=== PATIENT | female | born 1960 | race Caucasian/White ===

== ENCOUNTER 2024-10-27 21:26 | Emergency (ER) | payer MEDICARE, SELFPAY ==
[2024-10-27 21:26] VITALS: BP 152/59; PULSE 66; RESP 18; TEMP 36.5; O2SAT 98; BMI 31.6
--- NOTE | 2024-10-27 21:36 | [facility].EDGENADL ---
Discharge Plan Disposition Patient Disposition: Home, Self-Care Prescriptions Prescriptions: New amoxicillin-pot clavulanate 875-125 mg tablet 1 tab PO BID 7 Days Qty: 14 0RF No Action acetaminophen [Tylenol] 325 mg tablet 650 mg PO Q6H PRN (Reason: fever or pain) Qty: 90 0RF lidocaine [Aspercreme (lidocaine)] 4 % adhesive patch,medicated 2 patch topical DAILY Qty: 60 0RF melatonin 5 mg capsule 5 mg PO QHS Qty: 90 0RF donepezil 10 mg tablet 10 mg PO DAILY Qty: 90 3RF quetiapine 25 mg tablet 25 mg PO DAILY Qty: 90 3RF quetiapine 50 mg tablet 50 mg PO HS Qty: 90 3RF quetiapine 25 mg tablet 12.5 mg PO QAM Qty: 90 2RF amlodipine 5 mg tablet 5 mg PO DAILY Qty: 90 3RF cetirizine [All Day Allergy (cetirizine)] 10 mg tablet 10 mg PO DAILY Qty: 90 0RF memantine 10 mg tablet 10 mg PO BID Qty: 180 3RF mesalamine 1.2 gram tablet,delayed release (DR/EC) 2.4 g PO DAILY Qty: 180 0RF montelukast 10 mg tablet 10 mg PO HS Qty: 90 3RF olmesartan-hydrochlorothiazide 40-12.5 mg tablet 1 tab PO DAILY Qty: 90 3RF propranolol 10 mg tablet 10 mg PO TID Qty: 270 3RF divalproex [Depakote] 250 mg tablet,delayed release (DR/EC) 250 mg PO TID Qty: 90 2RF lorazepam 0.5 mg tablet 0.5 mg PO TID Qty: 90 0RF Referrals Follow up/Referrals: Danielito Castle MD [Primary Care Provider] - See instructions Activity Restrictions/Add. Instructions Additional Instructions/Restrictions: Please take antibiotics as prescribed for treatment of urinary tract infection. The CT scan showed that there was a mild age-indeterminate compression deformity of T12 and L1. No evidence of spinal cord injury or other injury on full CT scans. Labs otherwise normal. Clinical Impressions Clinical Impression: Acute UTI, Falls frequently, T12 compression fracture, Compression fracture of L1 vertebra Print Language Print Language: Yoruba Discharge ED Provider: Collin Segovia General Adult HPI <Adam Arauz MD - Last Filed: 10/28/24 00:20> General Chief complaint: Fall Stated complaint: fall x3 Time Seen by Provider: 10/27/24 21:55 History of Present Illness HPI narrative: Patient is a 64-year-old past medical history of type 2 diabetes, hypertension, dementia presenting for multiple falls. Patient unable to provide medical history due to baseline mental status, per EMS patient has had 3 falls today, with the most recent being unwitnessed but patient being found down by her [facility] roommate. Patient pointed to her right hip when asked if she was in pain. Related Data Previous Rx's ?Medication ?Instructions ?Recorded acetaminophen 325 mg tablet 650 mg (2 x 325 mg) PO Q6H PRN 07/20/24 (Tylenol) fever or pain #90 tabs amlodipine 5 mg tablet 5 mg PO DAILY #90 tabs 07/20/24 cetirizine 10 mg tablet (All Day 10 mg PO DAILY #90 tabs 07/20/24 Allergy (cetirizine)) donepezil 10 mg tablet 10 mg PO DAILY #90 tabs 07/20/24 lidocaine 4 % topical patch 2 patch topical DAILY #60 ea 07/20/24 (Aspercreme (lidocaine)) melatonin 5 mg capsule 5 mg PO QHS #90 caps 07/20/24 memantine 10 mg tablet 10 mg PO BID #180 tabs 07/20/24 mesalamine 1.2 gram tablet,delayed 2.4 g (2 x 1.2 gram) PO DAILY #180 07/20/24 release tabs montelukast 10 mg tablet 10 mg PO HS #90 tabs 07/20/24 olmesartan 40 1 tab PO DAILY #90 tabs 07/20/24 mg-hydrochlorothiazide 12.5 mg tablet propranolol 10 mg tablet 10 mg PO TID #270 tabs 07/20/24 quetiapine 25 mg tablet 12.5 mg (1/2 x 25 mg) PO QAM #90 07/20/24 tabs quetiapine 25 mg tablet 25 mg PO DAILY #90 tabs 07/20/24 quetiapine 50 mg tablet 50 mg PO HS #90 tabs 07/20/24 divalproex 250 mg tablet,delayed 250 mg PO TID #90 tabs 09/26/24 release (Depakote) lorazepam 0.5 mg tablet 0.5 mg PO TID #90 tabs 10/24/24 amoxicillin 875 mg-potassium 1 tab PO BID 7 days #14 tabs 10/28/24 clavulanate 125 mg tablet Allergies Allergy/AdvReac Type Severity Reaction Status Date / Time iodine Allergy Mild Verified 09/26/24 16:49 Sulfa (Sulfonamide Allergy Mild Verified 09/26/24 16:49 Antibiotics) [facility] <Adam Arauz MD - Last Filed: 10/28/24 00:20> [facility] Disclaimer: The information contained in this section may have been updated after the patient was seen, as this information can be updated by other users. Medical History Unable to care for self Impaired functional mobility, balance, and endurance Abdominal aortic aneurysm (AAA) History of vaginal delivery x 2 Abnormal colonoscopy July 2022, polyps x 3 Benign colonic polyp Dementia Seizure disorder Crohn's disease Diabetes mellitus, type II Hyperlipidemia Hypertension Surgical History History of total knee replacement right History of cholecystectomy Social History Smoking Status: Never smoker alcohol intake: current substance use type: denies use current occupational status: retired Travel in the last 8 weeks: None marital status: Have you lived/traveled outside [place] in past 30 days?: No Contact w/someone who lives/traveled outside US past 30 days?: No Exposure to someone with infectious disease in past 14 days?: No Do you have a fever (greater than 100.4 F or 38 C)?: No Have you tested positive for COVID-19: No Exposed to someone with COVID-19 in past 14 days?: No Do you have a sore throat?: No Do you have a cough?: No Do you have any weakness?: No Do you have any diarrhea?: No Are you experiencing any unusual bleeding?: No Do you have any muscle aches/pain?: No Do you have any abdominal pain?: No Are you experiencing loss of taste or smell?: No Other Medical History Have you received the Pneumonia Vaccine: No (unknown) <Adam Arauz MD - Last Filed: 10/28/24 00:20> ROS Obtained: Yes unobtainable due to mental condition Physical Exam <Adam Arauz MD - Last Filed: 10/28/24 00:20> General General appearance: in no apparent distress and other (Sleepy but arousable) Head Head exam: atraumatic Eye Eye exam: Present normal appearance and PERRL; Absent scleral icterus, conjunctival redness, jaundice or conjunctival injection ENT ENT exam: Present normal exam and normal oropharynx Neck Neck exam: Present other (C-collar in place, no obvious grimacing to C-spine palpation) Chest Chest inspection: Present normal inspection and symmetric chest wall rise; Absent tenderness (No grimacing to palpation of chest wall) Respiratory Respiratory exam: Present normal lung sounds bilaterally; Absent respiratory distress, wheezes or stridor Cardiovascular Cardiovascular exam: Present regular rate and normal rhythm Abdominal Exam Abdominal exam: Present soft; Absent distention, tenderness, guarding or rebound Extremities Exam Extremities exam: Present tenderness (Possible tenderness to right hip) Neurological Exam Neurological exam: Present other (Opens eyes to voice, follows directions, confused at baseline, withdraws to pain in all 4 extremities) Skin Skin exam: Present warm and dry Medical Decision Making <Adam Arauz MD - Last Filed: 10/28/24 00:20> Medical Records Screening: Per USPSTF and CDC recommendations, given the prevalence of disease in our region, it is our hospital?s policy to screen for HIV and viral Hepatitis for all patients aged 18 and over and those with ongoing risk factors. Vital Signs: 10/27/24 21:26 10/27/24 22:08 10/27/24 22:21 Temperature 97.7 F Temperature Source Oral Pulse Rate 58 L 64 Pulse Rate [Right] 66 Respiratory Rate 18 Blood Pressure 144/68 H 164/81 H Blood Pressure [Right Arm] 152/59 H Blood Pressure Mean 89 Blood Pressure Mean [Right Arm] 90 Blood Pressure Position [Right Arm] Supine 02 Sat by Pulse Oximetry 98 92 L 98 Oxygen Delivery Method Room Air 10/27/24 22:30 10/27/24 23:01 10/27/24 23:44 Temperature Temperature Source Pulse Rate 60 56 L 56 L Pulse Rate [Right] Respiratory Rate Blood Pressure 141/78 H 118/61 125/60 Blood Pressure [Right Arm] Blood Pressure Mean 89 81 77 Blood Pressure Mean [Right Arm] Blood Pressure Position [Right Arm] 02 Sat by Pulse Oximetry 96 93 L 95 Oxygen Delivery Method 10/28/24 00:00 10/28/24 00:37 Temperature Temperature Source Pulse Rate 56 L 65 Pulse Rate [Right] Respiratory Rate Blood Pressure 105/60 L 122/78 Blood Pressure [Right Arm] Blood Pressure Mean 70 85 Blood Pressure Mean [Right Arm] Blood Pressure Position [Right Arm] 02 Sat by Pulse Oximetry 93 L 70 L Oxygen Delivery Method Lab Data Lab Results 10/27/24 21:13: WBC 12.6 H, RBC 4.91, Hgb 13.7, Hct 41.8, MCV 85.1, MCH 27.9, MCHC 32.8, RDW 16.7, Plt Count 317, MPV 12.0 H, Neut % (Auto) 74.5, Lymph % (Auto) 13.0, [place] % (Auto) 10.3 H, Eos % (Auto) 0.2, Baso % (Auto) 1.6, Neut # (Auto) 9.4 H, Lymph # (Auto) 1.6, Carson # (Auto) 1.3 H, Eos # (Auto) 0.0, Baso # (Auto) 0.2, PT 11.4, INR 1.02, APTT 27.2, Sodium 139, Potassium 3.7, Chloride 107, Carbon Dioxide 28, Anion Gap 7.7, BUN 18 H, Creatinine 1.10 H, Estimated Creat Clear 69, Estimated GFR 50 L, Est GFR ( Amer) 60, Glucose 137 H, Calcium 9.3, Total Bilirubin 0.6, AST 26, ALT 19, Alkaline Phosphatase 67, Total Creatine Kinase 56, Troponin I < 0.01, Total Protein 6.7, Albumin 3.6, Globulin 3.1, Albumin/Globulin Ratio 1.2, Lipase 92 10/27/24 22:15: VBG pH 7.45 H, VBG pCO2 41.3, VBG pO2 21.2 L, VBG HCO3 28.1, VBG Total CO2 29.4 H, VBG O2 Saturation 42.6 L, VBG Base Excess 4.2 H, VBG Lactic Acid 1.7, Urine Color Yellow, Urine Appearance Clear, Urine pH 7.0, Ur Specific [place] 1.020, Urine Protein 1+ A, Urine Glucose (UA) Negative, Urine Ketones 1+, Urine Blood Negative, Urine Nitrate Positive A, Urine Bilirubin Negative, Urine Urobilinogen 1.0, Ur Leukocyte Esterase Trace, Urine RBC 20-50, Urine WBC 50-100, Ur Squamous Epith Cells 10-20, Amorphous Sediment 4+, Urine Bacteria 1+, Urine Mucus 2+ 10/27/24 21:13 10/27/24 21:13 Orders (Tests/Meds): ED MEDICATIONS Generic Name Dose Route Start Last Admin Trade Name Freq PRN Reason Stop Dose Admin Sodium Chloride 10 ml 10/27/24 22:03 Sodium Chloride 0.9% 10ml Flush Syringe IV 11/26/24 22:02 NEEDED PRN Maintain IV Site Discontinued Medications Generic Name Dose Route Start Last Admin Trade Name Freq PRN Reason Stop Dose Admin Ceftriaxone Sodium 1 gm/ 50 mls @ 100 mls/hr 10/28/24 00:11 10/28/24 00:17 Sodium Chloride IV 10/28/24 00:40 100 mls/hr ONCE ONE Administration ORDERS Category Date Time Status CT abdomen pelvis wo con Stat Cat Scan 10/27/24 22:[address] bony pelvis Stat Cat Scan 10/27/24 22:[address] cervical spine wo con Stat Cat Scan 10/27/24 22:[address] chest wo con Stat Cat Scan 10/27/24 22:[address] head/brain wo con Stat Cat Scan 10/27/24 22:[address] lumbar spine wo con Stat Cat Scan 10/27/24 22:[address] thoracic spine wo con Stat Cat Scan 10/27/24 22:03 Completed XR chest portable Stat Exams 10/27/24 22:03 Completed XR femur RT 2V Stat Exams 10/27/24 22:16 Completed XR knee RT 3V Stat Exams 10/27/24 22:16 Completed XR pelvis 1-2V Stat Exams 10/27/24 22:03 Completed Activated Partial Thrombo Time Stat Lab 10/27/24 21:13 Completed Complete Blood Count Auto Diff Stat Lab 10/27/24 21:13 Completed Comprehensive Metabolic Panel Stat Lab 10/27/24 21:13 Completed Creatine Kinase Stat Lab 10/27/24 21:13 Completed Lipase Stat Lab 10/27/24 21:13 Completed Prothrombin Time INR Stat Lab 10/27/24 21:13 Completed Troponin I Stat Lab 10/27/24 21:13 Completed Urinalysis and Microscopic Stat Lab 10/27/24 22:15 Completed Urine Culture Stat Micro 10/27/24 22:15 Received Venous Blood Gas Stat RT 10/27/24 22:15 Completed Medical Decision Narrative: In summary, this 64-year-old female presents to the emergency department today with fall. On initial evaluation patient is confused at baseline, no obvious deformities of extremity, no obvious grimacing to abdomen or chest wall. Due to being unable to get a good history based on patient's mental status CTs, labs and x-rays were ordered. Differential diagnosis includes but is not limited to intracranial injury, spinal cord injury, intra-abdominal injury, intrathoracic injury. Labs personally reviewed demonstrate mildly elevated creatinine, but appropriate for age, mild leukocytosis, urinalysis concerning for UTI. XR personally interpreted demonstrates no obvious pelvic or leg fracture or pneumothorax. CT imaging personally interpreted demonstrate no large intracranial hemorrhage, stroke, pneumoperitoneum, pneumothorax or dissection. On reassessment similar to previous exam, mental status unchanged, labs concerning for possible UTI, patient will be sent home on antibiotics.. <Collin Segovia MD - Last Filed: 10/28/24 01:22> Medical Records Medical records reviewed: Yes I reviewed the patient's medical records. Jonnathan Inquiry Pt receiving controlled substance: No Vital Signs: 10/27/24 21:26 10/27/24 22:08 10/27/24 22:21 Temperature 97.7 F Temperature Source Oral Pulse Rate 58 L 64 Pulse Rate [Right] 66 Respiratory Rate 18 Blood Pressure 144/68 H 164/81 H Blood Pressure [Right Arm] 152/59 H Blood Pressure Mean 89 Blood Pressure Mean [Right Arm] 90 Blood Pressure Position [Right Arm] Supine 02 Sat by Pulse Oximetry 98 92 L 98 Oxygen Delivery Method Room Air 10/27/24 22:30 10/27/24 23:01 10/27/24 23:44 Temperature Temperature Source Pulse Rate 60 56 L 56 L Pulse Rate [Right] Respiratory Rate Blood Pressure 141/78 H 118/61 125/60 Blood Pressure [Right Arm] Blood Pressure Mean 89 81 77 Blood Pressure Mean [Right Arm] Blood Pressure Position [Right Arm] 02 Sat by Pulse Oximetry 96 93 L 95 Oxygen Delivery Method 10/28/24 00:00 10/28/24 00:37 Temperature Temperature Source Pulse Rate 56 L 65 Pulse Rate [Right] Respiratory Rate Blood Pressure 105/60 L 122/78 Blood Pressure [Right Arm] Blood Pressure Mean 70 85 Blood Pressure Mean [Right Arm] Blood Pressure Position [Right Arm] 02 Sat by Pulse Oximetry 93 L 70 L Oxygen Delivery Method Lab Data Lab Results 10/27/24 21:13: WBC 12.6 H, RBC 4.91, Hgb 13.7, Hct 41.8, MCV 85.1, MCH 27.9, MCHC 32.8, RDW 16.7, Plt Count 317, MPV 12.0 H, Neut % (Auto) 74.5, Lymph % (Auto) 13.0, Carson % (Auto) 10.3 H, Eos % (Auto) 0.2, Baso % (Auto) 1.6, Neut # (Auto) 9.4 H, Lymph # (Auto) 1.6, Carson # (Auto) 1.3 H, Eos # (Auto) 0.0, Baso # (Auto) 0.2, PT 11.4, INR 1.02, APTT 27.2, Sodium 139, Potassium 3.7, Chloride 107, Carbon Dioxide 28, Anion Gap 7.7, BUN 18 H, Creatinine 1.10 H, Estimated Creat Clear 69, Estimated GFR 50 L, Est GFR ( Amer) 60, Glucose 137 H, Calcium 9.3, Total Bilirubin 0.6, AST 26, ALT 19, Alkaline Phosphatase 67, Total Creatine Kinase 56, Troponin I < 0.01, Total Protein 6.7, Albumin 3.6, Globulin 3.1, Albumin/Globulin Ratio 1.2, Lipase 92 10/27/24 22:15: VBG pH 7.45 H, VBG pCO2 41.3, VBG pO2 21.2 L, VBG HCO3 28.1, VBG Total CO2 29.4 H, VBG O2 Saturation 42.6 L, VBG Base Excess 4.2 H, VBG Lactic Acid 1.7, Urine Color Yellow, Urine Appearance Clear, Urine pH 7.0, Ur Specific [place] 1.020, Urine Protein 1+ A, Urine Glucose (UA) Negative, Urine Ketones 1+, Urine Blood Negative, Urine Nitrate Positive A, Urine Bilirubin Negative, Urine Urobilinogen 1.0, Ur Leukocyte Esterase Trace, Urine RBC 20-50, Urine WBC 50-100, Ur Squamous Epith Cells 10-20, Amorphous Sediment 4+, Urine Bacteria 1+, Urine Mucus 2+ Orders (Tests/Meds): ED MEDICATIONS Generic Name Dose Route Start Last Admin Trade Name Freq PRN Reason Stop Dose Admin Sodium Chloride 10 ml 10/27/24 22:03 Sodium Chloride 0.9% 10ml Flush Syringe IV 11/26/24 22:02 NEEDED PRN Maintain IV Site Discontinued Medications Generic Name Dose Route Start Last Admin Trade Name Freq PRN Reason Stop Dose Admin Ceftriaxone Sodium 1 gm/ 50 mls @ 100 mls/hr 10/28/24 00:11 10/28/24 00:17 Sodium Chloride IV 10/28/24 00:40 100 mls/hr ONCE ONE Administration ORDERS Category Date Time Status CT abdomen pelvis wo con Stat Cat Scan 10/27/24 22:[address] bony pelvis Stat Cat Scan 10/27/24 22:[address] cervical spine wo con Stat Cat Scan 10/27/24 22:[address] chest wo con Stat Cat Scan 10/27/24 22:[address] head/brain wo con Stat Cat Scan 10/27/24 22:[address] lumbar spine wo con Stat Cat Scan 10/27/24 22:[address] thoracic spine wo con Stat Cat Scan 10/27/24 22:03 Completed XR chest portable Stat Exams 10/27/24 22:03 Completed XR femur RT 2V Stat Exams 10/27/24 22:16 Completed XR knee RT 3V Stat Exams 10/27/24 22:16 Completed XR pelvis 1-2V Stat Exams 10/27/24 22:03 Completed Activated Partial Thrombo Time Stat Lab 10/27/24 21:13 Completed Complete Blood Count Auto Diff Stat Lab 10/27/24 21:13 Completed Comprehensive Metabolic Panel Stat Lab 10/27/24 21:13 Completed Creatine Kinase Stat Lab 10/27/24 21:13 Completed Lipase Stat Lab 10/27/24 21:13 Completed Prothrombin Time INR Stat Lab 10/27/24 21:13 Completed Troponin I Stat Lab 10/27/24 21:13 Completed Urinalysis and Microscopic Stat Lab 10/27/24 22:15 Completed Urine Culture Stat Micro 10/27/24 22:15 Received Venous Blood Gas Stat RT 10/27/24 22:15 Completed Medical Decision Narrative: In summary, this 64-year-old female presents to the emergency department today with fall. On initial evaluation patient is confused at baseline, no obvious deformities of extremity, no obvious grimacing to abdomen or chest wall. Due to being unable to get a good history based on patient's mental status CTs, labs and x-rays were ordered. Differential diagnosis includes but is not limited to intracranial injury, spinal cord injury, intra-abdominal injury, intrathoracic injury. Labs personally reviewed demonstrate mildly elevated creatinine, but appropriate for age, mild leukocytosis, urinalysis concerning for UTI. XR personally interpreted demonstrates no obvious pelvic or leg fracture or pneumothorax. CT imaging personally interpreted demonstrate no large intracranial hemorrhage, stroke, pneumoperitoneum, pneumothorax or dissection. On reassessment similar to previous exam, mental status unchanged, labs concerning for possible UTI, patient will be sent home on antibiotics. Luca SUGGS: I assumed care of the patient at the time of handoff from the prior provider. CT imaging does show a mild compression deformity of T12 and L1. These are age-indeterminate. I called and spoke with the patient's who is her POA and discussed these findings with him. He reports that he would feel most comfortable with her being discharged back home to [facility] with treatment for UTI and continued monitoring, rather than pursuing acute spine evaluation at this time. I think this is reasonable given the mildness of the injury, uncertain acuity, and patient functional status. Patient was given ceftriaxone and discharged with prescription for Augmentin for treatment for urinary tract infection given sulfa allergy. Critical Care <Collin Segovia MD - Last Filed: 10/28/24 01:22> Critical Care Time Critical Care Time: No
--- NOTE | 2024-10-27 22:03 | CT_ITS ---
PROCEDURE INFORMATION: Exam: CT Pelvis Without Contrast, Skeleton Exam date and time: 10/27/2024 11:32 PM Age: 64 years old Clinical indication: Injury or trauma; Fall; Additional info: Trauma, critical injury suspected TECHNIQUE: Imaging protocol: Computed tomography of the pelvis without contrast. Exam focused on the skeleton. Radiation optimization: All CT scans at this facility use at least one of these dose optimization techniques: automated exposure control; mA and/or kV adjustment per patient size (includes targeted exams where dose is matched to clinical indication); or iterative reconstruction. COMPARISON: 1. CT LUMBAR SPINE WO CON 10/27/2024 11:30 PM 2. CR XR PELVIS 1-2V 10/27/2024 10:23 PM FINDINGS: Urinary bladder: Normal urinary bladder. Bones/joints: No acute fracture or dislocation. Soft tissues: Small fat containing midline ventral hernias. No significant soft tissue hematoma. IMPRESSION: No acute findings.
--- NOTE | 2024-10-27 22:03 | XR_ITS ---
PROCEDURE INFORMATION: Exam: XR Chest Exam date and time: 10/27/2024 10:23 PM Age: 64 years old Clinical indication: Injury or trauma; Fall; Other: Pain TECHNIQUE: Imaging protocol: Radiologic exam of the chest. Views: 1 view. COMPARISON: CT CHEST WO CON 10/27/2024 11:35 PM FINDINGS: Lungs: No consolidation, mass, or pulmonary edema. Pleural spaces: No pneumothorax or pleural effusion. Heart/Mediastinum: Cardiomediastinal silhouette is within normal limits. Bones/joints: No acute osseous abnormality. IMPRESSION: No acute findings.
--- NOTE | 2024-10-27 22:03 | CT_ITS ---
PROCEDURE INFORMATION: Exam: CT Chest Without Contrast; Diagnostic Exam date and time: 10/27/2024 11:35 PM Age: 64 years old Clinical indication: Injury or trauma; Fall; Additional info: Trauma, critical injury suspected TECHNIQUE: Imaging protocol: Diagnostic computed tomography of the chest without contrast. Radiation optimization: All CT scans at this facility use at least one of these dose optimization techniques: automated exposure control; mA and/or kV adjustment per patient size (includes targeted exams where dose is matched to clinical indication); or iterative reconstruction. COMPARISON: 1. CT THORACIC SPINE WO CON 10/27/2024 11:[address] ABDOMEN PELVIS WO CON 10/27/2024 11:37 PM FINDINGS: Lungs: Mild bilateral hypoventilatory changes. No consolidation or definite pulmonary contusion. Pleural spaces: No pneumothorax or pleural effusion. Heart: Borderline cardiomegaly. No pericardial effusion. Coronary arteries: Mild coronary artery calcifications. Lymph nodes: No adenopathy. Vasculature: No thoracic aortic aneurysm. Bones/joints: Age indeterminate mild compression fractures of T12 and L1. No other fractures identified. Soft tissues: No definite chest wall hematoma. IMPRESSION: 1. Age indeterminate mild compression fractures of T12 and L1. 2. Mild hypoventilatory changes.
--- NOTE | 2024-10-27 22:03 | CT_ITS ---
PROCEDURE INFORMATION: Exam: CT Thoracic Spine Without Contrast Exam date and time: 10/27/2024 11:27 PM Age: 64 years old Clinical indication: Injury or trauma; Fall; Additional info: Trauma, critical injury suspected TECHNIQUE: Imaging protocol: Computed tomography of the thoracic spine without contrast. Radiation optimization: All CT scans at this facility use at least one of these dose optimization techniques: automated exposure control; mA and/or kV adjustment per patient size (includes targeted exams where dose is matched to clinical indication); or iterative reconstruction. COMPARISON: 1. CT CERVICAL SPINE WO CON 10/27/2024 11:[address] LUMBAR SPINE WO CON 10/27/2024 11:30 PM FINDINGS: Bones/joints: Age indeterminate mild compression fractures of T12 and L1. Mild chronic degenerative changes without significant spinal stenosis. Soft tissues: Visualized paravertebral soft tissues demonstrate no acute abnormality. Lungs: Mild hypoventilatory changes in the visualized lungs. IMPRESSION: Age indeterminate mild compression fractures of T12 and L1. If clinically indicated, consider further evaluation with MRI to assess for marrow edema and acuity.
--- NOTE | 2024-10-27 22:03 | CT_ITS ---
PROCEDURE INFORMATION: Exam: CT Lumbar Spine Without Contrast Exam date and time: 10/27/2024 11:30 PM Age: 64 years old Clinical indication: Injury or trauma; Fall; Additional info: Trauma, critical injury suspected TECHNIQUE: Imaging protocol: Computed tomography of the lumbar spine without contrast. Radiation optimization: All CT scans at this facility use at least one of these dose optimization techniques: automated exposure control; mA and/or kV adjustment per patient size (includes targeted exams where dose is matched to clinical indication); or iterative reconstruction. COMPARISON: 1. CT THORACIC SPINE WO CON 10/27/2024 11:[address] ABDOMEN PELVIS WO CON 10/27/2024 11:37 PM FINDINGS: Bones/joints: Age indeterminate mild compression fractures of T12 and L1. No retropulsion. [id number] multilevel degenerative changes without severe spinal stenosis. Soft tissues: Visualized paravertebral soft tissues demonstrate no acute abnormality. IMPRESSION: Age indeterminate mild compression fractures of T12 and L1. No retropulsion. If clinically indicated, consider further evaluation with MRI to assess for marrow edema and acuity.
--- NOTE | 2024-10-27 22:03 | CT_ITS ---
PROCEDURE INFORMATION: Exam: CT Abdomen And Pelvis Without Contrast Exam date and time: 10/27/2024 11:37 PM Age: 64 years old Clinical indication: Injury or trauma; Fall; Additional info: Trauma, critical injury suspected TECHNIQUE: Imaging protocol: Computed tomography of the abdomen and pelvis without contrast. Radiation optimization: All CT scans at this facility use at least one of these dose optimization techniques: automated exposure control; mA and/or kV adjustment per patient size (includes targeted exams where dose is matched to clinical indication); or iterative reconstruction. COMPARISON: 1. CT BONY PELVIS 10/27/2024 11:[address] CHEST WO CON 10/27/2024 11:[address] LUMBAR SPINE WO CON 10/27/2024 11:30 PM FINDINGS: Limitations: Evaluation is limited without IV and oral contrast. Liver: Normal liver. Gallbladder and biliary ducts: Status post cholecystectomy. No biliary dilatation. Pancreas: Normal pancreas. No ductal dilation. Spleen: Status post splenectomy. Adrenal glands: Normal adrenal glands. Kidneys and ureters: Normal kidneys. No hydronephrosis. No calculus. Stomach and bowel: No bowel wall thickening. No bowel obstruction. Appendix: Normal appendix. Intraperitoneal space: No free fluid or free air. Vasculature: Scattered vascular calcifications. No abdominal aortic aneurysm. Lymph nodes: No adenopathy. Urinary bladder: Normal urinary bladder. Reproductive: Uterus and adnexal structures are grossly unremarkable. Bones/joints: Age indeterminate mild compression fractures of T12 and L1. No other acute osseous abnormality. Severe chronic degenerative changes in the lumbar spine. Soft tissues: Small fat containing midline ventral and umbilical hernias. No definite soft tissue hematoma. IMPRESSION: 1. Age indeterminate mild compression fractures of T12 and L1. 2. Status post splenectomy. 3. Status post cholecystectomy.
--- NOTE | 2024-10-27 22:03 | CT_ITS ---
PROCEDURE INFORMATION: Exam: CT Head Without Contrast Exam date and time: 10/27/2024 11:22 PM Age: 64 years old Clinical indication: Injury or trauma; Fall; Additional info: Trauma, critical injury suspected TECHNIQUE: Imaging protocol: Computed tomography of the head without contrast. Radiation optimization: All CT scans at this facility use at least one of these dose optimization techniques: automated exposure control; mA and/or kV adjustment per patient size (includes targeted exams where dose is matched to clinical indication); or iterative reconstruction. COMPARISON: CT HEAD/BRAIN WO CON 10/27/2024 11:22 PM FINDINGS: Brain: Age-related volume loss. Decreased attenuation of the supratentorial white matter is likely secondary to chronic microvascular ischemia. No acute intracranial hemorrhage, midline shift or intracranial mass effect. Cerebral ventricles: Ventriculomegaly is commensurate for degree of volume loss. Paranasal sinuses: Visualized sinuses are unremarkable. No fluid levels. Mastoid air cells: Visualized mastoid air cells are well aerated. Bones: Unremarkable. No acute fracture. Soft tissues: Unremarkable. IMPRESSION: No acute intracranial abnormality.
--- NOTE | 2024-10-27 22:03 | CT_ITS ---
PROCEDURE INFORMATION: Exam: CT Cervical Spine Without Contrast Exam date and time: 10/27/2024 11:25 PM Age: 64 years old Clinical indication: Injury or trauma; Fall; Additional info: Trauma, critical injury suspected TECHNIQUE: Imaging protocol: Computed tomography of the cervical spine without contrast. Radiation optimization: All CT scans at this facility use at least one of these dose optimization techniques: automated exposure control; mA and/or kV adjustment per patient size (includes targeted exams where dose is matched to clinical indication); or iterative reconstruction. COMPARISON: CT HEAD/BRAIN WO CON 10/27/2024 11:22 PM FINDINGS: Limitations: Limited by artifact arising from metallic dental hardware/dental amalgam. Bones: Trace anterolisthesis of C7 on T1, T1 on T2 and T2 on T3. Trace retrolisthesis of C5 on C6. Vertebral body heights are preserved. Mild degenerative change about the dens. Moderate prevertebral osteophytosis. Bilateral facet joint degenerative change. Multilevel disc space narrowing with degenerative endplate change. No acute cervical spine fracture. At least mild central canal stenosis at C5-C6 and C6-C7. Multilevel cervical foraminal stenoses. Lungs: Lung apices are normal. Pleural spaces: No visible pneumothorax. Vasculature: Vascular calcification. Soft tissues: Unremarkable. IMPRESSION: No acute cervical spine fracture.
--- NOTE | 2024-10-27 22:03 | XR_ITS ---
PROCEDURE INFORMATION: Exam: XR Pelvis Exam date and time: 10/27/2024 10:23 PM Age: 64 years old Clinical indication: Injury or trauma; Fall; Other: Pain TECHNIQUE: Imaging protocol: Radiologic exam of the pelvis. Views: 1 or 2 view. COMPARISON: CT BONY PELVIS 10/27/2024 11:32 PM FINDINGS: Bones/joints: No acute fracture or dislocation. Soft tissues: Unremarkable. IMPRESSION: No acute findings.
[2024-10-27 22:08] VITALS: BP 144/68; PULSE 58; O2SAT 92
--- NOTE | 2024-10-27 22:16 | XR_ITS ---
PROCEDURE INFORMATION: Exam: XR Right Knee Exam date and time: 10/27/2024 10:23 PM Age: 64 years old Clinical indication: Injury or trauma; Fall; Other: Pain; Additional info: Right leg pain TECHNIQUE: Imaging protocol: Radiologic exam of the right knee. Views: 3 views. COMPARISON: CR XR FEMUR RT 2V 10/27/2024 10:23 PM FINDINGS: Bones/joints: Status post right total knee arthroplasty, with hardware appearing grossly unremarkable. No acute fracture or dislocation. No definite joint effusion. Soft tissues: Normal. IMPRESSION: 1. No acute findings. 2. Status post right total knee arthroplasty, with hardware appearing grossly unremarkable.
--- NOTE | 2024-10-27 22:16 | XR_ITS ---
PROCEDURE INFORMATION: Exam: XR Right Femur Exam date and time: 10/27/2024 10:23 PM Age: 64 years old Clinical indication: Injury or trauma; Fall; Other: Pain; Additional info: Right leg pain TECHNIQUE: Imaging protocol: Radiologic exam of the right femur. Views: 2 views. COMPARISON: 1. CR XR KNEE RT 3V 10/27/2024 10:[address] BONY PELVIS 10/27/2024 11:32 PM 3. CR XR PELVIS 1-2V 10/27/2024 10:23 PM FINDINGS: Bones/joints: No acute fracture or dislocation. Status post right total knee arthroplasty, with no obvious complication noted. Soft tissues: Unremarkable. IMPRESSION: No acute findings.
[2024-10-27 22:21] VITALS: BP 164/81; PULSE 64; O2SAT 98
[2024-10-27 22:27] LABS: Albumin Level 3.6 g/dl (3.5-5.0)
[2024-10-27 22:28] LABS: Chloride 107 mmol/L (98-107); Potassium 3.7 mmoL/L (3.5-5.1); Sodium 139 mmol/L (136-145)
[2024-10-27 22:29] LABS: Appearance,Urine CLEAR (Clear); Blood, Urine Negative (Negative); Color,Urine YELLOW (Yellow); Glucose,Urine (UA) Negative (Negative); Ketones,Urine 1+ (Negative); Leukocyte Esterase,Urine TRACE (Negative); Microscopic, Urine URINE MICROSCOPIC (MICROSCOPIC); Nitrate,Urine POSITIVE (Negative); Protein,Urine 1+ (Negative)
[2024-10-27 22:30] VITALS: BP 141/78; PULSE 60; O2SAT 96
[2024-10-27 22:30] LABS: Alanine Aminotransferase 19 U/L (12-78); Alkaline Phosphatase 67 U/L (38-126); Anion Gap 7.7 mEq/L (5-15); Aspartate Amino Transferase 26 U/L (14-36); Bilirubin,Total 0.6 mg/dl (0.2-1.3); Blood Urea Nitrogen 18 mg/dl (7-17); Carbon Dioxide 28 mmol/L (22.0-30.0); Creatinine Clearance Estimated 69 mL/min (50-200); Estimated Glomerular Filt Rate 50 ml/min (>60); GFR (African American) 60 ML/MIN (>60)
[2024-10-27 22:31] LABS: Bilirubin,Urine Negative (Negative)
[2024-10-27 22:31] LABS: Albumin/Globulin Ratio 1.2 (1.1-1.8); Calcium 9.3 mg/dl (8.4-10.2); Creatine Kinase 56 U/L (30-135); Globulin 3.1 g/dL (1.3-3.2); Glucose 137 mg/dl (74-100); Lipase 92 U/L (23-300); Total Protein,Serum 6.7 g/dl (6.3-8.2)
[2024-10-27 22:34] LABS: Lactate Venous 1.7 mmol/L (0.4-2.0); VBG Base Excess 4.2 mmol/L (-2.4-2.3); VBG HCO3 28.1 mmol/L (23-30); VBG Oxygen Saturation 42.6 % (50-70); VBG PCO2 41.3 mmol/L (35-51); VBG PH 7.45 mmol/L (7.31-7.41); VBG PO2 21.2 mmol/L (28-40); VBG Total CO2 29.4 mmol/L (23-27)
[2024-10-27 22:34] LABS: Activated Partial Thrombo Time 27.2 seconds (22.8-30.6); INR 1.02 (0.9-1.1); Prothrombin Time 11.4 seconds (10.1-12.5)
[2024-10-27 22:40] LABS: Hematocrit 41.8 % (37.0-47.0); Hemoglobin 13.7 g/dL (12.2-16.2); Mean Corpuscular HGB Conc 32.8 g/dL (31.8-35.4); Mean Corpuscular Hemoglobin 27.9 pg (27.0-31.2); Mean Corpuscular Volume 85.1 fl (81-99); Platelet Count 317 K/mm3 (142-424); Red Blood Count 4.91 M/mm3 (4.20-5.40); Red Cell Distribution Width 16.7 % (11.5-17.5); White Blood Count 12.6 K/mm3 (4.8-10.8)
[2024-10-27 22:41] LABS: Basophils # 0.2 K/mm3 (0-0.2); Basophils % 1.6 % (0.1-2.0); Eosinophils % 0.2 % (0.1-12.0); Lymphocytes # 1.6 K/mm3 (0.7-4.5); Monocytes # 1.3 K/mm3 (0.1-1.0); Monocytes % 10.3 % (1.7-9.3); Neutrophils # 9.4 K/mm3 (1.8-7.8); Neutrophils % 74.5 % (37.0-80.0)
[2024-10-27 22:44] LABS: RBC,Urine 20-50 #/hpf (0-3); WBC,Urine 50-100 #/hpf (0-3)
[2024-10-27 22:44] LABS: Troponin I < 0.01 ng/ml (0.00-0.034)
[2024-10-27 22:45] LABS: Amorphous Sediment,Urine 4+ /lpf; Bacteria,Urine 1+ /lpf
[2024-10-27 22:46] LABS: Mucus,Urine 2+ /lpf
[2024-10-27 23:01] VITALS: BP 118/61; PULSE 56; O2SAT 93
[2024-10-27 23:44] VITALS: BP 125/60; PULSE 56; O2SAT 95
[2024-10-28] VITALS: BP 105/60; PULSE 56; O2SAT 93
[2024-10-28] MEDS: CEFTRIAXONE 1 GM 1 GM in 0.9 % SODIUM CHLORIDE 50 ML IV (00:17)
[2024-10-28 00:37] VITALS: BP 122/78; PULSE 65; O2SAT 70
--- NOTE | 2024-10-28 01:30 | PC.NURSE ---
Report called to JONA Luna at [facility]. Updated on abx that was send to LTC nursing facility, and plan of care. Proper paperwork sent with patient by EMS.
[2024-10-28 01:41] VITALS: BP 100/52; PULSE 54; RESP 15; TEMP 36.6; O2SAT 98
--- NOTE | 2024-10-29 10:45 | PC.NURSE ---
urine culture discussed with , pt dc with augmentin, no new orders due to pt allergies
== END 2024-10-28 01:44 | disposition home or self-care (01) ==
PROVIDERS: Student in an Organized Health Care Education/Training Program; Emergency Provider Emergency Medicine; PCP Family Medicine
DX: S32.010A Wedge compression fracture of first lumbar vertebra, initial encounter for closed fracture (principal); S22.080A Wedge compression fracture of T11-T12 vertebra, initial encounter for closed fracture; N39.0 Urinary tract infection, site not specified; R29.6 Repeated falls; M25.551 Pain in right hip; W19.XXXA Unspecified fall, initial encounter; Z91.81 History of falling; Y93.9 Activity, unspecified; Y92.129 Unspecified place in nursing home as the place of occurrence of the external cause
CPT/HCPCS: 70450; 71045; 71250; 72125; 72128; 72131; 72170; 72192; 73552; 73562; 74176; 80053; 81001; 82550; 82803; 83690; 84484; 85025; 85610; 85730; 87086; 87088; 87186; 96365; 96374; 99285; J0696

== ENCOUNTER 2024-11-01 14:42 | Outpatient (CLI) | payer MEDICARE, SELFPAY ==
[2024-11-01 15:55] LABS: Valproic Acid, (Depakene) 46.7 ug/ml (50-100)
== END 2024-11-01 23:59 | disposition home or self-care (01) ==
LOC: LAB.DROPOF 14:44
PROVIDERS: PCP Family Medicine; Visit Provider Family Medicine
DX: G40.909 Epilepsy, unspecified, not intractable, without status epilepticus (principal)
CPT/HCPCS: 80164

== ENCOUNTER 2024-11-20 18:45 | Outpatient (CLI) | payer MEDICARE, SELFPAY ==
[2024-11-20 18:56] LABS: Microscopic, Urine URINE MICROSCOPIC (MICROSCOPIC)
[2024-11-20 21:53] LABS: Appearance,Urine CLEAR (Clear); Blood, Urine TRACE-I (Negative); Color,Urine YELLOW (Yellow); Glucose,Urine (UA) Negative (Negative); Ketones,Urine TRACE (Negative); Leukocyte Esterase,Urine 1+ (Negative); Nitrate,Urine Negative (Negative); Protein,Urine TRACE (Negative); Urobilinogen,Urine 0.2 EU/dl (0.2)
[2024-11-20 22:19] LABS: Bilirubin,Urine 1+ (Negative)
[2024-11-20 22:22] LABS: Bacteria,Urine 1+ /lpf
== END 2024-11-20 23:59 | disposition home or self-care (01) ==
LOC: LAB.DROPOF 18:48
PROVIDERS: PCP Family Medicine; Visit Provider Family Medicine
DX: R30.0 Dysuria (principal); R10.819 Abdominal tenderness, unspecified site
CPT/HCPCS: 81001; 87086

== ENCOUNTER 2024-12-01 19:30 | Emergency (ER) | payer MEDICARE, SELFPAY ==
--- NOTE | 2024-12-01 19:30 | ED_ITS ---
<Statement entered by Jagruti Fernandes DO - 12/01/24 23:12> I was consulted by the MAGDALENE, and we discussed the complexity of the problems being addressed. I approved the treatment and management plan for this patient's care in the emergency department, thus performing a substantive portion of the medical decision making. I also assumed solo care of the patient at time of departure of the MAGDALENE. CT scans concerning for scalp hematoma but no other obvious acute traumatic injury. Patient is resting comfortably, sleeping soundly after receiving the Ativan for the purposes of scan. She has reassuring vital signs on cardiac telemetry without focal neurologic deficit, so I feel she is appropriate for discharge back to nursing facility. Strict return precautions were given. EMS transport was arranged. Jagruti Fernandes DO Discharge Plan Prescriptions Prescriptions: No Action atorvastatin 20 mg tablet 20 mg PO DAILY acetaminophen [Tylenol] 325 mg tablet 650 mg PO Q6H PRN (Reason: fever or pain) Qty: 90 0RF lidocaine [Aspercreme (lidocaine)] 4 % adhesive patch,medicated 2 patch topical DAILY Qty: 60 0RF melatonin 5 mg capsule 5 mg PO QHS Qty: 90 0RF donepezil 10 mg tablet 10 mg PO DAILY Qty: 90 3RF quetiapine 25 mg tablet 25 mg PO DAILY Qty: 90 3RF quetiapine 50 mg tablet 50 mg PO HS Qty: 90 3RF quetiapine 25 mg tablet 12.5 mg PO QAM Qty: 90 2RF amlodipine 5 mg tablet 5 mg PO DAILY Qty: 90 3RF cetirizine [All Day Allergy (cetirizine)] 10 mg tablet 10 mg PO DAILY Qty: 90 0RF memantine 10 mg tablet 10 mg PO BID Qty: 180 3RF mesalamine 1.2 gram tablet,delayed release (DR/EC) 2.4 g PO DAILY Qty: 180 0RF montelukast 10 mg tablet 10 mg PO HS Qty: 90 3RF olmesartan-hydrochlorothiazide 40-12.5 mg tablet 1 tab PO DAILY Qty: 90 3RF propranolol 10 mg tablet 10 mg PO TID Qty: 270 3RF divalproex [Depakote] 250 mg tablet,delayed release (DR/EC) 250 mg PO TID Qty: 90 2RF lorazepam 0.5 mg tablet 0.5 mg PO TID Qty: 90 5RF amoxicillin-pot clavulanate 875-125 mg tablet 1 tab PO BID 7 Days Qty: 14 0RF Referrals Follow up/Referrals: Danielito Castle MD [Primary Care Provider] - See instructions Print Language Print Language: Welsh Discharge ED Provider: Jagruti Fernandes General Adult HPI General Stated complaint: fall Time Seen by Provider: 12/01/24 19:36 History of Present Illness HPI narrative: Patient presents for evaluation of a fall. Patient was walking in her jail and tripped and fell face first in front of the nursing staff. She suffered no apparent injury except a hematoma above her left eye however patient nonverbal thus she was sent to the emerged department for evaluation. On arrival patient has no ability to communicate her complaints and cannot even shake her head yes or no but is awake but not interactive which is apparently her functional baseline. Related Data Home Medications ?Medication ?Instructions ?Recorded ?Confirmed atorvastatin 20 mg tablet 20 mg PO DAILY 10/31/24 10/31/24 Previous Rx's ?Medication ?Instructions ?Recorded acetaminophen 325 mg tablet 650 mg (2 x 325 mg) PO Q6H PRN 07/20/24 (Tylenol) fever or pain #90 tabs amlodipine 5 mg tablet 5 mg PO DAILY #90 tabs 07/20/24 cetirizine 10 mg tablet (All Day 10 mg PO DAILY #90 tabs 07/20/24 Allergy (cetirizine)) donepezil 10 mg tablet 10 mg PO DAILY #90 tabs 07/20/24 lidocaine 4 % topical patch 2 patch topical DAILY #60 ea 07/20/24 (Aspercreme (lidocaine)) melatonin 5 mg capsule 5 mg PO QHS #90 caps 07/20/24 memantine 10 mg tablet 10 mg PO BID #180 tabs 07/20/24 mesalamine 1.2 gram tablet,delayed 2.4 g (2 x 1.2 gram) PO DAILY #180 07/20/24 release tabs montelukast 10 mg tablet 10 mg PO HS #90 tabs 07/20/24 olmesartan 40 1 tab PO DAILY #90 tabs 07/20/24 mg-hydrochlorothiazide 12.5 mg tablet propranolol 10 mg tablet 10 mg PO TID #270 tabs 07/20/24 quetiapine 25 mg tablet 12.5 mg (1/2 x 25 mg) PO QAM #90 07/20/24 tabs quetiapine 25 mg tablet 25 mg PO DAILY #90 tabs 07/20/24 quetiapine 50 mg tablet 50 mg PO HS #90 tabs 07/20/24 divalproex 250 mg tablet,delayed 250 mg PO TID #90 tabs 09/26/24 release (Depakote) amoxicillin 875 mg-potassium 1 tab PO BID 7 days #14 tabs 10/28/24 clavulanate 125 mg tablet lorazepam 0.5 mg tablet 0.5 mg PO TID #90 tabs 11/23/24 Allergies Allergy/AdvReac Type Severity Reaction Status Date / Time iodine Allergy Mild Verified 11/04/24 13:00 Sulfa (Sulfonamide Allergy Mild Verified 11/04/24 13:00 Antibiotics) [facility] Disclaimer: The information contained in this section may have been updated after the patient was seen, as this information can be updated by other users. Medical History (Updated 11/04/24 @ 13:07 by Carol Chaves APRN) Unable to care for self Impaired functional mobility, balance, and endurance Abdominal aortic aneurysm (AAA) History of vaginal delivery Abnormal colonoscopy Benign colonic polyp Dementia Seizure disorder Crohn's disease Diabetes mellitus, type II Hyperlipidemia Hypertension Surgical History History of total knee replacement History of cholecystectomy Social History Smoking Status: Never smoker alcohol intake: current substance use type: denies use current occupational status: retired Travel in the last 8 weeks: None marital status: Have you lived/traveled outside [place] in past 30 days?: No Contact w/someone who lives/traveled outside US past 30 days?: No Exposure to someone with infectious disease in past 14 days?: No Do you have a fever (greater than 100.4 F or 38 C)?: No Have you tested positive for COVID-19: No Exposed to someone with COVID-19 in past 14 days?: No Do you have a sore throat?: No Do you have a cough?: No Do you have any weakness?: No Do you have any diarrhea?: No Are you experiencing any unusual bleeding?: No Do you have any muscle aches/pain?: No Do you have any abdominal pain?: No Are you experiencing loss of taste or smell?: No Other Medical History Have you received the Pneumonia Vaccine: No (unknown) ROS Obtained: Yes unobtainable due to mental status and Yes unobtainable due to mental condition Physical Exam General General appearance: alert Respiratory Respiratory exam: Present normal lung sounds bilaterally Cardiovascular Cardiovascular exam: Present regular rate Neurological Exam Neurological exam: Present alert Medical Decision Making Medical Records Medical records reviewed: Yes I reviewed the patient's medical records. Screening: Per USPSTF and CDC recommendations, given the prevalence of disease in our region, it is our hospital?s policy to screen for HIV and viral Hepatitis for all patients aged 18 and over and those with ongoing risk factors. Jonnathan Inquiry Pt receiving controlled substance: No Lab Data Lab results reviewed: Yes I reviewed the patient's lab results. Lab Results 12/01/24 19:23: WBC 9.9, RBC 4.75, Hgb 13.1, Hct 39.8, MCV 83.8, MCH 27.6, MCHC 32.9, RDW 17.0, Plt Count 387, MPV 11.4 H, Neut % (Auto) 69.2, Lymph % (Auto) 13.4, [place] % (Auto) 13.4 H, Eos % (Auto) 0.9, Baso % (Auto) 2.5 H, Neut # (Auto) 6.8, Lymph # (Auto) 1.3, [place] # (Auto) 1.3 H, Eos # (Auto) 0.1, Baso # (Auto) 0.3 H, Sodium 140, Potassium 4.2, Chloride 106, Carbon Dioxide 24, Anion Gap 14.2, BUN 22 H, Creatinine 1.30 H, Estimated GFR 41 L, Est GFR ( Amer) 50 L, Glucose 111 H, Calcium 9.2, Magnesium 1.7, Total Bilirubin 0.3, AST 32, ALT 22, Alkaline Phosphatase 62, Total Protein 7.1, Albumin 4.0, Globulin 3.1, Albumin/Globulin Ratio 1.3 12/01/24 19:23 12/01/24 19:23 Orders (Tests/Meds): ED MEDICATIONS Generic Name Dose Route Start Last Admin Trade Name Freq PRN Reason Stop Dose Admin Sodium Chloride 10 ml 12/01/24 20:42 12/01/24 21:48 Sodium Chloride 0.9% 10ml Vial IV 12/31/24 20:41 10 ml NEEDED PRN Administration to Dilute Lorazepam inj Sodium Chloride 10 ml 12/01/24 21:47 12/01/24 21:48 Sodium Chloride 0.9% 10ml Syr (Rad Only) IV 12/31/24 21:46 10 ml NEEDED PRN Administration Maintain IV Site Discontinued Medications Generic Name Dose Route Start Last Admin Trade Name Freq PRN Reason Stop Dose Admin Acetaminophen 1,000 mg 12/01/24 19:36 12/01/24 21:24 Acetaminophen 500mg Tab PO 12/01/24 19:37 Not Given ONCE ONE Lactated Ringer's 1,000 mls @ 999 mls/hr 12/01/24 19:36 12/01/24 20:09 Lactated Ringer's 1000 Ml Bag IV 12/01/24 20:36 999 mls/hr .Q1H1M ONE Administration Iopamidol 80 ml 12/01/24 21:47 12/01/24 21:49 Iopamidol-370 (76%);100ml Bottle IV 12/01/24 21:48 80 ml ONCE ONE Administration Lorazepam 0.5 mg 12/01/24 20:42 12/01/24 21:12 Lorazepam 2mg/Ml Vial IV 12/01/24 20:43 0.5 mg ONCE ONE Administration Ondansetron HCl 4 mg 12/01/24 19:36 12/01/24 20:08 Ondansetron 4mg/2ml Vial IV 12/01/24 19:37 4 mg ONCE ONE Administration Sodium Chloride 40 ml 12/01/24 21:47 12/01/24 21:48 0.9 % Sodium Chloride 50 Ml Vial IV 12/01/24 21:48 40 ml ONCE ONE Administration ORDERS Category Date Time Status CT angio head Stat Cat Scan 12/01/24 19:[address] angio neck Stat Cat Scan 12/01/24 19:[address] bony pelvis Stat Cat Scan 12/01/24 19:[address] cervical spine wo con Stat Cat Scan 12/01/24 19:[address] facial bones wo con Stat Cat Scan 12/01/24 19:[address] head/brain wo con Stat Cat Scan 12/01/24 19:[address] lumbar spine wo con Stat Cat Scan 12/01/24 19:[address] thoracic spine wo con Stat Cat Scan 12/01/24 19:40 Ordered CBC w/Auto Diff [Complete Blood Count Auto Diff] Stat Lab 12/01/24 19:23 Completed CMP [Comprehensive Metabolic Panel] Stat Lab 12/01/24 19:23 Completed Magnesium Stat Lab 12/01/24 19:23 Completed Rapid PCR Covid and Flu A/B Stat Lab 12/01/24 19:38 Ordered UA [Urinalysis and Microscopic] Stat Lab 12/01/24 19:38 Ordered Medical Decision Narrative: In summary patient is a 64-year-old female who presents to the emergency department for evaluation of face first fall. Patient is [hemodynamically stable/unstable] upon arrival, [febrile/afebrile]. Physical exam is remarkable for a large hematoma over the left upper forehead with an abrasion but no palpable bony deformity. I do not feel any bony deformity in the cervical spine or dorsal spine. Patient moves all 4 extremities. I am unable to appreciate any focal neurologic deficits. Her pupils are equal round reactive to light however patient cannot follow commands and that is her functional baseline. Differential diagnosis includes facial fracture intracranial bleed cervical spine injury etc. Initial workup will be conducted with ED trauma scans urinalysis hematologic labs.. Initial interventions include crystalloid bolus and Tylenol for now. Initial workup is ordered and pending at the time of handoff to Dr. Fernandes at 2100 hrs. Critical Care Critical Care Time Critical Care Time: Yes Attestation: On 12/01/24, the high probability of a clinically significant, sudden or life threatening deterioration of the following system(s) required my full and direct attention, intervention and personal management. The time I documented below is in addition to time spent performing reported procedures but includes the following listed in this critical care notation. Total Time Total Critical Care Time: 35
--- NOTE | 2024-12-01 19:40 | CT_ITS ---
PROCEDURE INFORMATION: Exam: CT Maxillofacial Without Contrast Exam date and time: 12/01/2024 9:51 PM Age: 64 years old Clinical indication: Injury or trauma; Fall; Blunt trauma (contusions or hematomas); Forehead; Additional info: Trauma, critical injury suspected TECHNIQUE: Imaging protocol: Computed tomography of the face without contrast. Radiation optimization: All CT scans at this facility use at least one of these dose optimization techniques: automated exposure control; mA and/or kV adjustment per patient size (includes targeted exams where dose is matched to clinical indication); or iterative reconstruction. COMPARISON: 1. CT HEAD/BRAIN WO CON 12/01/2024 9:[address] HEAD/BRAIN WO CON 10/27/2024 11:22 PM FINDINGS: Paranasal sinuses: Scattered sinus mucosal disease with some layering fluid in the right maxillary sinus. Orbital cavities: Orbits are normal. Globes are unremarkable. Teeth: There is dental amalgam which causes streak artifact and mildly limits evaluation of the oral cavity. Bones: See Soft tissues finding. Soft tissues: Significant soft tissue swelling over the left frontal calvarium without underlying calvarial injury identified. IMPRESSION: Significant soft tissue swelling over the left frontal calvarium without underlying calvarial injury identified.
--- NOTE | 2024-12-01 19:40 | CT_ITS ---
PROCEDURE INFORMATION: Exam: CT Thoracic Spine Without Contrast Exam date and time: 12/01/2024 9:53 PM Age: 64 years old Clinical indication: Injury or trauma; Fall; Blunt trauma (contusions or hematomas); Additional info: Trauma, critical injury suspected TECHNIQUE: Imaging protocol: Computed tomography of the thoracic spine without contrast. Radiation optimization: All CT scans at this facility use at least one of these dose optimization techniques: automated exposure control; mA and/or kV adjustment per patient size (includes targeted exams where dose is matched to clinical indication); or iterative reconstruction. COMPARISON: CT THORACIC SPINE WO CON 10/27/2024 11:27 PM FINDINGS: Bones/joints: No acute fracture. Stable mild compression fractures of T12 and L1, unchanged from 10/27/2024. Mild chronic degenerative changes without significant spinal stenosis. Soft tissues: Visualized paravertebral soft tissues demonstrate no acute abnormality. Lungs: Visualized portions of the lungs are grossly clear. IMPRESSION: 1. No acute abnormality. 2. Stable mild compression fractures of T12 and L1, unchanged from 10/27/2024.
--- NOTE | 2024-12-01 19:40 | CT_ITS ---
PROCEDURE INFORMATION: Exam: CTA Head With Contrast, Arteriography Exam date and time: 12/01/2024 10:01 PM Age: 64 years old Clinical indication: Injury or trauma; Fall; Blunt trauma; Head; Additional info: Trauma, critical injury suspected TECHNIQUE: Imaging protocol: Computed tomographic angiography of the head with contrast. Exam focused on the arteries. 3D rendering (Not supervised by radiologist): MIP and/or 3D reconstructed images were created by the technologist. Radiation optimization: All CT scans at this facility use at least one of these dose optimization techniques: automated exposure control; mA and/or kV adjustment per patient size (includes targeted exams where dose is matched to clinical indication); or iterative reconstruction. Contrast material: ISOUVE 370; Contrast volume: 80 ml; Contrast route: INTRAVENOUS (IV); COMPARISON: 1. CT ANGIO HEAD 12/01/2024 10:[address] HEAD/BRAIN WO CON 12/01/2024 9:[address] HEAD/BRAIN WO CON 10/27/2024 11:22 PM FINDINGS: ANTERIOR CIRCULATION: Right internal carotid artery: Intracranial segment is patent with no significant stenosis. No aneurysm. Right middle cerebral artery: No occlusion or significant stenosis. No aneurysm. Right anterior cerebral artery: No occlusion or significant stenosis. No aneurysm. Left internal carotid artery: Intracranial segment is patent with no significant stenosis. No aneurysm. Left middle cerebral artery: No occlusion or significant stenosis. No aneurysm. Left anterior cerebral artery: No occlusion or significant stenosis. No aneurysm. POSTERIOR CIRCULATION: Right vertebral artery: No occlusion or significant stenosis. No aneurysm. Left vertebral artery: No occlusion or significant stenosis. No aneurysm. Basilar artery: No occlusion or significant stenosis. No aneurysm. Right posterior cerebral artery: No occlusion or significant stenosis. No aneurysm. Left posterior cerebral artery: No occlusion or significant stenosis. No aneurysm. Brain: No definite mass, mass effect, or midline shift. Cerebral ventricles: No ventriculomegaly. Paranasal sinuses: There is [id number] scattered sinus mucosal disease. Teeth: There is dental amalgam which causes streak artifact and mildly limits evaluation of the oral cavity. Bones/joints: Unremarkable. No acute fracture. Soft tissues: Unremarkable. IMPRESSION: No acute intracranial vascular anomaly identified. No dissection or large vessel occlusion.
--- NOTE | 2024-12-01 19:40 | CT_ITS ---
PROCEDURE INFORMATION: Exam: CT Head Without Contrast Exam date and time: 12/01/2024 9:48 PM Age: 64 years old Clinical indication: Injury or trauma; Fall; Blunt trauma (contusions or hematomas); Additional info: Trauma, critical injury suspected TECHNIQUE: Imaging protocol: Computed tomography of the head without contrast. Radiation optimization: All CT scans at this facility use at least one of these dose optimization techniques: automated exposure control; mA and/or kV adjustment per patient size (includes targeted exams where dose is matched to clinical indication); or iterative reconstruction. COMPARISON: 1. CT HEAD/BRAIN WO CON 10/27/2024 11:[address] CERVICAL SPINE WO CON 10/27/2024 11:25 PM FINDINGS: Brain: The brain parenchyma appears unremarkable, with no signs of acute intracranial hemorrhage or significant mass effect. There is hypodensity in the subcortical and periventricular white matter which is technically nonspecific but most often related to chronic microvascular disease. Cerebral ventricles: Mild ventricular enlargement consistent with age-related cerebral atrophy is noted. Paranasal sinuses: Paranasal sinuses show age-appropriate mucosal thickening. Mastoid air cells: Visualized mastoid air cells are well aerated. Teeth: There is dental amalgam which causes streak artifact and mildly limits evaluation of the oral cavity. Bones: There is a large subcutaneous hematoma of the left frontal calvarium. There are no skull fractures or bony lesions. Soft tissues: See Bones finding. IMPRESSION: 1. There is a large subcutaneous hematoma of the left frontal calvarium. 2. Presumably age-related and chronic changes without acute intracranial abnormality.
--- NOTE | 2024-12-01 19:40 | CT_ITS ---
PROCEDURE INFORMATION: Exam: CT Cervical Spine Without Contrast Exam date and time: 12/01/2024 9:53 PM Age: 64 years old Clinical indication: Injury or trauma; Fall; Blunt trauma; Additional info: Trauma, critical injury suspected TECHNIQUE: Imaging protocol: Computed tomography of the cervical spine without contrast. Radiation optimization: All CT scans at this facility use at least one of these dose optimization techniques: automated exposure control; mA and/or kV adjustment per patient size (includes targeted exams where dose is matched to clinical indication); or iterative reconstruction. COMPARISON: 1. CT CERVICAL SPINE WO CON 10/27/2024 11:[address] FACIAL BONES WO CON 12/01/2024 9:[address] HEAD/BRAIN WO CON 12/01/2024 9:48 PM FINDINGS: Bones: There is straightening of the normal spinal curvature. There is diffuse osseous demineralization. The cervical spine shows relatively preserved alignment of the vertebral bodies with no evidence of acute fractures or dislocations. However, age-related degenerative changes are observed, including mild disc space narrowing and osteophyte formation at multiple levels. These findings are consistent with age related degenerative disease. Teeth: There is dental amalgam which causes streak artifact and mildly limits evaluation of the oral cavity. Lungs: Lung apices are normal. Soft tissues: Unremarkable. IMPRESSION: Multilevel degenerative change without acute injury identified.
--- NOTE | 2024-12-01 19:40 | CT_ITS ---
PROCEDURE INFORMATION: Exam: CTA Neck With Contrast Exam date and time: 12/01/2024 10:01 PM Age: 64 years old Clinical indication: Injury or trauma; Fall; Blunt trauma; Head; Additional info: Trauma, critical injury suspected TECHNIQUE: Imaging protocol: Computed tomographic angiography of the neck with contrast. Exam focused on the cervical segments of the vasculature. 3D rendering (Not supervised by radiologist): MIP and/or 3D reconstructed images were created by the technologist. Radiation optimization: All CT scans at this facility use at least one of these dose optimization techniques: automated exposure control; mA and/or kV adjustment per patient size (includes targeted exams where dose is matched to clinical indication); or iterative reconstruction. Contrast material: ISOUVE 370; Contrast volume: 80 ml; Contrast route: INTRAVENOUS (IV); COMPARISON: 1. CT CERVICAL SPINE WO CON 12/01/2024 9:[address] CERVICAL SPINE WO CON 10/27/2024 11:[address] ANGIO HEAD 12/01/2024 10:01 PM FINDINGS: Right common carotid artery: There is atherosclerotic disease of the right carotid bulb without significant stenosis of the internal carotid artery. Right internal carotid artery: No stenosis of the extracranial segment. No dissection or occlusion. Right external carotid artery: No occlusion or stenosis of the origin. Left common carotid artery: There is atherosclerotic disease of the left carotid bulb without significant stenosis of the internal carotid artery. Left internal carotid artery: No stenosis of the extracranial segment. No dissection or occlusion. Left external carotid artery: No occlusion or stenosis of the origin. Right vertebral artery: No stenosis. No dissection or occlusion. Left vertebral artery: No stenosis. No dissection or occlusion. Aorta: There is atherosclerotic disease of the visualized aorta and its major branch vessels. Teeth: There is dental amalgam which causes streak artifact and mildly limits evaluation of the oral cavity. Soft tissues: Normal. No significant soft tissue swelling. Bones/joints: There is diffuse degenerative disease of the visualized osseous structures. Lungs: Scattered areas of bronchial wall thickening which are likely chronic inflammatory. A few areas of subpleural reticulation are noted, nonspecific. Other findings: There is a slight irregularity of the posterior aspect of the internal carotid artery seen on image 76 series 3), on sagittal imaging (image 94 series 6) as well as thin section images, this appears to correlate with a small atherosclerotic calcification. Motion artifact mildly limits evaluation. IMPRESSION: Atherosclerotic disease of the carotid bulbs without significant stenosis of the internal carotid arteries. No acute injury identified. REFERENCES: NASCET CRITERIA. The degree of stenosis in the cervical segment of the internal carotid artery is based on NASCET criteria. Normal is no stenosis. Mild is less than 50% stenosis. Moderate is 50-69% stenosis. Severe is 70% to 99% stenosis. Total occlusion is no detectable patent lumen.
--- NOTE | 2024-12-01 19:40 | CT_ITS ---
PROCEDURE INFORMATION: Exam: CT Pelvis Without Contrast, Skeleton Exam date and time: 12/01/2024 9:57 PM Age: 64 years old Clinical indication: Injury or trauma; Fall; Blunt trauma (contusions or hematomas); Bilateral; Pelvic region; Additional info: Trauma, critical injury suspected TECHNIQUE: Imaging protocol: Computed tomography of the pelvis without contrast. Exam focused on the skeleton. Radiation optimization: All CT scans at this facility use at least one of these dose optimization techniques: automated exposure control; mA and/or kV adjustment per patient size (includes targeted exams where dose is matched to clinical indication); or iterative reconstruction. COMPARISON: 1. CT ABDOMEN PELVIS WO CON 10/27/2024 11:[address] LUMBAR SPINE WO CON 12/01/2024 9:53 PM FINDINGS: Intestine: Visualized bowel loops in the pelvis demonstrate no acute abnormality. Appendix: Normal appendix. Intraperitoneal space: No free fluid. Reproductive: Uterus and adnexal structures are grossly unremarkable. Urinary bladder: Normal urinary bladder. Bones/joints: No acute fracture or dislocation. Stable severe degenerative changes in the visualized lower lumbar spine. Stable mild degenerative changes in both hips. Soft tissues: No definite soft tissue hematoma. Stable small fat containing midline ventral and umbilical hernias. Lymph nodes: No adenopathy. IMPRESSION: No acute findings.
--- NOTE | 2024-12-01 19:40 | CT_ITS ---
PROCEDURE INFORMATION: Exam: CT Lumbar Spine Without Contrast Exam date and time: 12/01/2024 9:53 PM Age: 64 years old Clinical indication: Injury or trauma; Fall; Blunt trauma (contusions or hematomas); Additional info: Trauma, critical injury suspected TECHNIQUE: Imaging protocol: Computed tomography of the lumbar spine without contrast. Radiation optimization: All CT scans at this facility use at least one of these dose optimization techniques: automated exposure control; mA and/or kV adjustment per patient size (includes targeted exams where dose is matched to clinical indication); or iterative reconstruction. COMPARISON: CT LUMBAR SPINE WO CON 10/27/2024 11:30 PM FINDINGS: Bones/joints: Mild lumbar dextroscoliosis. No acute fracture or subluxation. Stable mild compression fractures of T12 and L1. Severe multilevel degenerative changes without severe spinal stenosis. Soft tissues: Visualized paravertebral soft tissues demonstrate no acute abnormality. IMPRESSION: 1. No acute findings. 2. Stable mild compression fractures of T12 and L1, unchanged from 10/27/2024.
[2024-12-01 20:08] LABS: Eosinophils # 0.1 K/mm3 (0.0-0.4); Eosinophils % 0.9 % (0.1-12.0); Hematocrit 39.8 % (37.0-47.0); Hemoglobin 13.1 g/dL (12.2-16.2); Lymphocytes # 1.3 K/mm3 (0.7-4.5); Lymphocytes % 13.4 % (10-50); Mean Corpuscular HGB Conc 32.9 g/dL (31.8-35.4); Mean Corpuscular Hemoglobin 27.6 pg (27.0-31.2); Mean Corpuscular Volume 83.8 fl (81-99); Neutrophils # 6.8 K/mm3 (1.8-7.8); Neutrophils % 69.2 % (37.0-80.0); Platelet Count 387 K/mm3 (142-424); Red Blood Count 4.75 M/mm3 (4.20-5.40); White Blood Count 9.9 K/mm3 (4.8-10.8)
[2024-12-01] MEDS: ONDANSETRON 4MG/2ML VIAL 4 MG IV (20:08)
[2024-12-01] MEDS: LACTATED RINGERS 1000ML 1,000 ML 999 ML IV (20:09)
[2024-12-01 20:13] LABS: Alanine Aminotransferase 22 U/L (12-78); Albumin/Globulin Ratio 1.3 (1.1-1.8); Alkaline Phosphatase 62 U/L (38-126); Anion Gap 14.2 mEq/L (5-15); Aspartate Amino Transferase 32 U/L (14-36); Basophils # 0.3 K/mm3 (0-0.2); Basophils % 2.5 % (0.1-2.0); Bilirubin,Total 0.3 mg/dl (0.2-1.3); Blood Urea Nitrogen 22 mg/dl (7-17); Calcium 9.2 mg/dl (8.4-10.2); Carbon Dioxide 24 mmol/L (22.0-30.0); Chloride 106 mmol/L (98-107); Estimated Glomerular Filt Rate 41 ml/min (>60); GFR (African American) 50 ML/MIN (>60); Globulin 3.1 g/dL (1.3-3.2); Glucose 111 mg/dl (74-100); Magnesium 1.7 mg/dl (1.6-2.3); Mean Platelet Volume 11.4 fl (7.4-10.4); Monocytes # 1.3 K/mm3 (0.1-1.0); Monocytes % 13.4 % (1.7-9.3); Potassium 4.2 mmoL/L (3.5-5.1); Sodium 140 mmol/L (136-145); Total Protein,Serum 7.1 g/dl (6.3-8.2)
[2024-12-01] MEDS: LORazepam 2MG/ML VIAL 0.5 MG IV (21:12)
[2024-12-01] MEDS: SODIUM CHLORIDE 0.9% 10ML SYR (RAD ONLY) 10 ML IV (21:48)
[2024-12-01] MEDS: SODIUM CHLORIDE 0.9% 10ML VIAL 10 ML IV (21:48)
[2024-12-01] MEDS: 0.9 % SODIUM CHLORIDE 50 ML VIAL 40 ML IV (21:48)
[2024-12-01] MEDS: IOPAMIDOL-370 (76%);100ML BOTTLE 80 ML IV (21:49)
[2024-12-01 23:16] VITALS: BP 147/67; PULSE 72; RESP 20; TEMP 36.6; O2SAT 98
== END 2024-12-01 23:53 ==
PROVIDERS: Physician Assistant; Emergency Provider Emergency Medicine; PCP Family Medicine
DX: S00.83XA Contusion of other part of head, initial encounter (principal); R22.0 Localized swelling, mass and lump, head; W01.0XXA Fall on same level from slipping, tripping and stumbling without subsequent striking against object, initial encounter; Z91.81 History of falling; Y93.89 Activity, other specified; Y92.129 Unspecified place in nursing home as the place of occurrence of the external cause
CPT/HCPCS: 70450; 70486; 70496; 70498; 72125; 72128; 72131; 72192; 80053; 83735; 85025; 96361; 96374; 96375; 99285; 99291; J2060; J2405; J7120; Q9967

== ENCOUNTER 2025-05-29 23:04 | Emergency (ER) | payer MEDICARE, SELFPAY ==
--- NOTE | 2025-05-29 23:05 | CT_ITS ---
PROCEDURE INFORMATION: Exam: CT Head Without Contrast Exam date and time: 05/29/2025 11:26 PM Age: 65 years old Clinical indication: Injury or trauma; Fall; Other: Pain TECHNIQUE: Imaging protocol: Computed tomography of the head without contrast. Radiation optimization: All CT scans at this facility use at least one of these dose optimization techniques: automated exposure control; mA and/or kV adjustment per patient size (includes targeted exams where dose is matched to clinical indication); or iterative reconstruction. COMPARISON: CT ANGIO HEAD 12/01/2024 10:01 PM FINDINGS: Brain: No acute intracranial hemorrhage, midline shift, or mass effect. Diffuse brain parenchymal volume loss. Similar pattern of hypodensities within the cerebral white matter. Cerebral ventricles: Stable ventricular prominence. Paranasal sinuses: Minimal bilateral maxillary and right ethmoid sinus mucosal thickening. Mastoid air cells: Visualized mastoid air cells are well aerated. Bones: Unremarkable. No acute fracture. Soft tissues: Mild right forehead soft tissue swelling. IMPRESSION: 1. No acute intracranial findings. 2. Mild right forehead soft tissue swelling. No calvarial fracture.
--- NOTE | 2025-05-29 23:05 | XR_ITS ---
PROCEDURE INFORMATION: Exam: XR Chest Exam date and time: 05/29/2025 11:17 PM Age: 65 years old Clinical indication: Injury or trauma; Fall; Other: Pain TECHNIQUE: Imaging protocol: Radiologic exam of the chest. Views: 1 view. COMPARISON: CT CHEST WO CON 10/27/2024 11:35 PM FINDINGS: Lungs: Unremarkable. No consolidation. Pleural spaces: Unremarkable. No pleural effusion. No pneumothorax. Heart/Mediastinum: Unremarkable. No cardiomegaly. Vasculature: Unremarkable. Bones/joints: Unremarkable. IMPRESSION: No acute findings.
--- NOTE | 2025-05-29 23:05 | CT_ITS ---
PROCEDURE INFORMATION: Exam: CT Cervical Spine Without Contrast Exam date and time: 05/29/2025 11:28 PM Age: 65 years old Clinical indication: Injury or trauma; Fall TECHNIQUE: Imaging protocol: Computed tomography of the cervical spine without contrast. Radiation optimization: All CT scans at this facility use at least one of these dose optimization techniques: automated exposure control; mA and/or kV adjustment per patient size (includes targeted exams where dose is matched to clinical indication); or iterative reconstruction. COMPARISON: CT CERVICAL SPINE WO CON 12/01/2024 9:53 PM FINDINGS: Bones: Cervical vertebrae normal in height. No acute fracture. Reversal of normal cervical lordosis. Grade 1 anterolisthesis T1 on T2 and T2 on T3. Maintained craniocervical junction. Multilevel degenerative changes. Varying degrees of neural foraminal narrowing. No severe spinal canal stenosis. Lungs: Lung apices are normal. Vasculature: Bilateral carotid artery calcifications. Soft tissues: Unremarkable. IMPRESSION: No acute osseous findings.
--- NOTE | 2025-05-29 23:05 | XR_ITS ---
PROCEDURE INFORMATION: Exam: XR Pelvis Exam date and time: 05/29/2025 11:17 PM Age: 65 years old Clinical indication: Injury or trauma; Fall; Other: Pain TECHNIQUE: Imaging protocol: Radiologic exam of the pelvis. Views: 1 or 2 view. COMPARISON: CT BONY PELVIS 12/01/2024 9:57 PM FINDINGS: Bones/joints: The pelvis and hips are intact. There is no acute fracture. Moderate degenerative changes of the lower lumbar spine are noted. Soft tissues: Unremarkable. IMPRESSION: No acute findings.
--- NOTE | 2025-05-29 23:07 | [facility].EDGENADL ---
Discharge Plan Disposition Patient Disposition: Home, Self-Care Prescriptions Prescriptions: No Action acetaminophen 500 mg tablet 500 mg PO Q6H PRN mesalamine 400 mg capsule (with del rel tablets) 800 mg PO TID atorvastatin 20 mg tablet 20 mg PO QHS divalproex [Depakote Sprinkles] 125 mg capsule, delayed rel sprinkle 250 mg PO TID fluoxetine 10 mg capsule 10 mg PO DAILY aripiprazole [Abilify] 2 mg tablet 2 mg PO QAM lidocaine [Aspercreme (lidocaine)] 4 % adhesive patch,medicated 2 patch topical DAILY Qty: 60 0RF melatonin 5 mg capsule 5 mg PO QHS Qty: 90 0RF memantine 10 mg tablet 10 mg PO BID Qty: 180 3RF propranolol 10 mg tablet 10 mg PO TID Qty: 270 3RF Referrals Follow up/Referrals: Provider,Referral, MD [Primary Care Provider, Medical] - See instructions Activity Restrictions/Add. Instructions Additional Instructions/Restrictions: No evidence of traumatic injury on CT scans and x-rays. Patient had mild hypoglycemia that stabilized after interventions and monitoring. Clinical Impressions Clinical Impression: Traumatic hematoma of forehead, Hypoglycemia Fall Qualifiers: Encounter type: initial encounter Qualified Code(s): W19.XXXA - Unspecified fall, initial encounter Print Language Print Language: Mongolian Discharge ED Provider: Collin Segovia Adult HPI General Chief complaint: Fall Stated complaint: fall Time Seen by Provider: 05/29/25 23:07 History of Present Illness HPI narrative: 65-year-old female with history of severe dementia, diabetes, chronic kidney disease, residential patient who presents after a fall. She is nonverbal and unable to provide a story. Her bed was approximately 1 foot off the ground. She was found on the ground next to the bed with a hematoma on her forehead. No other obvious injuries noted. Related Data Home Medications ?Medication ?Instructions ?Recorded ?Confirmed divalproex 125 mg capsule,delayed 250 mg PO TID 01/09/25 05/02/25 release sprinkle (Depakote Sprinkles) fluoxetine 10 mg capsule 10 mg PO DAILY 02/21/25 05/02/25 acetaminophen 500 mg tablet 500 mg PO Q6H PRN 03/27/25 05/02/25 aripiprazole 2 mg tablet (Abilify) 2 mg PO QAM 03/27/25 05/02/25 atorvastatin 20 mg tablet 20 mg PO QHS 03/27/25 05/02/25 mesalamine 400 mg capsule (with 800 mg PO TID 03/27/25 05/02/25 delayed release tablets inside) Previous Rx's ?Medication ?Instructions ?Recorded lidocaine 4 % topical patch 2 patch topical DAILY #60 ea 07/20/24 (Aspercreme (lidocaine)) melatonin 5 mg capsule 5 mg PO QHS #90 caps 07/20/24 memantine 10 mg tablet 10 mg PO BID #180 tabs 07/20/24 propranolol 10 mg tablet 10 mg PO TID #270 tabs 07/20/24 Allergies Allergy/AdvReac Type Severity Reaction Status Date / Time iodine Allergy Mild Verified 05/02/25 09:16 Sulfa (Sulfonamide Allergy Mild Verified 05/02/25 09:16 Antibiotics) [facility] Disclaimer: The information contained in this section may have been updated after the patient was seen, as this information can be updated by other users. Medical History Chronic kidney disease Unable to care for self Impaired functional mobility, balance, and endurance Abdominal aortic aneurysm (AAA) History of vaginal delivery x 2 Abnormal colonoscopy July 2022, polyps x 3 Benign colonic polyp Dementia Seizure disorder Crohn's disease Diabetes mellitus, type II Hyperlipidemia Hypertension Surgical History History of total knee replacement right History of cholecystectomy Social History Smoking Status: Never smoker alcohol intake: current substance use type: denies use current occupational status: retired Travel in the last 8 weeks?: None marital status: Other Medical History Have you received the Pneumonia Vaccine: Yes (08/02/18) ROS Obtained: Yes All systems reviewed & no additional complaints except as documented Physical Exam General General appearance: alert and in no apparent distress Head Head exam: normocephalic and other (Small forehead hematoma) Eye Eye exam: Present normal appearance, PERRL and EOMI ENT ENT exam: Present normal oropharynx and normal external ear exam Neck Neck exam: Present normal inspection and full ROM Chest Chest inspection: Present normal inspection and symmetric chest wall rise; Absent tenderness Respiratory Respiratory exam: Present normal lung sounds bilaterally; Absent respiratory distress Cardiovascular Cardiovascular exam: Present regular rate and normal rhythm Abdominal Exam Abdominal exam: Present soft; Absent distention, tenderness or guarding Extremities Exam Extremities exam: Present normal inspection; Absent edema or joint swelling Back Exam Back exam: Present normal inspection; Absent tenderness Neurological Exam Neurological exam: Present alert and other (Interactive but nonverbal, moving all extremities) Psychiatric Psychiatric exam: Present normal mood Skin Skin exam: Present warm, dry and normal color Lymphatic Lymphatic Findings: no adenopathy Medical Decision Making Medical Records Medical records reviewed: Yes I reviewed the patient's medical records. Screening: Per USPSTF and CDC recommendations, given the prevalence of disease in our region, it is our hospital?s policy to screen for HIV and viral Hepatitis for all patients aged 18 and over and those with ongoing risk factors. Jonnathan Inquiry Pt receiving controlled substance: No Jonnathan was queried for this patient: No Vital Signs: 05/29/25 23:10 05/30/25 00:24 05/30/25 00:30 Temperature 98.5 F Temperature Source Axillary Pulse Rate 74 52 L Pulse Rate [Right] 58 L Respiratory Rate 18 Blood Pressure 160/67 H 148/66 H Blood Pressure [Right Arm] 167/78 H Blood Pressure Mean [Right Arm] 107 Blood Pressure Source [Right Arm] Automatic Cuff Blood Pressure Position [Right Arm] Sitting 02 Sat by Pulse Oximetry 98 98 98 Oxygen Delivery Method Room Air 05/30/25 01:00 05/30/25 02:04 Temperature Temperature Source Pulse Rate 62 52 L Pulse Rate [Right] Respiratory Rate Blood Pressure 146/82 H 178/83 H Blood Pressure [Right Arm] Blood Pressure Mean [Right Arm] Blood Pressure Source [Right Arm] Blood Pressure Position [Right Arm] 02 Sat by Pulse Oximetry 99 98 Oxygen Delivery Method Lab Data Lab results reviewed: Yes I reviewed the patient's lab results. Lab Results 05/30/25 01:40: WBC 12.5 H, RBC 4.99, Hgb 14.4, Hct 44.4, MCV 89.0, MCH 28.9, MCHC 32.4, RDW 16.0, Plt Count 310, MPV 10.9 H, Neut % (Auto) 63.1, Lymph % (Auto) 23.5, White % (Auto) 7.9, Eos % (Auto) 3.1, Baso % (Auto) 2.2 H, Neut # (Auto) 7.9 H, Lymph # (Auto) 2.9, White # (Auto) 1.0, Eos # (Auto) 0.4, Baso # (Auto) 0.3 H 05/30/25 02:02: Sodium 141, Potassium 4.0, Chloride 106, Carbon Dioxide 31 H, Anion Gap 8.0, BUN 20 H, Creatinine 0.90, Estimated Creat Clear 63, Estimated GFR 63, Est GFR ( Amer) 76, Glucose 116 H, Calcium 9.8, Magnesium 2.2, Total Bilirubin 0.7, AST 31, ALT 35, Alkaline Phosphatase 76, Total Creatine Kinase 59, Total Protein 7.6, Albumin 4.2, Globulin 3.4 H, Albumin/Globulin Ratio 1.2 05/30/25 02:18: Urine Color Yellow, Urine Appearance Clear, Urine pH 7.0, Ur Specific [place] 1.015, Urine Protein Negative, Urine Glucose (UA) Negative, Urine Ketones Negative, Urine Blood Negative, Urine Nitrate Negative, Urine Bilirubin Negative, Urine Urobilinogen 0.2, Ur Leukocyte Esterase Negative, Urine RBC None, Urine WBC Occasional, Ur Squamous Epith Cells 3-5, Urine Bacteria 1+ 05/30/25 01:40 05/30/25 02:02 Orders (Tests/Meds): ED MEDICATIONS Generic Name Dose Route Start Last Admin Trade Name Freq PRN Reason Stop Dose Admin Dextrose/Water 500 mls @ 1,000 mls/hr 05/29/25 23:45 Dextrose 10% In Water 500ml IV 06/28/25 23:44 .Q30M KARISSA Discontinued Medications Generic Name Dose Route Start Last Admin Trade Name Freq PRN Reason Stop Dose Admin Dextrose 25 ml 05/30/25 00:30 05/30/25 00:38 Dextrose 50% 50ml Syringe (Crash Cart) IVP 05/30/25 00:31 25 ml ONCE ONE Administration ORDERS Category Date Time Status CT cervical spine wo con Stat Cat Scan 05/29/25 23:[address] head/brain wo con Stat Cat Scan 05/29/25 23:05 Completed CXR --portable [XR chest portable] Stat Exams 05/29/25 23:05 Completed POCUS Point of Care (ER Only) Stat Exams 05/30/25 00:50 Ordered Pelvis XR 1-2 views [XR pelvis 1-2V] Stat Exams 05/29/25 23:05 Completed CBC w/Auto Diff [Complete Blood Count Auto Diff] Stat Lab 05/29/25 23:37 Completed CK [Creatine Kinase] Stat Lab 05/29/25 23:37 Completed CMP [Comprehensive Metabolic Panel] Stat Lab 05/29/25 23:37 Completed MAG [Magnesium] Stat Lab 05/29/25 23:37 Completed UA [Urinalysis and Microscopic] Stat Lab 05/30/25 02:18 Completed Blood Culture Stat Micro 05/30/25 02:02 Received Medical Decision Narrative: 65-year-old female with history of of severe dementia, nonverbal at baseline, hypertension hyperlipidemia chronic kidney disease diabetes presents for fall out of bed. Patient bed is approximately 1 foot off the ground. History was obtained via interactive discussion with EMS. On arrival, patient is afebrile, HD stable, satting appropriately on room air, alert and interactive but nonverbal,, moving all extremities spontaneously. Full physical exam performed and significant for right forehead hematoma, no other trauma noted. Differential includes but is not limited to intracranial trauma to thoracic trauma intra-abdominal trauma spine trauma extremity trauma. Patient was given juice and 500 mL of D10 for blood sugar of 57. For symptomatic management and correction of underlying abnormalities. Workup initiated including CBC CMP mag CK CT head, CT C-spine, radiograph of the chest and pelvis. On re-evaluation, patient [remains afebrile, HD stable.] Laboratory workup independently interpreted by me and significant for no significant laboratory abnormalities. Glucose has remained stable on multiple checks after intervention. Imaging independently interpreted by me and significant for no evidence of intracranial bleeding, cervical fracture, pneumothorax or pelvic fracture. See radiology read for full review of final results. Given patient history, exam and workup, patient's presentation most likely represents fall with forehead hematoma. No significant traumatic injuries noted. Patient discharged back to nursing facility in stable condition.. Procedures Risk/Benefits of Procedure(s) Were Explained: Yes Critical Care Critical Care Time Critical Care Time: No
--- OUTSIDE RECORDS SUMMARY | 2025-05-29 23:09 | XMS_ITS | Clinical Summary ---
Author Organization [facility] Address [address] [place] [id number] Care Team Providers Care Manager Outreach Name Role Phone None, Physician Primary Care Provider Unavailabl e Allergies Active Allergy Reactions Criticality Noted Date Comments Iodine 02/03/2025 Sulfa Antibiotics 02/03/2025 Medications FLUoxetine (PROZAC) 10 MG capsule Take 10 mg by mouth daily. Active memantine (NAMENDA) 10 MG tablet Take 10 mg by mouth 2 (two) times daily. Active fluconazole (DIFLUCAN) 100 MG tablet Take 100 mg by mouth daily. Active LORazepam (ATIVAN) 0.5 MG tablet Take 0.5 mg by mouth every 6 (six) hours as needed for Anxiety. Active ARIPiprazole (ABILIFY) 2 MG tablet Take 2 mg by mouth daily. Active QUEtiapine (SEROQUEL) 25 MG tablet Take 25 mg by mouth nightly. Active olmesartan-hydro CHLOROthiazide (BENICAR HCT) 40-12.5 MG Take 1 tablet by mouth daily. Active mesalamine (LIALDA) 1.2 g EC tablet Take 1,200 mg by mouth daily with breakfast. Active melatonin 3 MG TABS tablet Take by mouth nightly. Active donepezil (ARICEPT) 10 MG tablet Take 10 mg by mouth nightly. Active divalproex (DEPAKOTE SPRINKLE) 125 MG capsule Take 125 mg by mouth 2 (two) times daily. Active atorvastatin (LIPITOR) 20 MG tablet Take 20 mg by mouth daily. Active Social History Tobacco Use Types Packs/Day Years Used Date Smoking Tobacco: Never Assessed Comments Unknown Sex and Gender Information Value Date Recorded Sex Assigned at Not on file Legal Sex Female 10:53 AM EDT Gender Identity Not on file Sexual Orientation Not on file Last Filed Vital Signs Vital Sign Reading Time Taken Comments Blood Pressure 127/60 02/03/2025 11:00 AM EDT Pulse 67 02/03/2025 11:00 AM EDT Temperature - - Respiratory Rate - - Oxygen Saturation 94% 02/03/2025 11:00 AM EDT Inhaled Oxygen Concentration - - Weight - - Height - - Body Mass Index - - Plan of Treatment Health Maintenance Due Date Last Done Comments Breast Cancer Screening 1959 CT Colonography 1959 Colonoscopy 1959 Colorectal Cancer Screening 1959 FIT-DNA 1959 FIT 1959 FOBT 1959 Hepatitis C Screening 1960 Medicare Annual Wellness Visit (AWV) 1959 Sigmoidoscopy 1959 Tdap/Td Vaccine >11 yo (1 - Tdap) 1978 Shingles (Shingrix) (1 of 2) 2009 Pneumococcal Vaccines >50 yo (2 of 2 - PCV) 08/02/2019 08/02/2018 Osteoporosis Screening 02/08/2024 Annual SDOH Screening 11/08/2024 Influenza Vaccine (#1) 2025 3, 08/04/2021, 07/30/2020, Additional history exists Haemophilus Influenzae Type B (Hib) Vaccine Aged Out No longer eligible based on patient's age to complete this topic Hepatitis A (HepA) Vaccine Aged Out N o longer eligible based on patient's age to complete this topic Hepatitis B (HepB) Vaccine Aged Out N o longer eligible based on patient's age to complete this topic Meningococcal ACWY Aged Out No longer eligible based on patient's age to complete this topic Polio (IPV) Aged Out No longer eligi ble based on patient's age to complete this topic Rotavirus (RV) Vaccine Aged Out No lo nger eligible based on patient's age to complete this topic Insurance [facility] MELIZA KENDRICK OLEGARIO Leo [id number] [place] [address] [facility] Address: [address] [address] [place] [address] Care Teams Manager Outreach Relationship Specialty Start Date End Date None, Physician PCP - General 02/03/25
--- OUTSIDE RECORDS SUMMARY | 2025-05-29 23:09 | XMS_ITS | Clinical Summary ---
Author Organization [facility] Address [address] [place] [address] Phone Care Team Providers Care Global Supply Chain Vice President Name Role Phone Unavailable Primary Care Provider Unavailabl e Allergies No known active allergies Medications * This document contains information received from the source organization and may not represent a complete record from that organization. LORazepam (ATIVAN) 0.5 mg Oral Tablet Take 1 Tablet by mouth 3 times daily. 90 Tablet 3 09/13/2024 Active Active Problems No known active problems Medical History Medical History Date Comments AAA (abdominal aortic aneurysm) Seizures (HCC) Diabetes mellitus (HCC) Hyperlipidemia Hypertension Crohn's disease (HCC) Social History Tobacco Use Types Packs/Day Years Used Date Smoking Tobacco: Never Smokeless Tobacco: Never Tobacco Cessation:Counseling Given: Not Answered Alcohol Use Standard Drinks/Week Comments Not Currently 0 (1 standard drink = 0.6 oz pur e alcohol) Comments Unknown Sex and Gender Information Value Date Recorded Sex Assigned at Not on file Legal Sex Female 8:53 AM EDT Gender Identity Not on file Sexual Orientation Not on file Obstetrics History Plan of Treatment Health Maintenance Due Date Last Done Comments Wellness Exam Medicare 1962 Hepatitis C Screening 1977 DTaP/TDaP/Td (1 - Tdap) 1978 Breast Cancer Screening 1999 Cologuard 02/08/2004 Colon Cancer Screening 02/08/2004 Colonoscopy 02/08/2004 FIT 02/08/2004 Sigmoidoscopy 02/08/2004 Virtual Colonography 02/08/2004 Pneumococcal Vaccine 50+ (1 of 1 - PCV) 2009 Zoster (1 of 2) 2009 Bone Density Screening 02/08/2024 COVID-19 Vaccine (2023-2 5 season) 2024 Influenza Vaccine (#1) 2025 Hepatitis B Vaccine Aged Out No longe r eligible based on patient's age to complete this topic Meningococcal B Vaccine Aged Out No l onger eligible based on patient's age to complete this topic Insurance OLEGARIO Richard [id number] MEDICARE [place] PART A AND B
[2025-05-29 23:10] VITALS: BP 167/78; PULSE 58; RESP 18; TEMP 36.9; O2SAT 98; BMI 26.6
--- NOTE | 2025-05-29 23:18 | PC.NURSE ---
2312 Luca nobles notified of FSBS 57. Treated with orange juice per provider order.
[2025-05-30 00:24] VITALS: BP 160/67; PULSE 74; O2SAT 98
[2025-05-30 00:30] VITALS: BP 148/66; PULSE 52; O2SAT 98
--- NOTE | 2025-05-30 00:30 | PC.NURSE ---
0019- FSBS 67. / amp D50 admin
[2025-05-30] MEDS: DEXTROSE 50% 50ML SYRINGE (CRASH CART) 25 ML IVP (00:38)
--- NOTE | 2025-05-30 00:40 | PC.NURSE ---
FS 178
[2025-05-30 01:00] VITALS: BP 146/82; PULSE 62; O2SAT 99
--- NOTE | 2025-05-30 01:47 | PC.NURSE ---
Dianne, quality assurance advisor in room to attempt to collect blood. Multiple attempts have been made by RNs to collect blood
[2025-05-30 02:03] LABS: Hematocrit 44.4 % (37.0-47.0); Hemoglobin 14.4 g/dL (12.2-16.2); Immature Granulocytes % 0.2 %; Mean Corpuscular HGB Conc 32.4 g/dL (31.8-35.4); Mean Corpuscular Hemoglobin 28.9 pg (27.0-31.2); Mean Corpuscular Volume 89.0 fl (81-99); Nucleated Red Blood Cells % 0 %; Platelet Count 310 K/mm3 (142-424); Red Blood Count 4.99 M/mm3 (4.20-5.40); Red Cell Distribution Width-SD 51.8 fL; White Blood Count 12.5 K/mm3 (4.8-10.8)
[2025-05-30 02:04] VITALS: BP 178/83; PULSE 52; O2SAT 98
[2025-05-30 02:20] LABS: Albumin Level 4.2 g/dl (3.5-5.0); Chloride 106 mmol/L (98-107); Potassium 4.0 mmoL/L (3.5-5.1); Sodium 141 mmol/L (136-145)
[2025-05-30 02:22] LABS: Alanine Aminotransferase 35 U/L (12-78); Anion Gap 8.0 mEq/L (5-15); Aspartate Amino Transferase 31 U/L (14-36); Blood Urea Nitrogen 20 mg/dl (7-17); Carbon Dioxide 31 mmol/L (22.0-30.0); Creatinine Clearance Estimated 63 mL/min (50-200); Creatinine,Serum 0.90 mg/dl (0.52-1.04); Estimated Glomerular Filt Rate 63 ml/min (>60); GFR (African American) 76 ML/MIN (>60)
[2025-05-30 02:22] LABS: Microscopic, Urine URINE MICROSCOPIC (MICROSCOPIC)
[2025-05-30 02:23] LABS: Albumin/Globulin Ratio 1.2 (1.1-1.8); Alkaline Phosphatase 76 U/L (38-126); Bilirubin,Total 0.7 mg/dl (0.2-1.3); Calcium 9.8 mg/dl (8.4-10.2); Creatine Kinase 59 U/L (30-135); Globulin 3.4 g/dL (1.3-3.2); Glucose 116 mg/dl (74-100); Magnesium 2.2 mg/dl (1.6-2.3); Total Protein,Serum 7.6 g/dl (6.3-8.2)
[2025-05-30 02:24] LABS: Bilirubin,Urine Negative (Negative); Color,Urine YELLOW (Yellow); Glucose,Urine (UA) Negative (Negative); Ketones,Urine Negative (Negative); Leukocyte Esterase,Urine Negative (Negative); PH,Urine 7.0 (5.0-8.5); Protein,Urine Negative (Negative); Specific Gravity, Urine 1.015 (1.005-1.030); Urobilinogen,Urine 0.2 EU/dl (0.2)
--- NOTE | 2025-05-30 02:37 | PC.NURSE ---
report called to Alyson Marsh.
[2025-05-30 02:40] LABS: Bacteria,Urine 1+ /lpf; WBC,Urine Occasional #/hpf (0-3)
--- NOTE | 2025-05-30 02:53 | PC.NURSE ---
[facility] for transport back to [facility]
[2025-05-30 03:22] VITALS: BP 185/85; PULSE 58; RESP 18; TEMP 36.4; O2SAT 98
== END 2025-05-30 03:33 | disposition home or self-care (01) ==
PROVIDERS: Emergency Provider Emergency Medicine
DX: S00.83XA Contusion of other part of head, initial encounter (principal); W19.XXXA Unspecified fall, initial encounter; E16.2 Hypoglycemia, unspecified; E11.9 Type 2 diabetes mellitus without complications; E78.5 Hyperlipidemia, unspecified; I10 Essential (primary) hypertension
CPT/HCPCS: 70450; 71045; 72125; 72170; 80053; 81001; 82550; 83735; 85025; 87040; 96374; 96375; 99285

== ENCOUNTER 2025-06-13 07:42 | Emergency (ER) | payer MEDICARE, SELFPAY ==
[2025-06-13] VITALS (16 sets, daily range): BP systolic 97–231; BP diastolic 68–189; PULSE 54–72; RESP 11–18; TEMP 35.8–36.4; O2SAT 93–99; BMI 29.7
--- NOTE | 2025-06-13 07:41 | HMH.EDGENADL ---
Discharge Plan Disposition Patient Disposition: Home, Self-Care Prescriptions Prescriptions: No Action acetaminophen 500 mg tablet 500 mg PO Q6H PRN mesalamine 400 mg capsule (with del rel tablets) 800 mg PO TID atorvastatin 20 mg tablet 20 mg PO QHS divalproex [Depakote Sprinkles] 125 mg capsule, delayed rel sprinkle 250 mg PO TID fluoxetine 10 mg capsule 10 mg PO DAILY aripiprazole [Abilify] 2 mg tablet 2 mg PO QAM lidocaine [Aspercreme (lidocaine)] 4 % adhesive patch,medicated 2 patch topical DAILY Qty: 60 0RF melatonin 5 mg capsule 5 mg PO QHS Qty: 90 0RF memantine 10 mg tablet 10 mg PO BID Qty: 180 3RF propranolol 10 mg tablet 10 mg PO TID Qty: 270 3RF Referrals Follow up/Referrals: Provider,Referral, MD [Primary Care Provider, Medical] - See instructions Clinical Impressions Clinical Impression: Seizure Instructions Patient Instructions: DI for Seizure Disorder -- Adult, DI for Seizure (Not Epilepsy/Seizure Disorder), DI for Seizure Disorder -- Child Print Language Print Language: Latvian Discharge ED Provider: Héctor Esteban General Adult HPI General Chief complaint: Seizure Stated complaint: Seizures Time Seen by Provider: 06/13/25 07:45 Mode of Arrival: EMS History of Present Illness HPI narrative: Mrs. Josue is a 65-year-old female with past medical history of epilepsy who presents to the emergency department with complaints of a breakthrough seizure. History is provided by EMS. EMS reports that at approximately 6:30 AM the patient had a generalized tonic-clonic seizure that lasted for less than 1 minute. This is described as her normal seizure size neurology. When EMS arrived on scene the patient was hemodynamically stable and at her baseline per caregivers at the nursing facility. On arrival to the emergency department patient is hemodynamically stable, afebrile, not tachycardic, normotensive. She is minimally reactive but maintaining her own airway, and seems comfortable. She is minimally communicative. On close physical exam the patient has no chest pain with palpation, no abdominal pain to palpation, no apparent distress with movement of the arms and legs. She does have a wound to the left great toe which is bathed in iodine and appears clean and well-kept. Related Data Home Medications ?Medication ?Instructions ?Recorded ?Confirmed divalproex 125 mg capsule,delayed 250 mg PO TID 01/09/25 06/04/25 release sprinkle (Depakote Sprinkles) fluoxetine 10 mg capsule 10 mg PO DAILY 02/21/25 06/04/25 acetaminophen 500 mg tablet 500 mg PO Q6H PRN 03/27/25 06/04/25 aripiprazole 2 mg tablet (Abilify) 2 mg PO QAM 03/27/25 06/04/25 atorvastatin 20 mg tablet 20 mg PO QHS 03/27/25 06/04/25 mesalamine 400 mg capsule (with 800 mg PO TID 03/27/25 06/04/25 delayed release tablets inside) Previous Rx's ?Medication ?Instructions ?Recorded lidocaine 4 % topical patch 2 patch topical DAILY #60 ea 07/20/24 (Aspercreme (lidocaine)) melatonin 5 mg capsule 5 mg PO QHS #90 caps 07/20/24 memantine 10 mg tablet 10 mg PO BID #180 tabs 07/20/24 propranolol 10 mg tablet 10 mg PO TID #270 tabs 07/20/24 Allergies Allergy/AdvReac Type Severity Reaction Status Date / Time iodine Allergy Mild Verified 05/02/25 09:16 Sulfa (Sulfonamide Allergy Mild Verified 05/02/25 09:16 Antibiotics) [facility] Disclaimer: The information contained in this section may have been updated after the patient was seen, as this information can be updated by other users. Medical History Chronic kidney disease Unable to care for self Impaired functional mobility, balance, and endurance Abdominal aortic aneurysm (AAA) History of vaginal delivery x 2 Abnormal colonoscopy July 2022, polyps x 3 Benign colonic polyp Dementia Seizure disorder Crohn's disease Diabetes mellitus, type II Hyperlipidemia Hypertension Surgical History History of total knee replacement right History of cholecystectomy Social History Smoking Status: Never smoker alcohol intake: current substance use type: denies use current occupational status: retired Travel in the last 8 weeks?: None marital status: Have you lived/traveled outside US in past 30 days?: No Contact w/someone who lives/traveled outside US past 30 days?: No Exposure to someone with infectious disease in past 14 days?: No Do you have a fever (greater than 100.4 F or 38 C)?: No Have you tested positive for COVID-19?: No Exposed to someone with COVID-19 in past 14 days?: No Do you have a sore throat?: No Do you have a cough?: No Do you have any weakness?: No Do you have any diarrhea?: No Are you experiencing any unusual bleeding?: No Do you have any muscle aches/pain?: No Do you have any abdominal pain?: No Are you experiencing loss of taste or smell?: No Other Medical History Have you received the Pneumonia Vaccine: Yes (08/02/18) ROS Obtained: Yes All systems reviewed & no additional complaints except as documented Physical Exam General General appearance: in no apparent distress Head Head exam: atraumatic and normocephalic Eye Eye exam: Present normal appearance, PERRL and EOMI ENT ENT exam: Present normal exam and normal external ear exam Neck Neck exam: Present normal inspection, full ROM and trachea midline Chest Chest inspection: Present normal inspection and symmetric chest wall rise; Absent tenderness Respiratory Respiratory exam: Absent respiratory distress Cardiovascular Cardiovascular exam: Present regular rate, normal rhythm and other (appears warm and well perfused) Abdominal Exam Abdominal exam: Absent distention or tenderness Extremities Exam Extremities exam: Present normal inspection and full ROM Neurological Exam Neurological exam: Present alert and oriented X3 Psychiatric Psychiatric exam: Present normal affect Skin Skin exam: Present warm and dry Medical Decision Making Medical Records Medical records reviewed: Yes I reviewed the patient's medical records. Screening: Per USPSTF and CDC recommendations, given the prevalence of disease in our region, it is our hospital?s policy to screen for HIV and viral Hepatitis for all patients aged 18 and over and those with ongoing risk factors. Jonnathan Inquiry Pt receiving controlled substance: No Jonnathan was queried for this patient: No Vital Signs: 06/13/25 08:15 Temperature 96.4 F L Temperature Source Rectal Pulse Rate [Right Radial] 63 Respiratory Rate 13 Blood Pressure [Right Arm] 122/86 Blood Pressure Mean [Right Arm] 98 Blood Pressure Source [Right Arm] Manual Cuff/ Palpation Blood Pressure Position [Right Arm] Supine 02 Sat by Pulse Oximetry 95 Oxygen Delivery Method Room Air Lab Data Lab results reviewed: Yes I reviewed the patient's lab results. Lab Results 06/13/25 07:30: WBC 11.0 H, RBC 5.37, Hgb 15.2, Hct 47.2 H, MCV 87.9, MCH 28.3, MCHC 32.2, RDW 16.8, Plt Count 434 H, MPV 10.3, Neut % (Auto) 45.7, Lymph % (Auto) 38.8, [place] % (Auto) 7.2, Eos % (Auto) 4.5, Baso % (Auto) 3.5 H, Neut # (Auto) 5.0, Lymph # (Auto) 4.3, [place] # (Auto) 0.8, Eos # (Auto) 0.5 H, Baso # (Auto) 0.4 H, Total Counted 100, Neutrophils % (Manual) 44, Lymphocytes % (Manual) 46, Monocytes % (Manual) 6, Eosinophils % (Manual) 4 H, Platelet Estimate Slight increase, RBC Morphology Normal, Sodium 141, Potassium 4.1, Chloride 103, Carbon Dioxide 25, Anion Gap 17.1 H, BUN 19 H, Creatinine 0.80, Estimated GFR 72, Est GFR ( Amer) 87, Glucose 92, Calcium 9.6, Total Bilirubin 0.3, AST 33, ALT 37, Alkaline Phosphatase 77, C-Reactive Protein 5.2 H, NT-Pro-B Natriuret Pep 304 H, Total Protein 8.1, Albumin 4.5, Globulin 3.6 H, Albumin/Globulin Ratio 1.3, HCV Ab SHALA w/Rflx PCR Qn Negative, HIV Ag/Ab Combo Qual Negative 06/13/25 07:56: SARS-CoV-2 (PCR) Not detected, Influenza A Untype (PCR) Not detected, Influenza Type B (PCR) Not detected 06/13/25 08:09: Urine Color Yellow, Urine Appearance Clear, Urine pH 6.5, Ur Specific [place] 1.015, Urine Protein Negative, Urine Glucose (UA) Negative, Urine Ketones Negative, Urine Blood Negative, Urine Nitrate Negative, Urine Bilirubin Negative, Urine Urobilinogen 0.2, Ur Leukocyte Esterase Negative, Urine WBC 3-5, Ur Squamous Epith Cells 3-5, Urine Bacteria Trace 06/13/25 07:30 06/13/25 07:30 Orders (Tests/Meds): ORDERS Category Date Time Status CT head/brain wo con Stat Cat Scan 06/13/25 09:27 Taken CXR --portable [XR chest portable] Stat Exams 06/13/25 07:48 Completed POCUS Point of Care (ER Only) Stat Exams 06/13/25 08:27 Completed BNP [NT Pro Brain Natriuretic Pep.] Stat Lab 06/13/25 07:30 Completed CBC Man Diff [Complete Blood Count Man Dif] Stat Lab 06/13/25 07:30 Completed CMP [Comprehensive Metabolic Panel] Stat Lab 06/13/25 07:30 Completed CRP [C-Reactive Protein] Stat Lab 06/13/25 07:30 Results HIV Combo Stat Lab 06/13/25 07:30 Completed Hepatitis C Ab Qual. W/ RFX Stat Lab 06/13/25 07:30 Completed Procalcitonin Stat Lab 06/13/25 07:30 Results Rapid PCR Covid and Flu A/B Stat Lab 06/13/25 07:56 Completed UA [Urinalysis and Microscopic] Stat Lab 06/13/25 08:09 Completed Medical Decision Narrative: MDM In summary, this [65-year-old female] presents to the emergency department today with concern for breakthrough seizure. Initial evaluation the patient [hemodynamically stable, comfortable, neurologically at her baseline]. Differential diagnosis includes but is not limited to breakthrough seizure, epilepsy, cranial hemorrhage, urinary tract infection, pneumonia, septicemia, cellulitis. Based on these concerns, I ordered a comprehensive laboratory and imaging workup including metabolic panel, infectious markers, and imaging, chest imaging. On initial evaluation the patient was found to be hemodynamically stable but mildly hypothermic at 95.4 degrees. The patient was provided with blankets and had a satisfactory increase in body temperature with minimal intervention. Labs personally reviewed and interpreted demonstrate no major metabolic abnormalities, leukocytosis 1.1 above normal, mildly elevated CRP, no signs of urinary tract infection on urinalysis. X-rays personally interpreted by me demonstrate normal cardiopulmonary silhouette, no concern for infection or consolidation. CT imaging personally interpreted by me demonstrate no acute abnormalities. On reassessment the patient had reached normal body temperature, had remained at her neurologic baseline, and remained comfortable while in the emergency department. Though we could not find a definitive source of the patient's breakthrough seizure, we are reassured by her imaging and laboratory workup. We successfully ruled out intracranial injury, pneumonia, urinary tract infection, skin infection. Due to the patient's mild leukocytosis and mildly elevated inflammatory markers and out of an over abundance of caution, we made the decision to draw blood cultures and plan to reach out to the patient's facility if 1 or both of them were positive. Ultimately I think it is most likely this patient suffered from a single breakthrough seizure, exact etiology is unlikely though viral respiratory infection is high on her differential. Given her return to baseline, reassuring hemodynamics, and largely negative workup before comfortable with discharge to the patient's facility with plans to call if her blood culture results are positive. Critical Care Critical Care Time Critical Care Time: No
--- NOTE | 2025-06-13 07:48 | XR_ITS ---
FINAL REPORT CLINICAL HISTORY: SOB COMPARISON: 05/29/2025 FINDINGS: SINGLE VIEW CHEST The heart is normal in size. The mediastinum is unremarkable. The lungs are clear. There is no pneumothorax. IMPRESSION: No acute process. Reviewed, Interpreted and Dictated by Wili Mckeon MD Transcribed by Isa Ladd Authenticated and [facility]
[2025-06-13 07:59] LABS: Coronavirus 19, PCR Not Detected (NotDetected); Influenza A, PCR Not Detected (NotDetected); Influenza B, PCR Not Detected (NotDetected)
--- OUTSIDE RECORDS SUMMARY | 2025-06-13 08:01 | XMS_ITS | Clinical Summary ---
Author Organization [facility] Address [address] [place] [address] Phone Care Team Providers Care Refuge Manager Name Role Phone Unavailable Primary Care Provider [...] to complete this topic Insurance OLEGARIO Richard [id number] MEDICARE [place] PART A AND B
--- OUTSIDE RECORDS SUMMARY | 2025-06-13 08:01 | XMS_ITS | Clinical Summary ---
Author Organization [facility] Address [address] [place] [id number] Care Team Providers Care Gis Administrator Name Role Phone None, Physician Primary Care [...] patient's age to complete this topic Insurance [facility] MELIZA KENDRICK OLEGARIO Leo [id number] [place] [address] [employer] Care Teams Gis Administrator Relationship Specialty Start Date End Date None, Physician PCP - General 02/03/25
[2025-06-13 08:04] LABS: Chloride 103 mmol/L (98-107)
[2025-06-13 08:05] LABS: Albumin Level 4.5 g/dl (3.5-5.0); Potassium 4.1 mmoL/L (3.5-5.1); Sodium 141 mmol/L (136-145)
[2025-06-13 08:07] LABS: Blood Urea Nitrogen 19 mg/dl (7-17); Creatinine,Serum 0.80 mg/dl (0.52-1.04); Estimated Glomerular Filt Rate 72 ml/min (>60); GFR (African American) 87 ML/MIN (>60); Hematocrit 47.2 % (37.0-47.0); Hemoglobin 15.2 g/dL (12.2-16.2); Mean Corpuscular HGB Conc 32.2 g/dL (31.8-35.4); Mean Corpuscular Hemoglobin 28.3 pg (27.0-31.2); Mean Corpuscular Volume 87.9 fl (81-99); Platelet Count 434 K/mm3 (142-424); Red Blood Count 5.37 M/mm3 (4.20-5.40); White Blood Count 11.0 K/mm3 (4.8-10.8)
[2025-06-13 08:08] LABS: Alanine Aminotransferase 37 U/L (12-78); Albumin/Globulin Ratio 1.3 (1.1-1.8); Alkaline Phosphatase 77 U/L (38-126); Anion Gap 17.1 mEq/L (5-15); Aspartate Amino Transferase 33 U/L (14-36); Bilirubin,Total 0.3 mg/dl (0.2-1.3); Calcium 9.6 mg/dl (8.4-10.2); Carbon Dioxide 25 mmol/L (22.0-30.0); Globulin 3.6 g/dL (1.3-3.2); Total Protein,Serum 8.1 g/dl (6.3-8.2)
[2025-06-13 08:13] LABS: Microscopic, Urine URINE MICROSCOPIC (MICROSCOPIC)
[2025-06-13 08:15] LABS: Bilirubin,Urine Negative (Negative); Color,Urine YELLOW (Yellow); Glucose,Urine (UA) Negative (Negative); Ketones,Urine Negative (Negative); Leukocyte Esterase,Urine Negative (Negative); PH,Urine 6.5 (5.0-8.5); Protein,Urine Negative (Negative); Specific Gravity, Urine 1.015 (1.005-1.030); Urobilinogen,Urine 0.2 EU/dl (0.2)
[2025-06-13 08:23] LABS: Bacteria,Urine Trace /lpf
[2025-06-13 09:16] LABS: RBC Morphology Normal; Total Cells Counted 100
[2025-06-13 09:22] LABS: Glucose 92 mg/dl (74-100)
--- NOTE | 2025-06-13 09:27 | CT_ITS ---
FINAL REPORT TECHNIQUE: Axial CT images were performed through the head. Coronal reformatted images were submitted. This study was performed with techniques to keep radiation doses as low as reasonably achievable (ALARA). Individualized dose reduction techniques using automated exposure control or adjustment of mA and/or kV according to the patient's size were employed. CLINICAL HISTORY: breakthrough seizure COMPARISON: 05/30/2025 FINDINGS: Head is asymmetrically positioned in the gantry. There is moderate diffuse cortical atrophy with proportional ventriculomegaly. There is no evidence of hemorrhage. There is no mass or edema identified. There is no abnormal extra-axial fluid seen. There is mild mucoperiosteal thickening of the left maxillary sinus. IMPRESSION: No acute intracranial process. Reviewed, Interpreted and Dictated by Wili Mckeon MD Transcribed by Jacey Mclaughlin Authenticated and . [facility]
[2025-06-13 09:31] LABS: Hepatitis C Ab Qual. W/ RFX NEGATIVE (Negative)
--- NOTE | 2025-06-13 09:32 | PC.NURSE ---
Kristin MARIANO from the [facility] called for an update, I let her know where we stand.
[2025-06-13 09:44] LABS: NT Pro Brain Natriuretic Pep. 304 pg/mL (0-125)
[2025-06-13 09:51] LABS: C-Reactive Protein 5.2 mg/L (0-4)
[2025-06-13 10:03] LABS: Procalcitonin 0.058 ng/mL (0.0-2.0)
--- NOTE | 2025-06-13 11:02 | HMH.EDGENADL ---
Discharge Plan Disposition Patient Disposition: Home, Self-Care Prescriptions Prescriptions: New amoxicillin 500 mg capsule 500 mg PO BID 5 Days Qty: 10 0RF No Action acetaminophen 500 mg tablet 500 mg PO Q6H PRN mesalamine 400 mg capsule (with del rel tablets) 800 mg PO TID atorvastatin 20 mg tablet 20 mg PO QHS divalproex [Depakote Sprinkles] 125 mg capsule, delayed rel sprinkle 250 mg PO TID fluoxetine 10 mg capsule 10 mg PO DAILY aripiprazole [Abilify] 2 mg tablet 2 mg PO QAM lidocaine [Aspercreme (lidocaine)] 4 % adhesive patch,medicated 2 patch topical DAILY Qty: 60 0RF melatonin 5 mg capsule 5 mg PO QHS Qty: 90 0RF memantine 10 mg tablet 10 mg PO BID Qty: 180 3RF propranolol 10 mg tablet 10 mg PO TID Qty: 270 3RF Referrals Follow up/Referrals: Provider,Referral, MD [Primary Care Provider, Medical] - See instructions Activity Restrictions/Add. Instructions Additional Instructions/Restrictions: You were seen in the emergency department for a breakthrough seizure. We believe that this was due to a case of sinusitis. Please take the antibiotics below for the next 5 days. Please continue your seizure medications as prescribed. We recommend reaching out to your neurologist and your primary care provider to inform them of your visit to the emergency department. If symptoms worsen, new symptoms develop, please return to the ED. Due to your initially decreased temperature we did draw blood cultures today. If they are positive we will call you and ask you to return to the emergency department. Clinical Impressions Clinical Impression: Seizure, Sinusitis Instructions Patient Instructions: DI for Seizure Disorder -- Adult, DI for Seizure (Not Epilepsy/Seizure Disorder), DI for Seizure Disorder -- Child Print Language Print Language: German Discharge ED Provider: Héctor Esteban Adult [facility] General Chief complaint: Seizure Stated complaint: Seizures Time Seen by Provider: 06/13/25 07:45 Mode of Arrival: EMS Related Data Home Medications ?Medication ?Instructions ?Recorded ?Confirmed divalproex 125 mg capsule,delayed 250 mg PO TID 01/09/25 06/04/25 release sprinkle (Depakote Sprinkles) fluoxetine 10 mg capsule 10 mg PO DAILY 02/21/25 06/04/25 acetaminophen 500 mg tablet 500 mg PO Q6H PRN 03/27/25 06/04/25 aripiprazole 2 mg tablet (Abilify) 2 mg PO QAM 03/27/25 06/04/25 atorvastatin 20 mg tablet 20 mg PO QHS 03/27/25 06/04/25 mesalamine 400 mg capsule (with 800 mg PO TID 03/27/25 06/04/25 delayed release tablets inside) Previous Rx's ?Medication ?Instructions ?Recorded lidocaine 4 % topical patch 2 patch topical DAILY #60 ea 07/20/24 (Aspercreme (lidocaine)) melatonin 5 mg capsule 5 mg PO QHS #90 caps 07/20/24 memantine 10 mg tablet 10 mg PO BID #180 tabs 07/20/24 propranolol 10 mg tablet 10 mg PO TID #270 tabs 07/20/24 amoxicillin 500 mg capsule 500 mg PO BID 5 days #10 caps 06/13/25 Allergies Allergy/AdvReac Type Severity Reaction Status Date / Time iodine Allergy Mild Verified 05/02/25 09:16 Sulfa (Sulfonamide Allergy Mild Verified 05/02/25 09:16 Antibiotics) [facility] Disclaimer: The information contained in this section may have been updated after the patient was seen, as this information can be updated by other users. Medical History Chronic kidney disease Unable to care for self Impaired functional mobility, balance, and endurance Abdominal aortic aneurysm (AAA) History of vaginal delivery x 2 Abnormal colonoscopy July 2022, polyps x 3 Benign colonic polyp Dementia Seizure disorder Crohn's disease Diabetes mellitus, type II Hyperlipidemia Hypertension Surgical History History of total knee replacement right History of cholecystectomy Social History Smoking Status: Never smoker alcohol intake: current substance use type: denies use current occupational status: retired Travel in the last 8 weeks?: None marital status: Have you lived/traveled outside [place] in past 30 days?: No Contact w/someone who lives/traveled outside US past 30 days?: No Exposure to someone with infectious disease in past 14 days?: No Do you have a fever (greater than 100.4 F or 38 C)?: No Have you tested positive for COVID-19?: No Exposed to someone with COVID-19 in past 14 days?: No Do you have a sore throat?: No Do you have a cough?: No Do you have any weakness?: No Do you have any diarrhea?: No Are you experiencing any unusual bleeding?: No Do you have any muscle aches/pain?: No Do you have any abdominal pain?: No Are you experiencing loss of taste or smell?: No Other Medical History Have you received the Pneumonia Vaccine: Yes (08/02/18) Physical Exam General General appearance: in no apparent distress Medical Decision Making Medical Records Screening: Per USPSTF and CDC recommendations, given the prevalence of disease in our region, it is our hospital?s policy to screen for HIV and viral Hepatitis for all patients aged 18 and over and those with ongoing risk factors. Vital Signs: 06/13/25 07:51 06/13/25 07:58 06/13/25 08:03 Temperature Temperature Source Pulse Rate 68 72 Pulse Rate [Right Radial] Respiratory Rate 18 13 12 Blood Pressure 231/119 H 219/109 H 214/189 H Blood Pressure [Right Arm] Blood Pressure Mean [Right Arm] Blood Pressure Source [Right Arm] Blood Pressure Position [Right Arm] 02 Sat by Pulse Oximetry 96 93 L Oxygen Delivery Method 06/13/25 08:15 06/13/25 08:25 06/13/25 08:26 Temperature 96.4 F L Temperature Source Rectal Pulse Rate 56 L 56 L Pulse Rate [Right Radial] 63 Respiratory Rate 13 11 L 11 L Blood Pressure 152/76 H 165/94 H Blood Pressure [Right Arm] 122/86 Blood Pressure Mean [Right Arm] 98 Blood Pressure Source [Right Arm] Manual Cuff/ Palpation Blood Pressure Position [Right Arm] Supine 02 Sat by Pulse Oximetry 95 94 L 94 L Oxygen Delivery Method Room Air 06/13/25 08:31 06/13/25 09:01 06/13/25 09:51 Temperature Temperature Source Pulse Rate 63 54 L 69 Pulse Rate [Right Radial] Respiratory Rate 14 12 Blood Pressure 166/72 H 141/68 H 161/81 H Blood Pressure [Right Arm] Blood Pressure Mean [Right Arm] Blood Pressure Source [Right Arm] Blood Pressure Position [Right Arm] 02 Sat by Pulse Oximetry 95 96 98 Oxygen Delivery Method 06/13/25 10:01 06/13/25 10:31 06/13/25 10:41 Temperature 97.3 F L Temperature Source Rectal Pulse Rate 68 69 Pulse Rate [Right Radial] Respiratory Rate Blood Pressure 163/79 H 97/75 L Blood Pressure [Right Arm] Blood Pressure Mean [Right Arm] Blood Pressure Source [Right Arm] Blood Pressure Position [Right Arm] 02 Sat by Pulse Oximetry 98 98 Oxygen Delivery Method Lab Data Lab Results 06/13/25 07:30: WBC 11.0 H, RBC 5.37, Hgb 15.2, Hct 47.2 H, MCV 87.9, MCH 28.3, MCHC 32.2, RDW 16.8, Plt Count 434 H, MPV 10.3, Neut % (Auto) 45.7, Lymph % (Auto) 38.8, [place] % (Auto) 7.2, Eos % (Auto) 4.5, Baso % (Auto) 3.5 H, Neut # (Auto) 5.0, Lymph # (Auto) 4.3, [place] # (Auto) 0.8, Eos # (Auto) 0.5 H, Baso # (Auto) 0.4 H, Total Counted 100, Neutrophils % (Manual) 44, Lymphocytes % (Manual) 46, Monocytes % (Manual) 6, Eosinophils % (Manual) 4 H, Platelet Estimate Slight increase, RBC Morphology Normal, Sodium 141, Potassium 4.1, Chloride 103, Carbon Dioxide 25, Anion Gap 17.1 H, BUN 19 H, Creatinine 0.80, Estimated GFR 72, Est GFR ( Amer) 87, Glucose 92, Calcium 9.6, Total Bilirubin 0.3, AST 33, ALT 37, Alkaline Phosphatase 77, C-Reactive Protein 5.2 H, NT-Pro-B Natriuret Pep 304 H, Total Protein 8.1, Albumin 4.5, Globulin 3.6 H, Albumin/Globulin Ratio 1.3, Procalcitonin 0.058, HCV Ab SHALA w/Rflx PCR Qn Negative, HIV Ag/Ab Combo Qual Negative 06/13/25 07:56: SARS-CoV-2 (PCR) Not detected, Influenza A Untype (PCR) Not detected, Influenza Type B (PCR) Not detected 06/13/25 08:09: Urine Color Yellow, Urine Appearance Clear, Urine pH 6.5, Ur Specific [place] 1.015, Urine Protein Negative, Urine Glucose (UA) Negative, Urine Ketones Negative, Urine Blood Negative, Urine Nitrate Negative, Urine Bilirubin Negative, Urine Urobilinogen 0.2, Ur Leukocyte Esterase Negative, Urine WBC 3-5, Ur Squamous Epith Cells 3-5, Urine Bacteria Trace 06/13/25 07:30 06/13/25 07:30 Orders (Tests/Meds): ORDERS Category Date Time Status CT head/brain wo con Stat Cat Scan 06/13/25 09:27 Completed CXR --portable [XR chest portable] Stat Exams 06/13/25 07:48 Completed POCUS Point of Care (ER Only) Stat Exams 06/13/25 08:27 Completed BNP [NT Pro Brain Natriuretic Pep.] Stat Lab 06/13/25 07:30 Completed CBC Man Diff [Complete Blood Count Man Dif] Stat Lab 06/13/25 07:30 Completed CMP [Comprehensive Metabolic Panel] Stat Lab 06/13/25 07:30 Completed CRP [C-Reactive Protein] Stat Lab 06/13/25 07:30 Completed HIV Combo Stat Lab 06/13/25 07:30 Completed Hepatitis C Ab Qual. W/ RFX Stat Lab 06/13/25 07:30 Completed Procalcitonin Stat Lab 06/13/25 07:30 Completed Rapid PCR Covid and Flu A/B Stat Lab 06/13/25 07:56 Completed UA [Urinalysis and Microscopic] Stat Lab 06/13/25 08:09 Completed Blood Culture Stat Micro 06/13/25 10:55 Received
--- NOTE | 2025-06-13 11:04 | PC.NURSE ---
report given to [facility]
== END 2025-06-13 12:12 ==
PROVIDERS: Emergency Provider Student in an Organized Health Care Education/Training Program
DX: G40.909 Epilepsy, unspecified, not intractable, without status epilepticus (principal); J01.00 Acute maxillary sinusitis, unspecified
CPT/HCPCS: 70450; 71045; 80053; 81001; 83880; 84145; 85007; 85014; 85018; 85048; 85049; 86140; 86803; 87040; 87389; 87636; 99284

== ENCOUNTER 2025-06-24 05:37 | Emergency (ER) | payer MEDICARE, SELFPAY ==
[2025-06-24] VITALS (18 sets, daily range): BP systolic 101–178; BP diastolic 47–131; PULSE 55–104; RESP 11–21; TEMP 36.7–36.9; O2SAT 84–100; BMI 25.7
--- OUTSIDE RECORDS SUMMARY | 2025-06-24 05:48 | XMS_ITS | Clinical Summary ---
Author Organization [facility] Address [address] [place] [id number] Care Team Providers Care Bods Developer Name Role Phone None, Physician Primary Care [...] patient's age to complete this topic Insurance [facility] MELIZA KENDRICK OLEGARIO Leo [id number] [place] [address] [employer] Care Teams Bods Developer Relationship Specialty Start Date End Date None, Physician PCP - General 02/03/25
--- OUTSIDE RECORDS SUMMARY | 2025-06-24 05:48 | XMS_ITS | Clinical Summary ---
Author Organization [facility] Address [address] [place] [address] Phone Care Team Providers Care Inspector And Hand Packager Name Role Phone Unavailable Primary Care Provider [...] to complete this topic Insurance OLEGARIO Richard [id number] MEDICARE [place] PART A AND B
--- NOTE | 2025-06-24 06:02 | ED_ITS ---
Discharge Plan Disposition Patient Disposition: Home, Self-Care Condition: Good Prescriptions Prescriptions: No Action acetaminophen 500 mg tablet 500 mg PO Q6H PRN mesalamine 400 mg capsule (with del rel tablets) 800 mg PO TID atorvastatin 20 mg tablet 20 mg PO QHS divalproex [Depakote Sprinkles] 125 mg capsule, delayed rel sprinkle 250 mg PO TID fluoxetine 10 mg capsule 10 mg PO DAILY aripiprazole [Abilify] 2 mg tablet 2 mg PO QAM lidocaine [Aspercreme (lidocaine)] 4 % adhesive patch,medicated 2 patch topical DAILY Qty: 60 0RF melatonin 5 mg capsule 5 mg PO QHS Qty: 90 0RF memantine 10 mg tablet 10 mg PO BID Qty: 180 3RF propranolol 10 mg tablet 10 mg PO TID Qty: 270 3RF amoxicillin 500 mg capsule 500 mg PO BID 5 Days Qty: 10 0RF Referrals Follow up/Referrals: Provider,Referral, MD [Primary Care Provider, Medical] - See instructions Activity Restrictions/Add. Instructions Additional Instructions/Restrictions: group home staff: I want you to discuss with Dr. Castle on Wednesday the possibility of switching her from Divalproex to Valproic Acid oral solution to improve compliance with medication. If she has any new or worsening symptoms please return to the ER. Clinical Impressions Clinical Impression: Seizure Instructions Patient Instructions: DI for Seizure Disorder -- Adult Print Language Print Language: Dominican Discharge ED Provider: Eddy Kamara General Adult HPI <Eddy Kamara MD - Last Filed: 06/24/25 07:00> General Chief complaint: Seizure Stated complaint: seizure Time Seen by Provider: 06/24/25 05:43 Mode of Arrival: EMS Source of Information: EMS and Medical Record Description of Symptoms (Recalled from ER Triage Doc. by RN): PT brought to the ED via [facility] for evaluation of seizure. EMS stated the seizure was witnessed and lasted about 30 seconds. History of Present Illness HPI narrative: 65-year-old female with history of seizures Zentz to the ER for evaluation of seizure. Patient lives at [facility] and was brought in by EMS after nursing staff reportedly witnessed the the patient to have approximately 30 to 60 seconds of generalized tonic-clonic activity and then be minimally responsive afterwards. At baseline patient has severely impaired mobility, dementia, nonverbal. Patient was evaluated for similar complaint 11 days ago. On arrival to the ER patient is alert, does not appear to be in any pain, EMS reports no medications administered en route. Reportedly no recent illness or other associated symptoms. Related Data Home Medications ?Medication ?Instructions ?Recorded ?Confirmed divalproex 125 mg capsule,delayed 250 mg PO TID 06/04/25 release sprinkle (Depakote Sprinkles) fluoxetine 10 mg capsule 10 mg PO DAILY 02/21/2505/09 acetaminophen 500 mg tablet 500 mg PO Q6H PRN 03/27/25 06/04/25 aripiprazole 2 mg tablet (Abilify) 2 mg PO QAM 5 06/04/25 atorvastatin 20 mg tablet 20 mg PO QHS 03/27/25 mesalamine 400 mg capsule (with 800 mg PO TID 03/27/25 06/04/25 delayed release tablets inside) Previous Rx's ?Medication ?Instructions ?Recorded lidocaine 4 % topical patch 2 patch topical DAILY #60 ea 07/20/24 (Aspercreme (lidocaine)) melatonin 5 mg capsule 5 mg PO QHS #90 caps 4 memantine 10 mg tablet 10 mg PO BID #180 tabs 07/20 propranolol 10 mg tablet 10 mg PO TID #270 tabs 07/20 amoxicillin 500 mg capsule 500 mg PO BID 5 days #10 ca ps 06/13/25 Allergies Allergy/AdvReac Type Severity Reaction Status Date / Time iodine Allergy Mild Verified 05/02/25 09:16 Sulfa (Sulfonamide Allergy Mild Verified 05/02/25 09:16 Antibiotics) [facility] <Eddy Kamara MD - Last Filed: 06/24/25 07:00> [facility] Disclaimer: The information contained in this section may have been updated after the patient was seen, as this information can be updated by other users. Medical History Chronic kidney disease Unable to care for self Impaired functional mobility, balance, and endurance Abdominal aortic aneurysm (AAA) History of vaginal delivery x 2 Abnormal colonoscopy July 2022, polyps x 3 Benign colonic polyp Dementia Seizure disorder Crohn's disease Diabetes mellitus, type II Hyperlipidemia Hypertension Surgical History History of total knee replacement right History of cholecystectomy Social History Smoking Status: Never smoker alcohol intake: current substance use type: denies use current occupational status: retired Travel in the last 8 weeks?: None marital status: Have you lived/traveled outside US in past 30 days?: No Contact w/someone who lives/traveled outside US past 30 days?: No Exposure to someone with infectious disease in past 14 days?: No Do you have a fever (greater than 100.4 F or 38 C)?: No Have you tested positive for COVID-19?: No Exposed to someone with COVID-19 in past 14 days?: No Do you have a sore throat?: No Do you have a cough?: No Do you have any weakness?: No Do you have any diarrhea?: No Are you experiencing any unusual bleeding?: No Do you have any muscle aches/pain?: No Do you have any abdominal pain?: No Are you experiencing loss of taste or smell?: No Other Medical History Have you received the Pneumonia Vaccine: Yes (08/02/18) <Eddy Kamara MD - Last Filed: 06/24/25 07:00> ROS Obtained: Yes unobtainable due to mental status Physical Exam <Eddy Kamara MD - Last Filed: 06/24/25 07:00> General General appearance: alert and in no apparent distress Head Head exam: atraumatic and normocephalic Eye Eye exam: Present PERRL and EOMI ENT ENT exam: Present mucous membranes moist Neck Neck exam: Present normal inspection and full ROM Chest Chest inspection: Present symmetric chest wall rise Respiratory Respiratory exam: Present normal lung sounds bilaterally; Absent respiratory distress, wheezes or stridor Cardiovascular Cardiovascular exam: Present regular rate and normal rhythm Abdominal Exam Abdominal exam: Present soft; Absent distention or tenderness Extremities Exam Extremities exam: Present edema (Only trace pitting edema in the bilateral lower extremities) and other (Small wound on left great toe bathing iodine appears well healing); Absent tenderness or joint swelling Neurological Exam Neurological exam: Present alert and other (Limited ability to assess neurofunction in this patient since she is nonverbal but she has equal strength in all extremities and responds to painful stimuli equally bilaterally in upper and lower extremity) Psychiatric Psychiatric exam: Present normal affect Skin Skin exam: Present warm and dry Medical Decision Making <Eddy Kamara MD - Last Filed: 06/24/25 07:00> Medical Records Medical records reviewed: Yes I reviewed the patient's medical records. Screening: Per USPSTF and CDC recommendations, given the prevalence of disease in our region, it is our hospital?s policy to screen for HIV and viral Hepatitis for all patients aged 18 and over and those with ongoing risk factors. MR Comment: Workup from most recent evaluation in the ER on 06/23/2025 was reviewed demonstrating no acute intracranial pathology, unremarkable labs. Jonnathan Inquiry Pt receiving controlled substance: No Vital Signs: 06/24/25 05:28 06/24/25 06:43 06/24/25 06:45 Temperature 98.4 F Temperature Source Tympanic Pulse Rate 104 H 60 Pulse Rate [Right] 83 Respiratory Rate 16 21 18 Blood Pressure 168/80 H 168/80 H Blood Pressure [Right Arm] 156/109 H Blood Pressure Mean [Right Arm] 124 02 Sat by Pulse Oximetry 96 95 95 Oxygen Delivery Method Room Air 06/24/25 07:01 06/24/25 07:31 06/24/25 07:33 Temperature Temperature Source Pulse Rate 62 61 68 Pulse Rate [Right] Respiratory Rate 16 17 11 L Blood Pressure 178/95 H 178/84 H 169/131 H Blood Pressure [Right Arm] Blood Pressure Mean [Right Arm] 02 Sat by Pulse Oximetry 96 97 84 L Oxygen Delivery Method 06/24/25 07:43 06/24/25 08:00 06/24/25 08:30 Temperature Temperature Source Pulse Rate 68 69 65 Pulse Rate [Right] Respiratory Rate 19 16 15 Blood Pressure 158/81 H 146/93 H 166/85 H Blood Pressure [Right Arm] Blood Pressure Mean [Right Arm] 02 Sat by Pulse Oximetry 92 L 93 L 94 L Oxygen Delivery Method Lab Data Lab Results 06/24/25 05:34: WBC 11.4 H, RBC 4.85, Hgb 13.9, Hct 41.9, MCV 86.4, MCH 28.7, MCHC 33.2, RDW 16.3, Plt Count 478 H, MPV 10.4, Neut % (Auto) 50.3, Lymph % (Auto) 35.6, [place] % (Auto) 7.5, Eos % (Auto) 3.1, Baso % (Auto) 3.2 H, Neut # (Auto) 5.7, Lymph # (Auto) 4.0, Corson # (Auto) 0.9, Eos # (Auto) 0.4, Baso # (Auto) 0.4 H, Sodium 142, Potassium 4.2, Chloride 110 H, Carbon Dioxide 28, Anion Gap 8.2, BUN 27 H, Creatinine 0.90, Estimated Creat Clear 61, Estimated GFR 63, Est GFR ( Amer) 76, Glucose 99, Calcium 9.4, Total Bilirubin 0.3, AST 38 H, ALT 40, Alkaline Phosphatase 68, Total Protein 7.3, Albumin 4.1, Globulin 3.2, Albumin/Globulin Ratio 1.3, Plasma/Serum Alcohol < 10 06/24/25 06:18: Urine Color Yellow, Urine Appearance Clear, Urine pH 7.0, Ur Specific Rangely 1.015, Urine Protein Negative, Urine Glucose (UA) Negative, Urine Ketones Negative, Urine Blood Negative, Urine Nitrate Negative, Urine Bilirubin Negative, Urine Urobilinogen 0.2, Ur Leukocyte Esterase Negative, Urine RBC None, Urine WBC None, Ur Squamous Epith Cells Occasional, Urine Bacteria Trace, Urine Opiates Screen Negative, Urine Methadone Screen Negative, Ur Barbituates Screen Negative, Ur Phencyclidine Scrn Negative, Ur Amphetamines Screen Negative, U Benzodiazepines Scrn Negative, Urine Cocaine Screen Negative, U Marijuana (THC) Screen Negative 06/24/25 06:46: VBG pH 7.36, VBG pCO2 43.1, VBG pO2 35.5, VBG HCO3 23.8, VBG Total CO2 25.1, VBG O2 Saturation 68.2, VBG Base Excess -1.6, VBG Lactic Acid 1.2 06/24/25 05:34 06/24/25 05:34 Orders (Tests/Meds): ED MEDICATIONS Generic Name Dose Route Start Last Admin Trade Name Freq PRN Reason Stop Dose Admin Dextrose/Sodium Chloride 1,000 mls @ 200 mls/hr 06/24/25 06:20 06/24/25 06:20 Dextrose 5%-0.9% Nacl Iv Soln IV 07/24/25 06:19 200 mls/hr .Q5H KARISSA Administration ORDERS Category Date Time Status CT head/brain wo con Stat Cat Scan 06/24/25 06:06 Completed CXR --portable [XR chest portable] Stat Exams 06/24/25 06:06 Completed CBC w/Auto Diff [Complete Blood Count Auto Diff] Stat Lab 06/24/25 05:34 Completed CMP [Comprehensive Metabolic Panel] Stat Lab 06/24/25 05:34 Completed Ethanol [Ethyl Alcohol] Stat Lab 06/24/25 05:34 Completed UDS [Drug Screen,Urine] Stat Lab 06/24/25 06:18 Completed Urinalysis and Microscopic Stat Lab 06/24/25 06:18 Completed VBG [Venous Blood Gas] Stat RT 06/24/25 06:46 Completed Medical Decision Narrative: In summary, this 65-year-old female with known history of seizures, dementia, diabetes presents to the emergency department today with breakthrough seizure. On initial evaluation patient is hemodynamically stable, afebrile, alert, at her mental baseline with no obvious focal neurologic deficits though she is nonverbal, no evidence of traumatic injury, cardiopulmonary and abdominal exam benign, no other acute abnormalities appreciated. Differential diagnosis includes but is not limited to breakthrough seizure, considered the possibility of patient having missed doses of medications though this is unlikely given she is managed at a custodial, considered the possibility of intracranial pathology, infectious etiology such as pneumonia or urinary tract infection though patient has clear lungs bilaterally and no fever, also considered the possibility of electrolyte abnormality or other metabolic derangement including hypoglycemia. FSBG 86 so patient is receiving dextrose containing IV fluids. Based on these concerns, I ordered serum labs, CT head, chest x-ray, urinalysis. Patient received dextrose containing fluids for treatment to maintain her blood sugar since at this time I want her to remain n.p.o. Labs personally reviewed demonstrate mild leukocytosis WBC 11.4 not significantly changed from 11 days ago, no anemia, thrombocythemia increased from prior, CMP with prerenal azotemia but patient is already receiving IV fluids, EtOH undetectable, UDS negative, UA negative for findings of infection. XR personally interpreted demonstrates no acute intrathoracic abnormality, see radiology read for final interpretation which is pending at the time of physician handoff. CT imaging personally interpreted demonstrate no acute intracranial pathology, see radiology read which is pending at the time of physician handoff. Patient handed off to Dr. Benavides in stable condition pending radiology reads. Anticipate patient will likely be able to be discharged back to [facility] with neurology follow-up. <Joseph Benavides, DO - Last Filed: 06/24/25 09:04> Jonnathan De Santiago was queried for this patient: No Vital Signs: 06/24/25 05:28 06/24/25 06:43 06/24/25 06:45 Temperature 98.4 F Temperature Source Tympanic Pulse Rate 104 H 60 Pulse Rate [Right] 83 Respiratory Rate 16 21 18 Blood Pressure 168/80 H 168/80 H Blood Pressure [Right Arm] 156/109 H Blood Pressure Mean [Right Arm] 124 02 Sat by Pulse Oximetry 96 95 95 Oxygen Delivery Method Room Air 06/24/25 07:01 06/24/25 07:31 06/24/25 07:33 Temperature Temperature Source Pulse Rate 62 61 68 Pulse Rate [Right] Respiratory Rate 16 17 11 L Blood Pressure 178/95 H 178/84 H 169/131 H Blood Pressure [Right Arm] Blood Pressure Mean [Right Arm] 02 Sat by Pulse Oximetry 96 97 84 L Oxygen Delivery Method 06/24/25 07:43 06/24/25 08:00 06/24/25 08:30 Temperature Temperature Source Pulse Rate 68 69 65 Pulse Rate [Right] Respiratory Rate 19 16 15 Blood Pressure 158/81 H 146/93 H 166/85 H Blood Pressure [Right Arm] Blood Pressure Mean [Right Arm] 02 Sat by Pulse Oximetry 92 L 93 L 94 L Oxygen Delivery Method Lab Data Lab Results 06/24/25 05:34: WBC 11.4 H, RBC 4.85, Hgb 13.9, Hct 41.9, MCV 86.4, MCH 28.7, MCHC 33.2, RDW 16.3, Plt Count 478 H, MPV 10.4, Neut % (Auto) 50.3, Lymph % (Auto) 35.6, Corson % (Auto) 7.5, Eos % (Auto) 3.1, Baso % (Auto) 3.2 H, Neut # (Auto) 5.7, Lymph # (Auto) 4.0, [place]on # (Auto) 0.9, Eos # (Auto) 0.4, Baso # (Auto) 0.4 H, Sodium 142, Potassium 4.2, Chloride 110 H, Carbon Dioxide 28, Anion Gap 8.2, BUN 27 H, Creatinine 0.90, Estimated Creat Clear 61, Estimated GFR 63, Est GFR ( Amer) 76, Glucose 99, Calcium 9.4, Total Bilirubin 0.3, AST 38 H, ALT 40, Alkaline Phosphatase 68, Total Protein 7.3, Albumin 4.1, Globulin 3.2, Albumin/Globulin Ratio 1.3, Plasma/Serum Alcohol < 10 06/24/25 06:18: Urine Color Yellow, Urine Appearance Clear, Urine pH 7.0, Ur Specific Rangely 1.015, Urine Protein Negative, Urine Glucose (UA) Negative, Urine Ketones Negative, Urine Blood Negative, Urine Nitrate Negative, Urine Bilirubin Negative, Urine Urobilinogen 0.2, Ur Leukocyte Esterase Negative, Urine RBC None, Urine WBC None, Ur Squamous Epith Cells Occasional, Urine Bacteria Trace, Urine Opiates Screen Negative, Urine Methadone Screen Negative, Ur Barbituates Screen Negative, Ur Phencyclidine Scrn Negative, Ur Amphetamines Screen Negative, U Benzodiazepines Scrn Negative, Urine Cocaine Screen Negative, U Marijuana (THC) Screen Negative 06/24/25 06:46: VBG pH 7.36, VBG pCO2 43.1, VBG pO2 35.5, VBG HCO3 23.8, VBG Total CO2 25.1, VBG O2 Saturation 68.2, VBG Base Excess -1.6, VBG Lactic Acid 1.2 Orders (Tests/Meds): ED MEDICATIONS Generic Name Dose Route Start Last Admin Trade Name Freq PRN Reason Stop Dose Admin Dextrose/Sodium Chloride 1,000 mls @ 200 mls/hr 06/24/25 06:20 06/24/25 06:20 Dextrose 5%-0.9% Nacl Iv Soln IV 07/24/25 06:19 200 mls/hr .Q5H KARISSA Administration ORDERS Category Date Time Status CT head/brain wo con Stat Cat Scan 06/24/25 06:06 Completed CXR --portable [XR chest portable] Stat Exams 06/24/25 06:06 Completed CBC w/Auto Diff [Complete Blood Count Auto Diff] Stat Lab 06/24/25 05:34 Completed CMP [Comprehensive Metabolic Panel] Stat Lab 06/24/25 05:34 Completed Ethanol [Ethyl Alcohol] Stat Lab 06/24/25 05:34 Completed UDS [Drug Screen,Urine] Stat Lab 06/24/25 06:18 Completed Urinalysis and Microscopic Stat Lab 06/24/25 06:18 Completed VBG [Venous Blood Gas] Stat RT 06/24/25 06:46 Completed Medical Decision Narrative: In summary, this 65-year-old female with known history of seizures, dementia, diabetes presents to the emergency department today with breakthrough seizure. On initial evaluation patient is hemodynamically stable, afebrile, alert, at her mental baseline with no obvious focal neurologic deficits though she is nonverbal, no evidence of traumatic injury, cardiopulmonary and abdominal exam benign, no other acute abnormalities appreciated. Differential diagnosis includes but is not limited to breakthrough seizure, considered the possibility of patient having missed doses of medications though this is unlikely given she is managed at a custodial, considered the possibility of intracranial pathology, infectious etiology such as pneumonia or urinary tract infection though patient has clear lungs bilaterally and no fever, also considered the possibility of electrolyte abnormality or other metabolic derangement including hypoglycemia. FSBG 86 so patient is receiving dextrose containing IV fluids. Based on these concerns, I ordered serum labs, CT head, chest x-ray, urinalysis. Patient received dextrose containing fluids for treatment to maintain her blood sugar since at this time I want her to remain n.p.o. Labs personally reviewed demonstrate mild leukocytosis WBC 11.4 not significantly changed from 11 days ago, no anemia, thrombocythemia increased from prior, CMP with prerenal azotemia but patient is already receiving IV fluids, EtOH undetectable, UDS negative, UA negative for findings of infection. XR personally interpreted demonstrates no acute intrathoracic abnormality, see radiology read for final interpretation which is pending at the time of physician handoff. CT imaging personally interpreted demonstrate no acute intracranial pathology, see radiology read which is pending at the time of physician handoff. Patient handed off to Dr. Benavides in stable condition pending radiology reads. Anticipate patient will likely be able to be discharged back to [facility] with neurology follow-up. Joseph Benavides DO At the time of shift change this patient's CT scan of her head and chest x-ray was pending. Chest x-ray was interpreted by radiology and demonstrated reticulonodular opacities. The patient does not have a clinical presentation consistent with overt infection. CT scan of the head resulted showing no evidence of intracranial hemorrhage. Patient remained hemodynamically stable while in the emergency department under my care. We did transition her from a D5 drip to oral or juice. I did call and speak with the nursing staff at her custodial. They state that they have been struggling with compliance with the divalproex sprinkles and that even when mixing them with food items such as applesauce or pudding they often find that she spits the medication out. I think this is the likely cause of her frequent seizures over the last 10 days. I have discussed with the custodial staff the possibility of switching her from divalproex to valproic acid. They state that Dr. Castle will be coming on Wednesday to evaluate the patient. Due to the fact that he has cared for for a long period of time we will allow him to be the one to make medication adjustments. Patient was discharged to custodial in stable condition. Critical Care <Eddy Kamara MD - Last Filed: 06/24/25 07:00> Critical Care Time Critical Care Time: No
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
[2025-06-24 06:13] LABS: Hematocrit 41.9 % (37.0-47.0); Hemoglobin 13.9 g/dL (12.2-16.2); Immature Granulocytes % 0.3 %; Mean Corpuscular HGB Conc 33.2 g/dL (31.8-35.4); Mean Corpuscular Hemoglobin 28.7 pg (27.0-31.2); Mean Corpuscular Volume 86.4 fl (81-99); Nucleated Red Blood Cells % 0 %; Platelet Count 478 K/mm3 (142-424); Red Blood Count 4.85 M/mm3 (4.20-5.40); Red Cell Distribution Width-SD 50.9 fL; White Blood Count 11.4 K/mm3 (4.8-10.8)
[2025-06-24 06:16] LABS: Albumin Level 4.1 g/dl (3.5-5.0); Chloride 110 mmol/L (98-107); Potassium 4.2 mmoL/L (3.5-5.1); Sodium 142 mmol/L (136-145)
[2025-06-24 06:18] LABS: Blood Urea Nitrogen 27 mg/dl (7-17); Creatinine Clearance Estimated 61 mL/min (50-200); Creatinine,Serum 0.90 mg/dl (0.52-1.04); Estimated Glomerular Filt Rate 63 ml/min (>60); GFR (African American) 76 ML/MIN (>60)
[2025-06-24 06:19] LABS: Alanine Aminotransferase 40 U/L (12-78); Albumin/Globulin Ratio 1.3 (1.1-1.8); Alkaline Phosphatase 68 U/L (38-126); Anion Gap 8.2 mEq/L (5-15); Aspartate Amino Transferase 38 U/L (14-36); Bilirubin,Total 0.3 mg/dl (0.2-1.3); Calcium 9.4 mg/dl (8.4-10.2); Carbon Dioxide 28 mmol/L (22.0-30.0); Globulin 3.2 g/dL (1.3-3.2); Glucose 99 mg/dl (74-100); Total Protein,Serum 7.3 g/dl (6.3-8.2)
[2025-06-24 06:23] LABS: Bilirubin,Urine Negative (Negative); Color,Urine YELLOW (Yellow); Glucose,Urine (UA) Negative (Negative); Ketones,Urine Negative (Negative); Leukocyte Esterase,Urine Negative (Negative); Microscopic, Urine URINE MICROSCOPIC (MICROSCOPIC); PH,Urine 7.0 (5.0-8.5); Protein,Urine Negative (Negative); Specific Gravity, Urine 1.015 (1.005-1.030); Urobilinogen,Urine 0.2 EU/dl (0.2)
[2025-06-24 06:31] LABS: Bacteria,Urine Trace /lpf; Squamous Epithelial Cell,Urine Occasional #/hpf (0-5)
[2025-06-24 06:34] LABS: Barbiturates Screen,Urine Negative ng/ml (<200)
[2025-06-24 06:35] LABS: Amphetamine/Metha Screen,Urine Negative ng/ml (<1000)
[2025-06-24 06:36] LABS: Methadone Screen,Urine Negative ng/ml (<300)
[2025-06-24 06:37] LABS: Opiate Screen,Urine Negative ng/ml (<300)
[2025-06-24 06:38] LABS: Phencyclidine Screen,Urine Negative ng/ml (<25)
--- NOTE | 2025-06-24 06:48 | PC.NURSE ---
Spoke to respiratory r/t VBG sent to lab
[2025-06-24 06:56] LABS: Lactate Venous 1.2 mmol/L (0.4-2.0); VBG HCO3 23.8 mmol/L (23-30); VBG PCO2 43.1 mmol/L (35-51); VBG PH 7.36 mmol/L (7.31-7.41); VBG PO2 35.5 mmol/L (28-40)
[2025-06-24 07:12] LABS: Benzodiazepines Screen,Urine Negative ng/ml (<200)
--- NOTE | 2025-06-24 07:43 | PC.NURSE ---
BSFS 98
--- NOTE | 2025-06-24 08:16 | PC.NURSE ---
spoke to provider regarding patients BG it was 98 he said we could stop the D5 and offer PO fluids
--- NOTE | 2025-06-24 09:30 | PC.NURSE ---
report given to tyron
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
--- NOTE | 2025-06-24 12:09 | PC.NURSE ---
Jonathan from EMS states the other truck is clear and on their way to transport the pt
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
--- NOTE | 2025-06-24 12:41 | PC.NURSE ---
patient brief changed had bm and urine
== END 2025-06-24 12:41 | disposition home or self-care (01) ==
PROVIDERS: Emergency Provider Emergency Medicine
DX: G40.909 Epilepsy, unspecified, not intractable, without status epilepticus (principal); E78.5 Hyperlipidemia, unspecified; I12.9 Hypertensive chronic kidney disease with stage 1 through stage 4 chronic kidney disease, or unspecified chronic kidney disease; N18.9 Chronic kidney disease, unspecified
CPT/HCPCS: 70450; 71045; 80053; 80307; 80320; 81001; 82803; 85025; 96360; 96361; 99284; 99285; J7042

== ENCOUNTER 2025-07-02 08:14 | Emergency (ER) | payer MEDICARE, SELFPAY ==
[2025-07-02 07:55] VITALS: BP 148/92; PULSE 63; RESP 17; TEMP 36.8; O2SAT 96; BMI 29.0
[2025-07-02 08:19] VITALS: BP 148/92; PULSE 63; RESP 16; O2SAT 96
--- NOTE | 2025-07-02 08:19 | CT_ITS ---
PROCEDURE INFORMATION: Exam: CT Cervical Spine Without Contrast Exam date and time: 07/02/2025 8:33 AM Age: 65 years old Clinical indication: Injury or trauma; Fall; Blunt trauma; Additional info: Fall, head trauma TECHNIQUE: Imaging protocol: Computed tomography of the cervical spine without contrast. Radiation optimization: All CT scans at this facility use at least one of these dose optimization techniques: automated exposure control; mA and/or kV adjustment per patient size (includes targeted exams where dose is matched to clinical indication); or iterative reconstruction. COMPARISON: CT CERVICAL SPINE WO CON 05/29/2025 11:28 PM FINDINGS: Bones/joints: No acute fracture. There is straightening of cervical lordosis. There is grade 1 anterolisthesis of C7 on T1, T1 on T2, and T2 on T3. Otherwise alignment is maintained. There is moderate to advanced multilevel degenerative disc disease. There is mild to moderate multilevel spinal canal stenosis secondary to disc osteophyte bulging. Lungs: Lung apices are normal. Soft tissues: Unremarkable. IMPRESSION: No acute cervical spine fracture.
--- NOTE | 2025-07-02 08:19 | CT_ITS ---
PROCEDURE INFORMATION: Exam: CT Head Without Contrast Exam date and time: 07/02/2025 8:31 AM Age: 65 years old Clinical indication: Other: Sz; Additional info: Seizure, head trauma TECHNIQUE: Imaging protocol: Computed tomography of the head without contrast. Radiation optimization: All CT scans at this facility use at least one of these dose optimization techniques: automated exposure control; mA and/or kV adjustment per patient size (includes targeted exams where dose is matched to clinical indication); or iterative reconstruction. COMPARISON: CT HEAD/BRAIN WO CON 06/24/2025 6:28 AM FINDINGS: Brain: There is disproportionate temporal lobe atrophy again identified. There is mild small vessel disease. There is no evidence of acute parenchymal hemorrhage, extra-axial collection, or acute infarction. There is no mass effect, midline shift, or downward herniation. Cerebral ventricles: No ventriculomegaly. Paranasal sinuses: Visualized sinuses are unremarkable. No fluid levels. Mastoid air cells: Visualized mastoid air cells are well aerated. Bones: Unremarkable. No acute fracture. Soft tissues: Unremarkable. IMPRESSION: 1. No evidence of acute intracranial process. 2. Disproportionate temporal lobe atrophy. 3. Mild small vessel disease.
--- NOTE | 2025-07-02 08:20 | PC.NURSE ---
Dr Islas at bedside
--- NOTE | 2025-07-02 08:21 | PC.NURSE ---
seizure pads placed to ER stretcher.
--- NOTE | 2025-07-02 08:21 | HMH.EDGENADL ---
Discharge Plan Disposition Patient Disposition: Home, Self-Care Prescriptions Prescriptions: No Action acetaminophen 500 mg tablet 500 mg PO Q6H PRN (Reason: Pain (Scale Score 1-3)) mesalamine 400 mg capsule (with del rel tablets) 800 mg PO TID atorvastatin 20 mg tablet 20 mg PO QHS divalproex [Depakote Sprinkles] 125 mg capsule, delayed rel sprinkle 250 mg PO TID fluoxetine 10 mg capsule 10 mg PO DAILY aripiprazole [Abilify] 2 mg tablet 2 mg PO QAM melatonin 5 mg capsule 5 mg PO QHS Qty: 90 0RF memantine 10 mg tablet 10 mg PO BID Qty: 180 3RF propranolol 10 mg tablet 10 mg PO TID Qty: 270 3RF mirtazapine 15 mg Tablet 15 mg PO DAILY Activity Restrictions/Add. Instructions Additional Instructions/Restrictions: I encourage if she develops any new or worsening symptoms, or if you become concerned for her health for any reason, return to the emergency department for evaluation Regina to follow closely with her primary care provider, Dr. Castle, for her seizures as she may need to be on different medications. Clinical Impressions Clinical Impression: Seizure Instructions Patient Instructions: DI for Seizure Disorder -- Adult, DI for Seizure (Not Epilepsy/Seizure Disorder), DI for Seizure Disorder -- Child Print Language Print Language: Peruvian Discharge ED Provider: Alexey Islas Adult HPI General Chief complaint: Seizure Stated complaint: seizure Time Seen by Provider: 07/02/25 08:19 Mode of Arrival: EMS Source of Information: EMS Limitations: Dementia History of Present Illness HPI narrative: Regina Josue is a 65 year old female with a history of type 2 diabetes, seizures on Depakote sprinkles, dementia, hypertension, hyperlipidemia who presents to the emergency department from [facility] for seizure and head trauma. History is provided by EMS as patient at baseline is unable to provide any details of her history. Reportedly, patient had gotten up and walked to the nurses station this morning and had a seizure of unknown duration. They state that she did fall and hit her head. States that she has returned to her baseline, which is alert and essentially nonverbal. She will occasionally answer yes to questions. No seizure-like activity with EMS. Fingerstick blood glucose 112. They are unsure if patient has been compliant with her seizure medications. She is not on any blood thinning medications. Patient did not have any bruising, hematomas, tenderness to the cervical spine, back with stable pelvis per EMS. Vital signs stable and route. Related Data Home Medications ?Medication ?Instructions ?Recorded ?Confirmed divalproex 125 mg capsule,delayed 250 mg PO TID 01/09/25 07/02/25 release sprinkle (Depakote Sprinkles) fluoxetine 10 mg capsule 10 mg PO DAILY 02/21/25 07/02/25 acetaminophen 500 mg tablet 500 mg PO Q6H PRN Pain (Scale 03/27/25 07/02/25 Score 1-3) aripiprazole 2 mg tablet (Abilify) 2 mg PO QAM 03/27/25 07/02/25 atorvastatin 20 mg tablet 20 mg PO QHS 03/27/25 07/02/25 mesalamine 400 mg capsule (with 800 mg PO TID 03/27/25 07/02/25 delayed release tablets inside) mirtazapine 15 mg tablet 15 mg PO DAILY 07/02/25 07/02/25 Previous Rx's ?Medication ?Instructions ?Recorded melatonin 5 mg capsule 5 mg PO QHS #90 caps 07/20/24 memantine 10 mg tablet 10 mg PO BID #180 tabs 07/20/24 propranolol 10 mg tablet 10 mg PO TID #270 tabs 07/20/24 Allergies Allergy/AdvReac Type Severity Reaction Status Date / Time iodine Allergy Mild Verified 05/02/25 09:16 Sulfa (Sulfonamide Allergy Mild Verified 05/02/25 09:16 Antibiotics) [facility] Disclaimer: The information contained in this section may have been updated after the patient was seen, as this information can be updated by other users. Medical History Chronic kidney disease Unable to care for self Impaired functional mobility, balance, and endurance Abdominal aortic aneurysm (AAA) History of vaginal delivery x 2 Abnormal colonoscopy July 2022, polyps x 3 Benign colonic polyp Dementia Seizure disorder Crohn's disease Diabetes mellitus, type II Hyperlipidemia Hypertension Surgical History History of total knee replacement right History of cholecystectomy Social History Smoking Status: Never smoker alcohol intake: current substance use type: denies use current occupational status: retired Travel in the last 8 weeks?: None marital status: Have you lived/traveled outside US in past 30 days?: No Contact w/someone who lives/traveled outside US past 30 days?: No Exposure to someone with infectious disease in past 14 days?: No Do you have a fever (greater than 100.4 F or 38 C)?: No Have you tested positive for COVID-19?: No Exposed to someone with COVID-19 in past 14 days?: No Do you have a sore throat?: No Do you have a cough?: No Do you have any weakness?: No Do you have any diarrhea?: No Are you experiencing any unusual bleeding?: No Do you have any muscle aches/pain?: No Do you have any abdominal pain?: No Are you experiencing loss of taste or smell?: No Other Medical History Have you received the Pneumonia Vaccine: Yes (08/02/18) ROS Obtained: Yes Systems reviewed as appropriate & no additional complaints except as documented Physical Exam General General appearance: alert and in no apparent distress Head Head exam: atraumatic Eye Eye exam: Present normal appearance ENT ENT exam: Present normal external ear exam Neck Neck exam: Present full ROM Chest Chest inspection: Present symmetric chest wall rise Respiratory Respiratory exam: Present normal lung sounds bilaterally; Absent respiratory distress, wheezes or stridor Cardiovascular Cardiovascular exam: Present regular rate and normal rhythm Abdominal Exam Abdominal exam: Present soft; Absent tenderness or guarding Extremities Exam Extremities exam: Present normal inspection Back Exam Back exam: Present normal inspection and tenderness; Absent vertebral tenderness Neurological Exam Neurological exam: Present alert and other (Intermittently follows commands. Nonverbal at this time. GCS of 13-14) Skin Skin exam: Present warm and dry Medical Decision Making Medical Records Screening: Per USPSTF and CDC recommendations, given the prevalence of disease in our region, it is our hospital?s policy to screen for HIV and viral Hepatitis for all patients aged 18 and over and those with ongoing risk factors. Jonnathan Inquiry Pt receiving controlled substance: No Vital Signs: 07/02/25 07:55 07/02/25 08:19 07/02/25 09:02 Temperature 98.2 F Temperature Source Oral Pulse Rate 63 59 L Pulse Rate [Right] 63 Respiratory Rate 17 16 16 Blood Pressure 148/92 H 155/109 H Blood Pressure [Right Arm] 148/92 H Blood Pressure Mean 125 Blood Pressure Mean [Right Arm] 110 Blood Pressure Source [Right Arm] Automatic Cuff Blood Pressure Position [Right Arm] Supine 02 Sat by Pulse Oximetry 96 96 99 Oxygen Delivery Method Room Air Room Air 07/02/25 09:32 07/02/25 10:01 Temperature Temperature Source Pulse Rate 58 L 56 L Pulse Rate [Right] Respiratory Rate 13 18 Blood Pressure 212/192 H 177/157 H Blood Pressure [Right Arm] Blood Pressure Mean 197 163 Blood Pressure Mean [Right Arm] Blood Pressure Source [Right Arm] Blood Pressure Position [Right Arm] 02 Sat by Pulse Oximetry 98 98 Oxygen Delivery Method Lab Data Lab Results 07/02/25 08:25: WBC 8.4, RBC 4.89, Hgb 13.9, Hct 42.0, MCV 85.9, MCH 28.4, MCHC 33.1, RDW 17.1, Plt Count 506 H, MPV 11.3 H, Neut % (Auto) 51.0, Lymph % (Auto) 34.5, Gregg % (Auto) 7.4, Eos % (Auto) 3.7, Baso % (Auto) 3.2 H, Neut # (Auto) 4.3, Lymph # (Auto) 2.9, Gregg # (Auto) 0.6, Eos # (Auto) 0.3, Baso # (Auto) 0.3 H, VBG pH 7.38, VBG pCO2 45.3, VBG pO2 35.1, VBG HCO3 26.0, VBG Total CO2 27.4 H, VBG O2 Saturation 68.3, VBG Base Excess 0.8, VBG Lactic Acid 2.7 H, Sodium 142, Potassium 5.8 H, Chloride 109 H, Carbon Dioxide 26, Anion Gap 12.8, BUN 21 H, Creatinine 0.80, Estimated GFR 72, Est GFR ( Amer) 87, Glucose 96, Calcium 9.3, Magnesium 2.0, Total Bilirubin 1.2, AST 51 H, ALT 37, Alkaline Phosphatase 33 L, Total Creatine Kinase 61, Total Protein 7.7, Albumin 4.3, Globulin 3.4 H, Albumin/Globulin Ratio 1.3 07/02/25 09:10: Urine Color Yellow, Urine Appearance Clear, Urine pH 6.5, Ur Specific [place] 1.015, Urine Protein Negative, Urine Glucose (UA) Negative, Urine Ketones Negative, Urine Blood Negative, Urine Nitrate Negative, Urine Bilirubin Negative, Urine Urobilinogen 0.2, Ur Leukocyte Esterase Negative, Urine RBC None, Urine WBC Occasional, Ur Squamous Epith Cells Occasional, Urine Bacteria Trace 07/02/25 10:20: Potassium 4.1 D 07/02/25 08:25 07/02/25 10:20 Orders (Tests/Meds): ED MEDICATIONS Discontinued Medications Generic Name Dose Route Start Last Admin Trade Name Freq PRN Reason Stop Dose Admin Lactated Ringer's 1,000 mls @ 999 mls/hr 07/02/25 08:40 07/02/25 10:04 Lactated Ringer's 1000 Ml Bag IV 07/02/25 09:40 Infused .Q1H1M ONE Infusion ORDERS Category Date Time Status CT cervical spine wo con Stat Cat Scan 07/02/25 08:[address] head/brain wo con Stat Cat Scan 07/02/25 08:19 Completed CXR --portable [XR chest portable] Stat Exams 07/02/25 08:33 Completed CBC w/Auto Diff [Complete Blood Count Auto Diff] Stat Lab 07/02/25 08:25 Completed CK [Creatine Kinase] Stat Lab 07/02/25 08:25 Completed CMP [Comprehensive Metabolic Panel] Stat Lab 07/02/25 08:25 Completed Magnesium Stat Lab 07/02/25 08:25 Completed Potassium Stat Lab 07/02/25 10:20 Completed UA [Urinalysis and Microscopic] Stat Lab 07/02/25 09:10 Completed VBG [Venous Blood Gas] Stat RT 07/02/25 08:25 Completed ECG Data Tracing #1: I reviewed this ECG and interpreted as documented below: Sinus bradycardia with a ventricular rate of [address] elevation or depression. No peaked T waves. QTc of 413 Medical Decision Narrative: Regina Josue is a 65 year old female with a history of type 2 diabetes, seizures on Depakote sprinkles, dementia, hypertension, hyperlipidemia who presents to the emergency department from [facility] for seizure and head trauma. History is provided by EMS as patient at baseline is unable to provide any details of her history. Reportedly, patient had gotten up and walked to the nurses station this morning and had a seizure of unknown duration. They state that she did fall and hit her head. States that she has returned to her baseline, which is alert and essentially nonverbal. She will occasionally answer yes to questions. No seizure-like activity with EMS. Fingerstick blood glucose 112. They are unsure if patient has been compliant with her seizure medications. She is not on any blood thinning medications. Patient did not have any bruising, hematomas, tenderness to the cervical spine, back with stable pelvis per EMS. Vital signs stable and route. On arrival, patient is normotensive, heart rate within normal limits, breathing comfortably on room air with appropriate oxygen saturation. Afebrile. Physical exam, as stated above, reveals an overall well nontoxic-appearing female in no distress. She is alert, GCS 13 14 due to intermittently giving verbal responses, such as yes and intermittently following commands. No focal neurological deficits. Abdomen soft, nontender nondistended. Cardiopulmonary exam reveals no murmurs, wheezing, rales or rhonchi. She has no midline spinal tenderness or step-offs. No signs of head trauma. Pupils equal round and reactive to light. She is noted to have a resting tremor versus myoclonus in the upper extremities, worse on the right than the left, however I am told that this is normal for the patient per EMS, who is familiar with this patient Differential diagnosis includes, but is not limited to: Intracranial hemorrhage, cervical spine fracture, breakthrough seizure, provoked seizure, pneumonia, urinary tract affection, electrolyte derangement, thyroid derangement, medication noncompliance, among others. The most morbid conditions were considered and workup was based on these. Previous records were reviewed. Patient has been seen in the emergency department several times for similar presentations. On 06/24, patient was brought to the emergency department for a seizure. Reportedly, patient was going to be evaluated by primary care physician on the after discharge due to issues with compliance with her Depakote, however I do not see a note from her PCP on the . EMS is not sure if she has been compliant with her Depakote. Workup in the Emergency Department included: CT head without contrast, CT cervical spine without contrast, VBG with lactate, CBC, CMP, magnesium level, CK, urinalysis, chest x-ray, TSH/free T4 Chest x-ray interpreted by me personally. No focal consolidation, no pneumothorax, no widened mediastinum, no enlargement of the cardiac silhouette. Unremarkable chest x-ray. See radiology report for details. CT head interpreted by me personally. No intracranial hemorrhage, mass or midline shift. There is a fair amount of volume loss with ventricular ex-vacuo. See final radiology report for details. No cervical spine fractures or malalignment are appreciated. Laboratory studies showed no leukocytosis (improving to 8.4 from 11.4 on 06/24), platelets chronically elevated at 506, VBG with mildly elevated lactate of 2.7 (will administer 1 L lactated ringer, consistent with possible seizure). pH of 7.38. Patient is hyperkalemic with potassium of 5.8 (previously was 4.2), sodium normal at 142. No JENNIFER. BUN is chronically mildly elevated at 21. Mildly elevated AST of 51 (near baseline), bilirubin normal at 1.2. Liver enzymes otherwise within normal limits. CK normal at 61. EKG showed no STEMI. No peaked T waves. See interpreted above Urinalysis without evidence of blood or infection. Patient's repeat potassium is normal at 4.1. Given patient's unremarkable workup here in the setting of known seizure disorder with return to baseline, is felt that she is appropriate for discharge at this time back to [facility]. Critical Care Critical Care Time Critical Care Time: No
--- OUTSIDE RECORDS SUMMARY | 2025-07-02 08:30 | XMS_ITS | Clinical Summary ---
Author Organization [facility] Address [address] [place] [address] Phone Care Team Providers Care Rn Invasive Name Role Phone Unavailable Primary Care Provider [...] to complete this topic Insurance OLEGARIO Richard [id number] MEDICARE [place] PART A AND B
--- OUTSIDE RECORDS SUMMARY | 2025-07-02 08:30 | XMS_ITS | Clinical Summary ---
Author Organization [facility] Address [address] [place] [id number] Care Team Providers Care Hand Cigar Making Supervisor Name Role Phone None, Physician Primary Care [...] patient's age to complete this topic Insurance [facility] MELIZA KENDRICK OLEGARIO Leo [id number] [place] [address] [employer] Care Teams Hand Cigar Making Supervisor Relationship Specialty Start Date End Date None, Physician PCP - General 02/03/25
[2025-07-02 08:31] LABS: VBG HCO3 26.0 mmol/L (23-30); VBG PCO2 45.3 mmol/L (35-51); VBG PH 7.38 mmol/L (7.31-7.41); VBG PO2 35.1 mmol/L (28-40)
[2025-07-02 08:33] LABS: Hematocrit 42.0 % (37.0-47.0); Hemoglobin 13.9 g/dL (12.2-16.2); Immature Granulocytes % 0.2 %; Lactate Venous 2.7 mmol/L (0.4-2.0); Mean Corpuscular HGB Conc 33.1 g/dL (31.8-35.4); Mean Corpuscular Hemoglobin 28.4 pg (27.0-31.2); Mean Corpuscular Volume 85.9 fl (81-99); Nucleated Red Blood Cells % 0 %; Platelet Count 506 K/mm3 (142-424); Red Blood Count 4.89 M/mm3 (4.20-5.40); Red Cell Distribution Width-SD 51.1 fL; White Blood Count 8.4 K/mm3 (4.8-10.8)
--- NOTE | 2025-07-02 08:33 | XR_ITS ---
PROCEDURE INFORMATION: Exam: XR Chest Exam date and time: 07/02/2025 8:32 AM Age: 65 years old Clinical indication: Other: Sz; Additional info: Seizure TECHNIQUE: Imaging protocol: Radiologic exam of the chest. Views: 1 view. COMPARISON: CR XR CHEST PORTABLE 06/24/2025 6:32 AM FINDINGS: Lungs: Unremarkable. No consolidation. Pleural spaces: Unremarkable. No pleural effusion. No pneumothorax. Heart/Mediastinum: Unremarkable. No cardiomegaly. Bones/joints: Unremarkable. IMPRESSION: No acute findings.
[2025-07-02 08:42] LABS: Albumin Level 4.3 g/dl (3.5-5.0); Chloride 109 mmol/L (98-107); Sodium 142 mmol/L (136-145)
[2025-07-02 08:43] LABS: Potassium 5.8 mmoL/L (3.5-5.1)
[2025-07-02 08:45] LABS: Alanine Aminotransferase 37 U/L (12-78); Albumin/Globulin Ratio 1.3 (1.1-1.8); Alkaline Phosphatase 33 U/L (38-126); Anion Gap 12.8 mEq/L (5-15); Aspartate Amino Transferase 51 U/L (14-36); Bilirubin,Total 1.2 mg/dl (0.2-1.3); Blood Urea Nitrogen 21 mg/dl (7-17); Calcium 9.3 mg/dl (8.4-10.2); Carbon Dioxide 26 mmol/L (22.0-30.0); Creatine Kinase 61 U/L (30-135); Creatinine,Serum 0.80 mg/dl (0.52-1.04); Estimated Glomerular Filt Rate 72 ml/min (>60); GFR (African American) 87 ML/MIN (>60); Globulin 3.4 g/dL (1.3-3.2); Glucose 96 mg/dl (74-100); Total Protein,Serum 7.7 g/dl (6.3-8.2)
[2025-07-02 08:46] LABS: Magnesium 2.0 mg/dl (1.6-2.3)
[2025-07-02] MEDS: LACTATED RINGERS 1000ML 1,000 ML 999 ML IV (08:52)
--- NOTE | 2025-07-02 08:57 | ECG_ITS ---
APPROVED REPORT Exam: Resting ECG HR:56 bpm ECG Measurements Heart Rate 56 AXES DE 162 P 45 QRSd 103 QRS 31 QT 421 T 30 QTc 413 Conclusion SINUS BRADYCARDIA BORDERLINE ECG UNCONFIRMED REPORT Electronically signed by : JANIS BARRAGAN, 07/02/2025 23:10:01
[2025-07-02 09:02] VITALS: BP 155/109; PULSE 59; RESP 16; O2SAT 99
--- NOTE | 2025-07-02 09:16 | PC.NURSE ---
partial bed bath given to large BM. New chux and brief placed. Cath UA sample collected and sent to lab. Pt tolerated well.
[2025-07-02 09:19] LABS: Microscopic, Urine URINE MICROSCOPIC (MICROSCOPIC)
[2025-07-02 09:24] LABS: Bilirubin,Urine Negative (Negative); Color,Urine YELLOW (Yellow); Glucose,Urine (UA) Negative (Negative); Ketones,Urine Negative (Negative); Leukocyte Esterase,Urine Negative (Negative); PH,Urine 6.5 (5.0-8.5); Protein,Urine Negative (Negative); Specific Gravity, Urine 1.015 (1.005-1.030); Urobilinogen,Urine 0.2 EU/dl (0.2)
[2025-07-02 09:32] VITALS: BP 212/192; PULSE 58; RESP 13; O2SAT 98
[2025-07-02 09:56] LABS: Bacteria,Urine Trace /lpf; Squamous Epithelial Cell,Urine Occasional #/hpf (0-5); WBC,Urine Occasional #/hpf (0-3)
[2025-07-02 10:01] VITALS: BP 177/157; PULSE 56; RESP 18; O2SAT 98
[2025-07-02 10:46] LABS: Potassium 4.1 mmoL/L (3.5-5.1)
[2025-07-02 11:00] VITALS: BP 138/88; PULSE 62; RESP 16; TEMP 36.7; O2SAT 98
--- NOTE | 2025-07-02 11:08 | PC.NURSE ---
called report to [facility].
--- NOTE | 2025-07-02 11:15 | PC.NURSE ---
Called EMS to make them aware this pt is ready to go back to [place]
--- NOTE | 2025-07-02 11:53 | PC.NURSE ---
called EMS to check on status of transfer. Stations states they left 5 min ago .
[2025-07-02 12:33] LABS: Reflex Lactic Add Lactic Reflex
[2025-07-03 17:08] LABS: Hemoglobin A1C 5.8 % (4.0-6.0)
== END 2025-07-02 11:55 | disposition home or self-care (01) ==
PROVIDERS: Nurse Practitioner Family; Emergency Provider Student in an Organized Health Care Education/Training Program
DX: R56.9 Unspecified convulsions (principal); E11.9 Type 2 diabetes mellitus without complications; E78.5 Hyperlipidemia, unspecified; I10 Essential (primary) hypertension
CPT/HCPCS: 70450; 71045; 72125; 80053; 81001; 82550; 82803; 83036; 83735; 84132; 85025; 93005; 96360; 99284; 99285; J7120

== ENCOUNTER 2025-07-04 06:48 | Outpatient (CLI) | payer MEDICARE, SELFPAY ==
[2025-07-04 14:31] LABS: Cholesterol 164 mg/dl (140-200); HDL Cholesterol 59 mg/dl (40-60); Triglycerides 118 mg/dl (30-150)
[2025-07-04 14:46] LABS: Valproic Acid, (Depakene) 58.7 ug/ml (50-100)
== END 2025-07-04 23:59 | disposition home or self-care (01) ==
PROVIDERS: PCP Nurse Practitioner Family; Visit Provider Nurse Practitioner Family
DX: E78.5 Hyperlipidemia, unspecified (principal)
CPT/HCPCS: 36415; 80061; 80164

== ENCOUNTER 2025-09-05 04:16 | Emergency (ER) | payer MEDICARE, SELFPAY ==
[2025-09-05] VITALS (15 sets, daily range): BP systolic 124–180; BP diastolic 71–93; PULSE 67–81; RESP 12–20; TEMP 37; O2SAT 95–100; BMI 30.6
--- NOTE | 2025-09-05 04:29 | HMH.EDGENADL ---
Discharge Plan Disposition Patient Disposition: Xfer SNF Condition: Good Prescriptions Prescriptions: No Action acetaminophen 500 mg tablet 500 mg PO Q6H PRN (Reason: Pain (Scale Score 1-3)) mesalamine 400 mg capsule (with del rel tablets) 800 mg PO TID atorvastatin 20 mg tablet 20 mg PO QHS divalproex [Depakote Sprinkles] 125 mg capsule, delayed rel sprinkle 250 mg PO TID fluoxetine 10 mg capsule 10 mg PO DAILY aripiprazole [Abilify] 2 mg tablet 2 mg PO QHS melatonin 5 mg capsule 5 mg PO QHS Qty: 90 0RF memantine 10 mg tablet 10 mg PO BID Qty: 180 3RF propranolol 10 mg tablet 10 mg PO TID Qty: 270 3RF acetaminophen 500 mg tablet 500 mg PO BID Qty: 60 0RF mirtazapine 15 mg Tablet 15 mg PO DAILY Referrals Follow up/Referrals: Provider,Referral, [Primary Care Provider, Medical] - See instructions Danielito Castle MD [Staff Physician, Family Practice] - See instructions Referral Note: Please consider adjusting patient's seizure medications, multiple visits to the ER in end of summer/fall for breakthrough seizures Activity Restrictions/Add. Instructions Additional Instructions/Restrictions: Regina was evaluated in the ER and is believed to be appropriate for discharge at this time. Continue all home medications as prescribed, make sure she receives her antiseizure medication (divalproex). Please have the primary care physician reevaluate her and consider adjusting her antiseizure medication since she has had multiple visits to the ER for seizure activity in the last few months. Return to the ER with new, worsening, or otherwise concerning symptoms. Clinical Impressions Clinical Impression: Seizure-like activity, Prerenal azotemia, Acidosis, lactic Instructions Patient Instructions: DI for Seizure Disorder in Adults, DI for Seizure (Not Epilepsy/Seizure Disorder), DI for Seizure Disorder in Child Print Language Print Language: Estonian Discharge ED Provider: Eddy Kamara Adult HPI General Chief complaint: Seizure Stated complaint: Seizure Time Seen by Provider: 09/05/25 04:19 History of Present Illness HPI narrative: 65-year-old female from [facility] with history of type 2 diabetes, seizures on Depakote, dementia, hypertension, hyperlipidemia, Crohn's, CKD presents to the ER via EMS from intermediate concerned for possible seizure-like activity. Reportedly they were in the room with the patient assisting her while standing at bedside when patient started to have full body seizure-like activity that lasted approximately 45 seconds, they lowered her to the floor. She did not fall or strike her head. [facility] did not administer any seizure abortive medications, seizure spontaneously aborted. After the seizure patient reportedly was somewhat sleepy but upon EMS arrival, EMS reports she was back to her mental baseline. EMS is very familiar with this patient and states she is at her mental baseline, she also has tremors in her upper extremities which are at baseline. [facility] reports patient's mental baseline is occasionally oriented to self and occasionally answering yes/no questions but not consistently. Review of records demonstrates patient has been seen multiple times in the ER for breakthrough seizures. Most recent family medicine note from the intermediate demonstrates patient had a therapeutic valproic acid level, patient was not giving verbal responses when family medicine evaluated her on 08/08/2025. According to nursing facility no recent illness. EMS reports blood glucose 123 during transportation. Related Data Home Medications ?Medication ?Instructions ?Recorded ?Confirmed divalproex 125 mg capsule,delayed 250 mg PO TID 01/09/25 08/08/25 release sprinkle (Depakote Sprinkles) fluoxetine 10 mg capsule 10 mg PO DAILY 02/21/25 08/08/25 acetaminophen 500 mg tablet 500 mg PO Q6H PRN Pain (Scale 03/27/25 08/08/25 Score 1-3) atorvastatin 20 mg tablet 20 mg PO QHS 03/27/25 08/08/25 mesalamine 400 mg capsule (with 800 mg PO TID 03/27/25 08/08/25 delayed release tablets inside) mirtazapine 15 mg tablet 15 mg PO DAILY 07/02/25 08/08/25 aripiprazole 2 mg tablet (Abilify) 2 mg PO QHS 07/03/25 08/08/25 Previous Rx's ?Medication ?Instructions ?Recorded melatonin 5 mg capsule 5 mg PO QHS #90 caps 07/20/24 memantine 10 mg tablet 10 mg PO BID #180 tabs 07/20/24 propranolol 10 mg tablet 10 mg PO TID #270 tabs 07/20/24 acetaminophen 500 mg tablet 500 mg PO BID #60 tabs 09/04/25 Allergies Allergy/AdvReac Type Severity Reaction Status Date / Time iodine Allergy Mild Verified 08/08/25 08:52 Sulfa (Sulfonamide Allergy Mild Verified 08/08/25 08:52 Antibiotics) [facility] Disclaimer: The information contained in this section may have been updated after the patient was seen, as this information can be updated by other users. Medical History Chronic kidney disease Unable to care for self Impaired functional mobility, balance, and endurance Abdominal aortic aneurysm (AAA) History of vaginal delivery x 2 Abnormal colonoscopy July 2022, polyps x 3 Benign colonic polyp Dementia Seizure disorder Crohn's disease Diabetes mellitus, type II Hyperlipidemia Hypertension Surgical History History of total knee replacement right History of cholecystectomy Social History Smoking Status: Unknown if ever smoked alcohol intake: current substance use type: denies use current occupational status: retired Travel in the last 8 weeks?: None marital status: Other Medical History Have you received the Pneumonia Vaccine: Yes (08/02/18) ROS Obtained: Yes unobtainable due to mental condition (Dementia) Physical Exam General General appearance: alert and in no apparent distress Head Head exam: atraumatic and normocephalic Eye Eye exam: Present PERRL (3 mm and reactive bilaterally) and EOMI; Absent scleral icterus or conjunctival injection ENT ENT exam: Present mucous membranes moist Neck Neck exam: Present normal inspection and full ROM; Absent lymphadenopathy Chest Chest inspection: Present symmetric chest wall rise; Absent tenderness Respiratory Respiratory exam: Present normal lung sounds bilaterally and other (98% on room air); Absent respiratory distress, wheezes or stridor Cardiovascular Cardiovascular exam: Present regular rate and normal rhythm Abdominal Exam Abdominal exam: Present soft; Absent distention or tenderness Extremities Exam Extremities exam: Present full ROM, normal capillary refill and edema (+1 bilateral lower extremity pitting edema); Absent tenderness Back Exam Back exam: Absent tenderness Comment: No evidence of traumatic injury Neurological Exam Neurological exam: Present alert and other (GCS 11, patient not providing verbal responses but following basic commands in all extremities, no deficits); Absent motor sensory deficit Psychiatric Psychiatric exam: Present normal affect Skin Skin exam: Present warm and dry Medical Decision Making Medical Records Medical records reviewed: Yes I reviewed the patient's medical records. Screening: Per USPSTF and CDC recommendations, given the prevalence of disease in our region, it is our hospital?s policy to screen for HIV and viral Hepatitis for all patients aged 18 and over and those with ongoing risk factors. MR Comment: Per RENATA De Santiago Inquiry Pt receiving controlled substance: No Vital Signs: 09/05/25 03:51 09/05/25 04:20 09/05/25 04:30 Temperature 98.6 F Temperature Source Oral Pulse Rate Pulse Rate [Left Radial] 74 Respiratory Rate 12 14 Blood Pressure 180/93 H Blood Pressure [Left radial] 180/93 H Blood Pressure Mean 122 Blood Pressure Mean [Left radial] 122 Blood Pressure Source [Left radial] Automatic Cuff Blood Pressure Position [Left radial] Supine 02 Sat by Pulse Oximetry 95 Oxygen Delivery Method Room Air 09/05/25 04:31 09/05/25 04:31 09/05/25 04:45 Temperature Temperature Source Pulse Rate Pulse Rate [Left Radial] Respiratory Rate 18 20 Blood Pressure 157/71 H Blood Pressure [Left radial] Blood Pressure Mean 114 Blood Pressure Mean [Left radial] Blood Pressure Source [Left radial] Blood Pressure Position [Left radial] 02 Sat by Pulse Oximetry Oxygen Delivery Method 09/05/25 05:00 09/05/25 05:01 09/05/25 05:01 Temperature Temperature Source Pulse Rate 72 69 Pulse Rate [Left Radial] Respiratory Rate 15 13 Blood Pressure 124/93 H Blood Pressure [Left radial] Blood Pressure Mean 103 Blood Pressure Mean [Left radial] Blood Pressure Source [Left radial] Blood Pressure Position [Left radial] 02 Sat by Pulse Oximetry Oxygen Delivery Method 09/05/25 05:15 09/05/25 05:30 09/05/25 05:45 Temperature Temperature Source Pulse Rate 81 75 73 Pulse Rate [Left Radial] Respiratory Rate 13 20 16 Blood Pressure Blood Pressure [Left radial] Blood Pressure Mean Blood Pressure Mean [Left radial] Blood Pressure Source [Left radial] Blood Pressure Position [Left radial] 02 Sat by Pulse Oximetry 99 100 Oxygen Delivery Method 09/05/25 06:00 Temperature Temperature Source Pulse Rate 67 Pulse Rate [Left Radial] Respiratory Rate 13 Blood Pressure Blood Pressure [Left radial] Blood Pressure Mean Blood Pressure Mean [Left radial] Blood Pressure Source [Left radial] Blood Pressure Position [Left radial] 02 Sat by Pulse Oximetry 100 Oxygen Delivery Method Lab Data Lab Results 09/05/25 04:17: WBC 10.0, RBC 4.86, Hgb 13.9, Hct 43.4, MCV 89.3, MCH 28.6, MCHC 32.0, RDW 17.0, Plt Count 412, MPV 10.1, Neut % (Auto) 41.6, Lymph % (Auto) 42.1, Blount % (Auto) 7.3, Eos % (Auto) 5.0, Baso % (Auto) 3.6 H, Neut # (Auto) 4.1, Lymph # (Auto) 4.2, Blount # (Auto) 0.7, Eos # (Auto) 0.5 H, Baso # (Auto) 0.4 H, Sodium 145, Potassium 4.7, Chloride 108 H, Carbon Dioxide 26, Anion Gap 15.7 H, BUN 26 H, Creatinine 0.90, Estimated GFR 63, Est GFR ( Amer) 76, Glucose 100, Lactate 2.8 H, Calcium 9.5, Total Bilirubin 0.3, AST 27, ALT 29, Alkaline Phosphatase 77, Total Creatine Kinase 59, Total Protein 8.1, Albumin 3.6, Globulin 4.5 H, Albumin/Globulin Ratio 0.8 L, Plasma/Serum Alcohol < 10 09/05/25 04:40: Urine Color Yellow, Urine Appearance Cloudy, Urine pH 6.0, Ur Specific Cataldo 1.020, Urine Protein Negative, Urine Glucose (UA) Negative, Urine Ketones Negative, Urine Blood Negative, Urine Nitrate Negative, Urine Bilirubin Negative, Urine Urobilinogen 0.3, Ur Leukocyte Esterase Negative, Urine RBC None, Urine WBC None, Ur Squamous Epith Cells 5-10, Urine Bacteria Trace, Urine Opiates Screen Negative, Urine Methadone Screen Negative, Ur Barbituates Screen Negative, Ur Phencyclidine Scrn Negative, U Benzodiazepines Scrn Negative, Urine Cocaine Screen Negative, U Marijuana (THC) Screen Negative 09/05/25 06:05: Random Glucose 109 H 09/05/25 04:17 09/05/25 04:17 Orders (Tests/Meds): ED MEDICATIONS Discontinued Medications Generic Name Dose Route Start Last Admin Trade Name Freq PRN Reason Stop Dose Admin Dextrose 250 ml 09/05/25 04:25 09/05/25 04:54 Dextrose 5% In Water 250ml IV 09/05/25 04:26 250 ml ONCE ONE Administration Lactated Ringer's 1,000 mls @ 999 mls/hr 09/05/25 04:22 09/05/25 04:57 Lactated Ringer's 1000 Ml Bag IV 09/05/25 05:22 999 mls/hr .Q1H1M ONE Administration ORDERS Category Date Time Status CXR --portable [XR chest portable] Stat Exams 09/05/25 04:50 Completed CBC w/Auto Diff [Complete Blood Count Auto Diff] Stat Lab 09/05/25 04:17 Completed CK [Creatine Kinase] Stat Lab 09/05/25 04:17 Completed CMP [Comprehensive Metabolic Panel] Stat Lab 09/05/25 04:17 Completed Ethanol [Ethyl Alcohol] Stat Lab 09/05/25 04:17 Completed Glucose,Random Stat Lab 09/05/25 06:05 Completed Lactic Acid Stat Lab 09/05/25 04:17 Completed UDS [Drug Screen,Urine] Stat Lab 09/05/25 04:40 Results Urinalysis and Microscopic Stat Lab 09/05/25 04:40 Completed ECG Request Stat Y 09/05/25 04:29 Ordered Medical Decision Narrative: In summary, this 65-year-old female with comorbidities described in the HPI presents to the emergency department today with seizure-like activity from intermediate. On initial evaluation patient is hemodynamically stable, afebrile, GCS 11 with no focal neurologic deficits, no evidence of trauma, cardiopulmonary exam benign, benign abdominal exam, +1 bilateral lower extremity pitting edema, based on previous records and report from intermediate patient appears to be at her mental baseline. Differential diagnosis includes but is not limited to breakthrough seizure, medication noncompliance, metabolic abnormality including hypoglycemia, urinary tract infection, also considered the possibility of intoxication, electrolyte abnormality, among others. Based on these concerns, I ordered hematologic and serum labs, ECG, urine studies. [id number] glucose on arrival to the ER was 77. Along with IV fluids patient is receiving D5. Since EMS reported a blood glucose of 123 during transportation I do not suspect that hypoglycemia contributed to her seizure-like activity. Patient has DNR from intermediate with her paperwork. ECG personally interpreted demonstrates sinus rhythm, rate 72, normal axis, normal ME and QTc, no STEMI. Patient received IV fluids, D5 for treatment. Labs personally reviewed demonstrate no leukocytosis or anemia, CMP demonstrates prerenal azotemia, patient is already being treated with IV fluids, lactic is mildly elevated which is likely contributing to her anion gap, this is consistent with having had seizure-like activity, EtOH negative, UA negative for findings of infection, UDS negative for all analytes that were able to be analyzed tonight. Unfortunately the analyzer for amphetamines is down but I have very low suspicion for amphetamines being in this patient system and I am not going to hold the patient for results. XR personally interpreted demonstrates no acute thoracic abnormality, see radiology read for final interpretation. Since patient is at her neurologic baseline, has no focal neurologic deficits, and has not sustained any trauma I do not believe she requires radiographic imaging of the brain at this time. While in the ER patient has remained on the administrative volunteer and had good vitals, currently saturating 100% on room air, no seizure-like activity, FSBG 79 but this does not make sense after patient received dextrose containing fluids. I am concerned that our glucometers are not correct because the patient's blood that was sent up for CMP was collected at the same time her initial fingerstick was performed. Her initial fingerstick was 77 blood glucose but her blood glucose on CMP was 100. This is a fairly significant discrepancy. Both glucometers were QC'd, one of them read 81, the other read 87 off the same sample from the patient, so a fresh tube was sent to the lab for a glucose check there to confirm patient's actual blood glucose at this time. This resulted 109. glucometers are going to be formally calibrated. Patient's blood glucose is appropriate and she is appropriate for discharge. Patient is tolerating oral intake. I believe she is appropriate for discharge back to her facility at this time. I sent a referral note to Dr. Castle who is the PCP she has recently seen at [facility] and requested that he consider adjusting her antiepileptic medications since she has had multiple visits to our ER in the last few months for breakthrough seizures. Patient remains at her neurologic baseline. Verbal discharge instructions including continued medication use, recommendations for follow-up, and return precautions were given to the facility by phone by GARCÍA Franco and also provided in written form. Patient was discharged in stable condition and taken back to her facility. Critical Care Critical Care Time Critical Care Time: No
[2025-09-05 04:30] LABS: Hematocrit 43.4 % (37.0-47.0); Hemoglobin 13.9 g/dL (12.2-16.2); Immature Granulocytes % 0.4 %; Mean Corpuscular HGB Conc 32.0 g/dL (31.8-35.4); Mean Corpuscular Hemoglobin 28.6 pg (27.0-31.2); Mean Corpuscular Volume 89.3 fl (81-99); Nucleated Red Blood Cells % 0 %; Platelet Count 412 K/mm3 (142-424); Red Blood Count 4.86 M/mm3 (4.20-5.40); Red Cell Distribution Width-SD 55.7 fL; White Blood Count 10.0 K/mm3 (4.8-10.8)
[2025-09-05 04:37] LABS: Alanine Aminotransferase 29 U/L (12-78); Albumin Level 3.6 g/dl (3.5-5.0); Albumin/Globulin Ratio 0.8 (1.1-1.8); Alkaline Phosphatase 77 U/L (38-126); Anion Gap 15.7 mEq/L (5-15); Aspartate Amino Transferase 27 U/L (14-36); Bilirubin,Total 0.3 mg/dl (0.2-1.3); Blood Urea Nitrogen 26 mg/dl (7-17); Calcium 9.5 mg/dl (8.4-10.2); Carbon Dioxide 26 mmol/L (22.0-30.0); Chloride 108 mmol/L (98-107); Creatinine,Serum 0.90 mg/dl (0.52-1.04); Estimated Glomerular Filt Rate 63 ml/min (>60); GFR (African American) 76 ML/MIN (>60); Globulin 4.5 g/dL (1.3-3.2); Glucose 100 mg/dl (74-100); Potassium 4.7 mmoL/L (3.5-5.1); Sodium 145 mmol/L (136-145); Total Protein,Serum 8.1 g/dl (6.3-8.2)
--- OUTSIDE RECORDS SUMMARY | 2025-09-05 04:42 | XMS_ITS | Clinical Summary ---
Author Organization [facility] Address [address] [place] [id number] Care Team Providers Care Machining Associate Name Role Phone None, Physician Primary Care [...] 2025 3, 08/04/2021, 07/30/2020, Additional history exists RSV 50+ and (1 - 1-dose 75+ series) 2034 Haemophilus Influenzae Type B (Hib) Vaccine Aged [...] patient's age to complete this topic Insurance [facility] [address] [id number] [place] [address] [employer] [facility] Address: [address] [address] [place] [address] Care Teams Machining Associate Relationship Specialty Start Date End Date None, Physician PCP - General 02/03/25
[2025-09-05 04:47] LABS: Microscopic, Urine URINE MICROSCOPIC (MICROSCOPIC)
--- NOTE | 2025-09-05 04:50 | XR_ITS ---
PROCEDURE INFORMATION: Exam: XR Chest Exam date and time: 09/05/2025 4:59 AM Age: 65 years old Clinical indication: Other: Seizure TECHNIQUE: Imaging protocol: Radiologic exam of the chest. Views: 1 view. COMPARISON: CR XR CHEST PORTABLE 07/02/2025 8:32 AM FINDINGS: Lungs: Unremarkable. No consolidation. Pleural spaces: Unremarkable. No pleural effusion. No pneumothorax. Heart/Mediastinum: Unremarkable. No cardiomegaly. Bones/joints: Unremarkable. IMPRESSION: No acute findings.
[2025-09-05 04:51] LABS: Creatine Kinase 59 U/L (30-135)
[2025-09-05] MEDS: DEXTROSE 5% IN WATER 250ML 250 ML IV (04:54)
--- NOTE | 2025-09-05 04:55 | ECG_ITS ---
APPROVED REPORT Exam: Resting ECG HR:72 bpm ECG Measurements Heart Rate 72 AXES MO 170 P 44 QRSd 97 QRS 35 QT 389 T 30 QTc 414 Conclusion SINUS RHYTHM MODERATE ST DEPRESSION [0.05+ mV ST DEPRESSION] No STEMI Electronically signed by : ROSIBEL DYSON, 09/06/2025 03:52:30
[2025-09-05] MEDS: LACTATED RINGERS 1000ML 1,000 ML 999 ML IV (04:57)
[2025-09-05 05:07] LABS: Bilirubin,Urine Negative (Negative); Color,Urine YELLOW (Yellow); Glucose,Urine (UA) Negative (Negative); Ketones,Urine Negative (Negative); Leukocyte Esterase,Urine Negative (Negative); PH,Urine 6.0 (5.0-8.5); Protein,Urine Negative (Negative); Specific Gravity, Urine 1.020 (1.005-1.030); Urobilinogen,Urine 0.3 EU/dl (0.2)
[2025-09-05 05:08] LABS: Bacteria,Urine Trace /lpf
--- NOTE | 2025-09-05 05:12 | PC.NURSE ---
upon pt arrival, seizure pads applied to bedside rails, nonrebreather and suction readily available
[2025-09-05 05:31] LABS: Barbiturates Screen,Urine Negative ng/ml (<200); Benzodiazepines Screen,Urine Negative ng/ml (<200); Methadone Screen,Urine Negative ng/ml (<300); Opiate Screen,Urine Negative ng/ml (<300); Phencyclidine Screen,Urine Negative ng/ml (<25)
--- NOTE | 2025-09-05 05:42 | PC.NURSE ---
Report called to [facility] at this time
[2025-09-05 08:33] LABS: Reflex Lactic Add Lactic Reflex
[2025-09-05 12:26] LABS: Amphetamine/Metha Screen,Urine Negative ng/ml (<1000)
== END 2025-09-05 07:10 ==
PROVIDERS: Emergency Provider Emergency Medicine
DX: R56.9 Unspecified convulsions (principal); R74.02 Elevation of levels of lactic acid dehydrogenase [LDH]; E87.29 Other acidosis; R39.2 Extrarenal uremia; R60.0 Localized edema; E11.9 Type 2 diabetes mellitus without complications; I12.9 Hypertensive chronic kidney disease with stage 1 through stage 4 chronic kidney disease, or unspecified chronic kidney disease; N18.9 Chronic kidney disease, unspecified; E78.5 Hyperlipidemia, unspecified
CPT/HCPCS: 71045; 80053; 80307; 80320; 81001; 82550; 82947; 83605; 85025; 93005; 96361; 96374; 99285; J7060; J7120

== ENCOUNTER 2025-09-07 08:58 | Outpatient (CLI) | payer MEDICARE, SELFPAY ==
--- OUTSIDE RECORDS SUMMARY | 2025-09-07 09:05 | XMS_ITS | Clinical Summary ---
Author Organization [facility] Address [address] [place] [id number] Care Team Providers Care Anchorer Name Role Phone None, Physician Primary Care [...] to complete this topic Insurance [facility] [address] [id number] [place] [address] [employer] Care Teams Anchorer Relationship Specialty Start Date End Date None, Physician PCP - General 02/03/25
--- OUTSIDE RECORDS SUMMARY | 2025-09-07 09:05 | XMS_ITS | Clinical Summary ---
Author Organization [facility] Address [address] [place] [address] Phone Care Team Providers Care Broommaking Supervisor Name Role Phone Unavailable Primary Care Provider [...] on file Sexual Orientation Not on file Plan of Treatment Health Maintenance Due Date Last Done Comments Wellness Exam Medicare 1962 Hepatitis C Screening 1977 DTaP/TDaP/Td (1 - Tdap) 1978 Breast Cancer Screening 1999 Cologuard 02/08/2004 Colon Cancer Screening 02/08/2004 Colonoscopy 02/08/2004 FIT 02/08/2004 Sigmoidoscopy 02/08/2004 Virtual Colonography 02/08/2004 Pneumococcal Vaccine 50+ (1 of 1 - PCV) 2009 Zoster (1 of 2) 2009 Bone Density Screening 02/08/2024 COVID-19 Vaccine ( - 2024-2 6 season) 2025 Influenza Vaccine (#1) 2025 Hepatitis B Vaccine Aged Out No longe r eligible based on patient's age to complete this topic Meningococcal B Vaccine Aged Out No l onger eligible based on patient's age to complete this topic Insurance [place] SOUSA [id number] MEDICARE [place] PART A AND B
[2025-09-07 10:07] LABS: Valproic Acid, (Depakene) 27.2 ug/ml (50-100)
== END 2025-09-07 23:59 | disposition home or self-care (01) ==
PROVIDERS: PCP Family Medicine; Visit Provider Family Medicine
DX: D89.2 Hypergammaglobulinemia, unspecified (principal); R56.9 Unspecified convulsions
CPT/HCPCS: 36415; 80164; 84155; 84165

== ENCOUNTER 2025-09-14 09:36 | Outpatient (CLI) | payer MEDICARE, SELFPAY ==
--- OUTSIDE RECORDS SUMMARY | 2025-09-14 09:41 | XMS_ITS | Clinical Summary ---
Author Organization [facility] Address [address] [place] [address] Care Team Providers Care Board Layer Name Role Phone None, Physician Primary Care [...] to complete this topic Insurance [facility] [place] [id number] [place] [address] [employer] [facility] Address: [address] [address] [place] [address] Care Teams Board Layer Relationship Specialty Start Date End Date None, Physician PCP - General 02/03/25
--- OUTSIDE RECORDS SUMMARY | 2025-09-14 09:41 | XMS_ITS | Clinical Summary ---
Author Organization [facility] Address [address] [place] [address] Phone Care Team Providers Care Baster Hand Name Role Phone Unavailable Primary Care Provider [...] to complete this topic Insurance [place]LEGARIO SOUSA [id number] MEDICARE [place] PART A AND B
--- OUTSIDE RECORDS SUMMARY | 2025-09-14 09:42 | XMS_ITS ---
Author Organization Unknown ENCOUNTERS Encounter Performer Location Date Diagnosis Diagnosis Status Emergency [facility] [address] [place] [address] [id number] XSNF Pre Admit [facility] [address] [place] [address] [id number] Emergency [facility] [address] [place] [address] [id number] ANTONIO Pre Admit [facility] [address] [place] [address] [id number] Emergency [facility] [address] [place] [address] [id number] ANTONIO Pre Admit [facility] [address] [place] [address] [id number] Emergency [facility] [address] [place] [address] [id number] XSNF Pre Admit [facility] [address] [place] [address] [id number] Emergency [facility] [address] [place] [address] [id number] ANTONIO Pre Admit [facility] [address] [place] [address] [id number] Emergency [facility] [address] [place] [address] [id number] XSNF Pre Admit [facility] [address] [place] [address] [id number] Emergency [facility] [address] [place] [address] [id number] ANTONIO Pre Admit [facility] [address] [place] [address] [id number] *Note: Encounters from your own facility or health system may be excluded. Allergies, Adverse Reactions, Alerts Allergen Type Severity Identification Date iodine drug allergy [id number] Sulfa (Sulfonamide Antibiotics) drug allergy [id number] Medications Name Date Quantity Days Supplied GPI Number
[2025-09-14 09:43] LABS: Hematocrit 41.0 % (37.0-47.0); Hemoglobin 13.5 g/dL (12.2-16.2); Immature Granulocytes % 0.2 %; Mean Corpuscular HGB Conc 32.9 g/dL (31.8-35.4); Mean Corpuscular Hemoglobin 28.6 pg (27.0-31.2); Mean Corpuscular Volume 86.9 fl (81-99); Nucleated Red Blood Cells % 0 %; Platelet Count 406 K/mm3 (142-424); Red Blood Count 4.72 M/mm3 (4.20-5.40); Red Cell Distribution Width-SD 51.3 fL; White Blood Count 9.1 K/mm3 (4.8-10.8)
[2025-09-14 10:10] LABS: Alanine Aminotransferase 19 U/L (12-78); Albumin Level 4.3 g/dl (3.5-5.0); Albumin/Globulin Ratio 1.3 (1.1-1.8); Alkaline Phosphatase 68 U/L (38-126); Anion Gap 11.5 mEq/L (5-15); Aspartate Amino Transferase 26 U/L (14-36); Bilirubin,Total 0.5 mg/dl (0.2-1.3); Blood Urea Nitrogen 20 mg/dl (7-17); Calcium 9.4 mg/dl (8.4-10.2); Carbon Dioxide 27 mmol/L (22.0-30.0); Chloride 106 mmol/L (98-107); Creatinine,Serum 0.90 mg/dl (0.52-1.04); Estimated Glomerular Filt Rate 63 ml/min (>60); GFR (African American) 76 ML/MIN (>60); Globulin 3.4 g/dL (1.3-3.2); Glucose 82 mg/dl (74-100); Potassium 4.5 mmoL/L (3.5-5.1); Sodium 140 mmol/L (136-145); Total Protein,Serum 7.7 g/dl (6.3-8.2)
[2025-09-14 10:15] LABS: Valproic Acid, (Depakene) 58.7 ug/ml (50-100)
== END 2025-09-14 23:59 | disposition home or self-care (01) ==
PROVIDERS: PCP Family Medicine; Visit Provider Family Medicine
DX: G40.909 Epilepsy, unspecified, not intractable, without status epilepticus (principal)
CPT/HCPCS: 36415; 80053; 80164; 85025

== ENCOUNTER 2025-09-18 05:48 | Emergency (ER) | payer MEDICARE, SELFPAY ==
[2025-09-18] VITALS (8 sets, daily range): BP systolic 145–173; BP diastolic 70–114; PULSE 37–68; RESP 10–20; TEMP 36.5–36.6; O2SAT 48–99; BMI 30.7
--- NOTE | 2025-09-18 05:49 | HMH.EDGENADL ---
Discharge Plan Disposition Patient Disposition: Xfer SNF Prescriptions Prescriptions: No Action acetaminophen 500 mg tablet 500 mg PO Q6H PRN (Reason: Pain (Scale Score 1-3)) mesalamine 400 mg capsule (with del rel tablets) 800 mg PO TID atorvastatin 20 mg tablet 20 mg PO QHS fluoxetine 10 mg capsule 10 mg PO DAILY aripiprazole [Abilify] 2 mg tablet 2 mg PO QHS valproic acid (as sodium salt) 250 mg/5 mL (5 mL) solution 250 mg PO QID Qty: 500 3RF melatonin 5 mg capsule 5 mg PO QHS Qty: 90 0RF memantine 10 mg tablet 10 mg PO BID Qty: 180 3RF acetaminophen 500 mg tablet 500 mg PO BID Qty: 60 0RF mirtazapine 15 mg Tablet 15 mg PO DAILY Referrals Follow up/Referrals: Danielito Castle MD [Primary Care Provider, Family Practice] - See instructions Activity Restrictions/Add. Instructions Additional Instructions/Restrictions: Urinalysis clean. No significant derangements on labs. Clinical Impressions Clinical Impression: Seizure, Epilepsy Instructions Patient Instructions: DI for Seizure Disorder in Adults, DI for Seizure (Not Epilepsy/Seizure Disorder), DI for Seizure Disorder in Child Print Language Print Language: Wolof Discharge ED Provider: Collin Segovia General Adult HPI General Chief complaint: Seizure Stated complaint: seizure Time Seen by Provider: 09/18/25 05:49 History of Present Illness HPI narrative: 65-year-old female with history of dementia, nonverbal at baseline, diabetes, epilepsy on valproic acid presents for seizure. Per detention report, patient had 2 seizures lasting approximately 40 seconds each, unclear how long between them. No report as to whether patient has been taking her medications. She has been seen here numerous times for seizures in the past. No reported trauma tonight. No seizures en route with EMS. Related Data Home Medications ?Medication ?Instructions ?Recorded ?Confirmed fluoxetine 10 mg capsule 10 mg PO DAILY 02/21/25 09/11/25 acetaminophen 500 mg tablet 500 mg PO Q6H PRN Pain (Scale 03/27/25 09/11/25 Score 1-3) atorvastatin 20 mg tablet 20 mg PO QHS 03/27/25 09/11/25 mesalamine 400 mg capsule (with 800 mg PO TID 03/27/25 09/11/25 delayed release tablets inside) mirtazapine 15 mg tablet 15 mg PO DAILY 07/02/25 09/11/25 aripiprazole 2 mg tablet (Abilify) 2 mg PO QHS 07/03/25 09/11/25 Previous Rx's ?Medication ?Instructions ?Recorded melatonin 5 mg capsule 5 mg PO QHS #90 caps 07/20/24 memantine 10 mg tablet 10 mg PO BID #180 tabs 07/20/24 acetaminophen 500 mg tablet 500 mg PO BID #60 tabs 09/04/25 valproic acid (as sodium salt) 250 250 mg (5 mL) PO QID #500 mL 09/09/25 mg/5 mL (5 mL) oral solution Allergies Allergy/AdvReac Type Severity Reaction Status Date / Time iodine Allergy Mild Verified 09/11/25 08:53 Sulfa (Sulfonamide Allergy Mild Verified 09/11/25 08:53 Antibiotics) [facility] Disclaimer: The information contained in this section may have been updated after the patient was seen, as this information can be updated by other users. Medical History Sinusitis Seizure Chronic kidney disease Unable to care for self Impaired functional mobility, balance, and endurance History of vaginal delivery x 2 Abnormal colonoscopy July 2022, polyps x 3 Dementia Seizure disorder Crohn's disease Diabetes mellitus, type II Hyperlipidemia Hypertension Surgical History History of total knee replacement right History of cholecystectomy Social History Smoking Status: Unknown if ever smoked alcohol intake: current substance use type: denies use current occupational status: retired Travel in the last 8 weeks?: None marital status: Have you lived/traveled outside US in past 30 days?: No Contact w/someone who lives/traveled outside US past 30 days?: No Exposure to someone with infectious disease in past 14 days?: No Do you have a fever (greater than 100.4 F or 38 C)?: No Have you tested positive for COVID-19?: No Exposed to someone with COVID-19 in past 14 days?: No Do you have a sore throat?: No Do you have a cough?: No Do you have any weakness?: No Do you have any diarrhea?: No Are you experiencing any unusual bleeding?: No Do you have any muscle aches/pain?: No Do you have any abdominal pain?: No Are you experiencing loss of taste or smell?: No Other Medical History Have you received the Pneumonia Vaccine: Yes (08/02/18) ROS Obtained: Yes All systems reviewed & no additional complaints except as documented Physical Exam General General appearance: alert and in no apparent distress Head Head exam: atraumatic and normocephalic Eye Eye exam: Present normal appearance, PERRL and EOMI ENT ENT exam: Present normal oropharynx and normal external ear exam Neck Neck exam: Present normal inspection and full ROM Chest Chest inspection: Present normal inspection and symmetric chest wall rise; Absent tenderness Respiratory Respiratory exam: Present normal lung sounds bilaterally; Absent respiratory distress Cardiovascular Cardiovascular exam: Present regular rate and normal rhythm Abdominal Exam Abdominal exam: Present soft; Absent distention, tenderness or guarding Extremities Exam Extremities exam: Present normal inspection; Absent edema or joint swelling Back Exam Back exam: Present normal inspection; Absent tenderness Neurological Exam Neurological exam: Present alert and other (patient is nonverbal, at baseline. No seizure-like activity); Absent motor sensory deficit Psychiatric Psychiatric exam: Present flat affect Skin Skin exam: Present warm, dry and normal color Lymphatic Lymphatic Findings: no adenopathy Medical Decision Making Medical Records Medical records reviewed: Yes I reviewed the patient's medical records. Screening: Per USPSTF and CDC recommendations, given the prevalence of disease in our region, it is our hospital?s policy to screen for HIV and viral Hepatitis for all patients aged 18 and over and those with ongoing risk factors. Jonnathan Inquiry Pt receiving controlled substance: No Jonnathan was queried for this patient: No Vital Signs: 09/18/25 05:49 09/18/25 05:50 09/18/25 05:50 Temperature Temperature Source Pulse Rate 37 L 45 L Pulse Rate [Right Radial] Respiratory Rate Blood Pressure 148/114 H Blood Pressure [Right Arm] Blood Pressure Mean 124 Blood Pressure Mean [Right Arm] Blood Pressure Source [Right Arm] Blood Pressure Position [Right Arm] 02 Sat by Pulse Oximetry 87 L 48 L Oxygen Delivery Method 09/18/25 05:56 09/18/25 05:56 09/18/25 05:56 Temperature 97.7 F Temperature Source Temporal Artery Scan Pulse Rate 67 Pulse Rate [Right Radial] 68 Respiratory Rate 20 15 Blood Pressure 173/80 H Blood Pressure [Right Arm] 148/114 H Blood Pressure Mean 111 Blood Pressure Mean [Right Arm] 125 Blood Pressure Source [Right Arm] Automatic Cuff Blood Pressure Position [Right Arm] Supine 02 Sat by Pulse Oximetry 99 99 Oxygen Delivery Method Room Air 09/18/25 06:00 09/18/25 06:00 09/18/25 06:30 Temperature Temperature Source Pulse Rate 64 Pulse Rate [Right Radial] Respiratory Rate 10 L Blood Pressure 145/89 H 149/70 H Blood Pressure [Right Arm] Blood Pressure Mean 101 96 Blood Pressure Mean [Right Arm] Blood Pressure Source [Right Arm] Blood Pressure Position [Right Arm] 02 Sat by Pulse Oximetry 99 Oxygen Delivery Method 09/18/25 06:45 Temperature Temperature Source Pulse Rate 55 L Pulse Rate [Right Radial] Respiratory Rate 12 Blood Pressure Blood Pressure [Right Arm] Blood Pressure Mean Blood Pressure Mean [Right Arm] Blood Pressure Source [Right Arm] Blood Pressure Position [Right Arm] 02 Sat by Pulse Oximetry 92 L Oxygen Delivery Method Lab Data Lab results reviewed: Yes I reviewed the patient's lab results. Lab Results 09/18/25 05:59: WBC 9.7, RBC 5.28, Hgb 15.1, Hct 45.7, MCV 86.6, MCH 28.6, MCHC 33.0, RDW 16.0, Plt Count 432 H, MPV 10.4, Neut % (Auto) 45.7, Lymph % (Auto) 40.0, Warrick % (Auto) 6.5, Eos % (Auto) 3.2, Baso % (Auto) 4.2 H, Neut # (Auto) 4.5, Lymph # (Auto) 3.9, Warrick # (Auto) 0.6, Eos # (Auto) 0.3, Baso # (Auto) 0.4 H, Sodium 142, Potassium 3.9, Chloride 105, Carbon Dioxide 26, Anion Gap 14.9, BUN 16, Creatinine 0.80, Estimated Creat Clear 75, Estimated GFR 72, Est GFR ( Amer) 87, Glucose 79, Calcium 9.9, Total Bilirubin 0.5, AST 26, ALT 22, Alkaline Phosphatase 73, Total Protein 8.5 H, Albumin 4.6, Globulin 3.9 H, Albumin/Globulin Ratio 1.2 09/18/25 06:10: Urine Color Yellow, Urine Appearance Clear, Urine pH 6.5, Ur Specific [place] 1.020, Urine Protein 1+ A, Urine Glucose (UA) Negative, Urine Ketones Negative, Urine Blood Negative, Urine Nitrate Negative, Urine Bilirubin Negative, Urine Urobilinogen 0.2, Ur Leukocyte Esterase Negative, Urine RBC None, Urine WBC None, Ur Squamous Epith Cells None, Urine Bacteria None 09/18/25 05:59 09/18/25 05:59 Orders (Tests/Meds): ED MEDICATIONS Discontinued Medications Generic Name Dose Route Start Last Admin Trade Name Chica PRN Reason Stop Dose Admin Magnesium Sulfate 2 gm in 50 mls @ 150 mls/hr 09/18/25 05:49 09/18/25 06:49 Magnesium Sulfate 2gm/50ml Premix IV 09/18/25 06:08 Infused ONCE ONE Infusion ORDERS Category Date Time Status CBC w/Auto Diff [Complete Blood Count Auto Diff] Stat Lab 09/18/25 05:59 Completed CMP [Comprehensive Metabolic Panel] Stat Lab 09/18/25 05:59 Completed Free Valproic Acid (Depakote) Routine Lab 09/18/25 05:59 Received UA [Urinalysis and Microscopic] Stat Lab 09/18/25 06:10 Completed Medical Decision Narrative: 65-year-old female with history of epilepsy, dementia presents for breakthrough seizure. History was obtained via interactive discussion with patient, EMS, chart review, detention report. On arrival, patient is afebrile, hemodynamically stable, satting properly on room air, interactive but nonverbal, at neurologic baseline without seizure-like activity. No signs of trauma on exam. Differential includes but is not limited to breakthrough seizure, medication noncompliance, electrolyte derangement, UTI. Workup initiated including basic labs, urinalysis, VPA level On re-evaluation, patient [remains afebrile, HD stable.] Laboratory workup independently interpreted by me and significant for no significant leukocytosis, no electrolyte derangement. Urinalysis not consistent with infection. No obvious emergent pathology noted. Patient discharged back to the nursing facility stable Procedures Risk/Benefits of Procedure(s) Were Explained: Yes Critical Care Critical Care Time Critical Care Time: No
--- OUTSIDE RECORDS SUMMARY | 2025-09-18 05:53 | XMS_ITS | Clinical Summary ---
Author Organization [facility] Address [address] [place] [address] Phone Care Team Providers Care Product Marketing Director Name Role Phone Unavailable Primary Care Provider [...] to complete this topic Insurance OLEGARIO SOUSA [id number] MEDICARE [place] PART A AND B
--- OUTSIDE RECORDS SUMMARY | 2025-09-18 05:53 | XMS_ITS | Clinical Summary ---
Author Organization [facility] Address [address] [place] [address] Care Team Providers Care Pillowcase Folder Name Role Phone None, Physician Primary Care [...] patient's age to complete this topic Insurance [facility] OLEGARIO Davis [id number] [place] [address] [facility] Address: [address] [address] [place] [address] Care Teams Pillowcase Folder Relationship Specialty Start Date End Date None, Physician PCP - General 02/03/25
--- NOTE | 2025-09-18 06:01 | PC.NURSE ---
Pt awake and alert withdraws from sternal rub Resp full and easy Pt in SR per continuous heart monitor. Pt non verbal. IV site without redness or edema
[2025-09-18 06:09] LABS: Hematocrit 45.7 % (37.0-47.0); Hemoglobin 15.1 g/dL (12.2-16.2); Immature Granulocytes % 0.4 %; Mean Corpuscular HGB Conc 33.0 g/dL (31.8-35.4); Mean Corpuscular Hemoglobin 28.6 pg (27.0-31.2); Mean Corpuscular Volume 86.6 fl (81-99); Nucleated Red Blood Cells % 0 %; Platelet Count 432 K/mm3 (142-424); Red Blood Count 5.28 M/mm3 (4.20-5.40); Red Cell Distribution Width-SD 50.1 fL; White Blood Count 9.7 K/mm3 (4.8-10.8)
--- NOTE | 2025-09-18 06:12 | PC.NURSE ---
Pt straight cath'd per MD order to obtain urine at this time. Sterile technique utilized
[2025-09-18 06:13] LABS: Microscopic, Urine URINE MICROSCOPIC (MICROSCOPIC)
--- NOTE | 2025-09-18 06:14 | PC.NURSE ---
Pt cathed for urine specimen and depends and sheet changed Pt tolerated well
[2025-09-18 06:19] LABS: Alanine Aminotransferase 22 U/L (12-78); Albumin Level 4.6 g/dl (3.5-5.0); Albumin/Globulin Ratio 1.2 (1.1-1.8); Alkaline Phosphatase 73 U/L (38-126); Anion Gap 14.9 mEq/L (5-15); Aspartate Amino Transferase 26 U/L (14-36); Bilirubin,Total 0.5 mg/dl (0.2-1.3); Blood Urea Nitrogen 16 mg/dl (7-17); Calcium 9.9 mg/dl (8.4-10.2); Carbon Dioxide 26 mmol/L (22.0-30.0); Chloride 105 mmol/L (98-107); Creatinine Clearance Estimated 75 mL/min (50-200); Creatinine,Serum 0.80 mg/dl (0.52-1.04); Estimated Glomerular Filt Rate 72 ml/min (>60); GFR (African American) 87 ML/MIN (>60); Globulin 3.9 g/dL (1.3-3.2); Glucose 79 mg/dl (74-100); Potassium 3.9 mmoL/L (3.5-5.1); Sodium 142 mmol/L (136-145); Total Protein,Serum 8.5 g/dl (6.3-8.2)
[2025-09-18 06:31] LABS: Bilirubin,Urine Negative (Negative); Color,Urine YELLOW (Yellow); Glucose,Urine (UA) Negative (Negative); Ketones,Urine Negative (Negative); Leukocyte Esterase,Urine Negative (Negative); PH,Urine 6.5 (5.0-8.5); Protein,Urine 1+ (Negative); Specific Gravity, Urine 1.020 (1.005-1.030); Urobilinogen,Urine 0.2 EU/dl (0.2)
[2025-09-18] MEDS: MAGNESIUM SULFATE IN WATER 2 GM/50 ML PIGGYBACK IV (06:34)
--- NOTE | 2025-09-18 07:03 | PC.NURSE ---
Report given to Marina MARIANO Pt sleeping when undisturbed
--- NOTE | 2025-09-18 07:40 | PC.NURSE ---
Spoke with EMS for pt transfer back to [facility].
--- NOTE | 2025-09-18 08:16 | PC.NURSE ---
[facility]
== END 2025-09-18 08:18 ==
PROVIDERS: Emergency Provider Emergency Medicine; PCP Family Medicine
DX: G40.909 Epilepsy, unspecified, not intractable, without status epilepticus (principal); E11.9 Type 2 diabetes mellitus without complications; E78.5 Hyperlipidemia, unspecified; I10 Essential (primary) hypertension
CPT/HCPCS: 80053; 80165; 81001; 85025; 96365; 96367; 99285; J3475

== ENCOUNTER 2025-09-26 07:15 | Outpatient (CLI) | payer MEDICARE, SELFPAY ==
--- OUTSIDE RECORDS SUMMARY | 2025-09-26 07:17 | XMS_ITS | Clinical Summary ---
Author Organization [facility] Address [address] [place] [address] Phone Care Team Providers Care Product Control And Logistics Analyst Name Role Phone Unavailable Primary Care Provider [...] to complete this topic Insurance OLEGARIO SOUSA [id number] MEDICARE [place] PART A AND B
--- OUTSIDE RECORDS SUMMARY | 2025-09-26 07:17 | XMS_ITS | Clinical Summary ---
Author Organization [facility] Address [address] [place] [address] Care Team Providers Care Butcher Head Name Role Phone None, Physician Primary Care [...] this topic Insurance [facility] OLEGARIO Davis [id number] [place] [address] [employer] Care Teams Butcher Head Relationship Specialty Start Date End Date None, Physician PCP - General 02/03/25
--- OUTSIDE RECORDS SUMMARY | 2025-09-26 07:18 | XMS_ITS ---
Author Organization Unknown ENCOUNTERS Encounter Performer Location Date Diagnosis Diagnosis Status Emergency [facility] [address] [place] [address] [id number] XSNF Pre Admit [facility] [address] [place] [address] [id number] Emergency [facility] [address] [place] [address] [id number] XSNF Pre Admit [facility] [address] [place] [address] [id number] Emergency [facility] [address] [place] [address] [id number] ANTONIO Pre Admit [facility] [address] [place] [address] [id number] Emergency [facility] [address] [place] [address] [id number] ANTONIO Pre Admit [facility] [address] [place] [address] [id number] Emergency [facility] [address] [place] [address] [id number] XSNF Pre Admit [facility] [address] [place] [address] [id number] Emergency [facility] [address] [place] [address] [id number] ANTONIO Pre Admit [facility] [address] [place] [address] [id number] Emergency [facility] [address] [place] [address] [id number] XSNF Pre Admit [facility] [address] [place] [address] [id number] Emergency Collin Segovia [address] [place] [address] [id number] ANTONIO Pre Admit Adam Arauz [address] [place] [address] [id number] *Note: Encounters from your own facility or health system may be excluded. Allergies, Adverse Reactions, Alerts Allergen Type Severity Identification Date iodine drug allergy 20240926 Sulfa (Sulfonamide Antibiotics) drug allergy 2 20240926 Medications Name Date Quantity Days Supplied GPI Number
[2025-09-26 07:49] LABS: Valproic Acid, (Depakene) 41.2 ug/ml (50-100)
== END 2025-09-26 23:59 | disposition home or self-care (01) ==
LOC: LAB.DROPOF 07:16
PROVIDERS: PCP Family Medicine; Visit Provider Nurse Practitioner Family
DX: R56.9 Unspecified convulsions (principal)
CPT/HCPCS: 36415; 80164; 80177

== ENCOUNTER 2025-10-01 14:28 | Outpatient (CLI) | payer MEDICARE, SELFPAY ==
--- NOTE | 2025-10-01 13:15 | XR_ITS ---
FINAL REPORT TECHNIQUE: Bone densitometry calculations of the lumbar spine and bilateral hips were obtained. CLINICAL HISTORY: evaluate for osteoporosis COMPARISON: None FINDINGS: Using L1-4, the bone mineral density of the spine is 1.360 g/cm2, corresponding to T-score of 2.8 and a Z score of 4.7. This is within the range of normal. Using the left hip, the bone mineral density of the femoral neck is 0.995 g/cm2, corresponding to a T-score of 1.3 and a Z-score of 2.9. This is within the range of normal. Using the right hip, the bone mineral density of the femoral neck is 0.960 g/cm?, corresponding to a T-score of 1.0 and a Z-score of 2.6. This is within the range of normal. NOTE: T-score: Standard deviation compared with peak bone mass of young adult mean. *Following the recommendations of the International Society of Bone densitometry, classification of hip BMD is based on the lower of two T-scores; total hip or femoral neck. IMPRESSION: 1. Bone mineral density of the lumbar spine within the range of normal. 2. Bone mineral density of the bilateral femoral necks within the range of normal. Reviewed, Interpreted and Dictated by Cathy Giraldo MD Transcribed by Aleyda Steve Authenticated and [facility]
--- OUTSIDE RECORDS SUMMARY | 2025-10-01 14:38 | XMS_ITS | Clinical Summary ---
Author Organization [facility] Address [address] [place] [address] Phone Care Team Providers Care Audio Video Technician Name Role Phone Unavailable Primary Care Provider [...] to complete this topic Insurance OLEGARIO SOUSA [id number] MEDICARE [place] PART A AND B
--- OUTSIDE RECORDS SUMMARY | 2025-10-01 14:38 | XMS_ITS | Clinical Summary ---
Author Organization [facility] Address [address] [place] [address] Care Team Providers Care Prefitter Name Role Phone None, Physician Primary Care [...] patient's age to complete this topic Insurance [facility] OLEGARIO Davis [id number] [place] [address] [employer] Care Teams Prefitter Relationship Specialty Start Date End Date None, Physician PCP - General 02/03/25
== END 2025-10-01 23:59 | disposition home or self-care (01) ==
LOC: RAD 14:32
PROVIDERS: PCP Family Medicine; Visit Provider Family Medicine
DX: S22.080A Wedge compression fracture of T11-T12 vertebra, initial encounter for closed fracture (principal); S32.010A Wedge compression fracture of first lumbar vertebra, initial encounter for closed fracture; X58.XXXA Exposure to other specified factors, initial encounter
CPT/HCPCS: 77080

== ENCOUNTER 2025-10-08 06:10 | Outpatient (CLI) | payer MEDICARE, SELFPAY ==
[2025-10-08 07:05] LABS: Valproic Acid, (Depakene) 29.3 ug/ml (50-100)
== END 2025-10-08 23:59 | disposition home or self-care (01) ==
LOC: LAB.DROPOF 06:10
PROVIDERS: PCP Family Medicine; Visit Provider Nurse Practitioner Family
DX: Z51.81 Encounter for therapeutic drug level monitoring (principal)
CPT/HCPCS: 36415; 80164

== ENCOUNTER 2025-10-17 10:27 | Outpatient (CLI) | payer MEDICARE, SELFPAY ==
[2025-10-17 11:42] LABS: Valproic Acid, (Depakene) 22.0 ug/ml (50-100)
== END 2025-10-17 23:59 | disposition home or self-care (01) ==
LOC: LAB.DROPOF 10:27
PROVIDERS: PCP Family Medicine; Visit Provider Nurse Practitioner Family
DX: F03.918 Unspecified dementia, unspecified severity, with other behavioral disturbance (principal)
CPT/HCPCS: 36415; 80164

== ENCOUNTER 2025-11-02 09:45 | Outpatient (CLI) | payer MEDICARE, SELFPAY ==
--- OUTSIDE RECORDS SUMMARY | 2025-11-02 09:47 | XMS_ITS ---
Author Organization Unknown ENCOUNTERS Encounter Performer Location Date Diagnosis Diagnosis Status Emergency [facility] [address] [place] [address] [id number] XSNF Pre Admit [facility] [address] [place] [address] [id number] Emergency [facility] [address] [place] [address] [id number] XSNF Pre Admit [facility] [address] [place] [address] [id number] Emergency [facility] [address] [place] [address] [id number] ANTONIO Pre Admit [facility] [address] [place] [address] [id number] Emergency [facility] [address] [place] [address] [id number] ANTONIO Pre Admit [facility] [address] [place] [address] [id number] Emergency [facility] [address] [place] [address] [id number] XSNF Pre Admit [facility] [address] [place] [address] [id number] Emergency [facility] [address] [place] [address] [id number] ANTONIO Pre Admit [facility] [address] [place] [address] [id number] Emergency [facility] [address] [place] [address] [id number] XSNF Pre Admit [facility] [address] [place] [address] [id number] Emergency Collin Segovia [address] [place] [address] [id number] ANTONIO Pre Admit Adam Arauz [address] [place] [address] [id number] *Note: Encounters from your own facility or health system may be excluded. Allergies, Adverse Reactions, Alerts Allergen Type Severity Identification Date iodine drug allergy 20240926 Sulfa (Sulfonamide Antibiotics) drug allergy 2 20240926 Medications Name Date Quantity Days Supplied GPI Number
--- OUTSIDE RECORDS SUMMARY | 2025-11-02 09:47 | XMS_ITS | Clinical Summary ---
Author Organization [facility] Address [address] [place] [address] Phone Care Team Providers Care Counter Checker Name Role Phone Unavailable Primary Care Provider [...] patient's age to complete this topic Insurance OLEGAROI SOUSA [id number] MEDICARE [place] PART A AND B
--- OUTSIDE RECORDS SUMMARY | 2025-11-02 09:47 | XMS_ITS | Clinical Summary ---
Author Organization [facility] Address [address] [place] [address] Care Team Providers Care Meal Room Hand Name Role Phone None, Physician Primary Care [...] patient's age to complete this topic Insurance [facility] OLEGARIO [place] [id number] MEDICARE [employer] [facility] Address: [address] [address] [place] [address] Care Teams Meal Room Hand Relationship Specialty Start Date End Date None, Physician PCP - General 02/03/25
[2025-11-02 10:57] LABS: Valproic Acid, (Depakene) 41.4 ug/ml (50-100)
== END 2025-11-02 23:59 | disposition home or self-care (01) ==
LOC: LAB.DROPOF 09:45
PROVIDERS: PCP Family Medicine; Visit Provider Nurse Practitioner Family
DX: F03.918 Unspecified dementia, unspecified severity, with other behavioral disturbance (principal)
CPT/HCPCS: 36415; 80164